=== PATIENT | male | born 1935 | race Caucasian/White ===

== ENCOUNTER → 2017-07-06 | Outpatient (REF) | payer MEDICARE, MEDICAID ==
[~2017-07-06] MED LIST: /ADVA50050; /IPRAINH; /TIOT18INH; ALBU83IN; DUONSOL; LASI20TA; LEVA500T; PRED10TA2; PRED20TA; PRED5TAB; SING10TA31; VALS80CA; VITAMIN D50000 UNT; XOPEAER; ZOCO10TA
[2017-07-06 15:14] LABS: ALBUMIN 3.7 GM/DL (3.2-5.2); ALBUMIN/GLOBULIN RATIO 1.12 (1.00-1.93); ALKALINE PHOSPHATASE 53 U/L (45-117); ALT/SGPT 21 U/L (12-78); ANION GAP 8 MEQ/L (8-16); AST/SGOT 11 U/L (15-37); BILIRUBIN,TOTAL 0.6 MG/DL (0.2-1.0); BLOOD UREA NITROGEN 8 MG/DL (7-18); CALCIUM LEVEL 8.8 MG/DL (8.8-10.2); CARBON DIOXIDE LEVEL 30 MEQ/L (21-32); CHLORIDE LEVEL 92 MEQ/L (98-107); CHOLESTEROL LEVEL 124 MG/DL (<200); CREATININE FOR GFR 0.44 MG/DL (0.70-1.30); GLOMERULAR FILTRATION RATE > 60.0 (>35); GLUCOSE, FASTING 105 MG/DL (83-110); POTASSIUM SERUM 4.2 MEQ/L (3.5-5.1); SODIUM LEVEL 130 MEQ/L (136-145); TRIGLYCERIDES LEVEL 60 MG/DL (<150)
== END ==
LOC: M LAB REF 14:03
PROVIDERS: ATTEND Family Medicine Addiction Medicine
DX: E11.9 Type 2 diabetes mellitus without complications (principal)

== ENCOUNTER 2019-05-20 09:47 | Emergency (ER) | payer MEDICAID, MEDICARE ==
[~2019-05-20] VITALS: Ht 172.7 cm; Wt 54.5 kg
[~2019-05-20 09:47] MED LIST changes: -/ADVA50050; -/IPRAINH; -/TIOT18INH; +ADVA1AER2; +ATRO0.063; +SPIR1CAP
[2019-05-20 09:48] VITALS: BP 112/52
[2019-05-20] MEDS ORDERED: SYMB16INH (09:59)
[2019-05-20] MEDS ORDERED: TAMS1CAP17 PO (09:59)
[2019-05-20] MEDS ORDERED: AZOP0.2S (09:59)
[2019-05-20] MEDS ORDERED: XARE10TA PO (09:59)
[2019-05-20] MEDS ORDERED: ROSU5TAB5 PO (09:59)
[2019-05-20] MEDS ORDERED: TRAV04OPD (09:59)
[2019-05-20] MEDS ORDERED: SPIR1CAP (09:59)
[2019-05-20] MEDS ORDERED: VENTAER (09:59)
[2019-05-20] MEDS ORDERED: DIGO0.12 PO (09:59)
[2019-05-20] MEDS ORDERED: BRIM2OPD (09:59)
[2019-05-20] MEDS ORDERED: ADACEL/BOOSTRIX VACCINE (DIPHTH/PERTUSS/ACELL/TETANUS)0.5ML SYR (90715) IM ONE (10:45)
== END 2019-05-20 11:14 | disposition home or self-care (01) ==
LOC: M ED 09:47
DX: S51.802A Unspecified open wound of left forearm, initial encounter (principal); X58.XXXA Exposure to other specified factors, initial encounter; Y92.018 Other place in single-family (private) house as the place of occurrence of the external cause; J44.9 Chronic obstructive pulmonary disease, unspecified; Z79.899 Other long term (current) drug therapy

== ENCOUNTER 2019-05-25 14:07 | Inpatient (IN) | payer MEDICARE, MEDICAID ==
[~2019-05-25] VITALS: Ht 172.7 cm; Wt 53.9 kg
[~2019-05-25 14:07] MED LIST changes: +AZOP0.2S; +BRIM2OPD; +DIGO0.12 PO; +ROSU5TAB5 PO; +SYMB16INH; +TAMS1CAP17 PO; +TRAV04OPD; +VENTAER; +XARE10TA PO
[2019-05-25] MEDS ORDERED: MONT10TA2 PO (14:18)
[2019-05-25] MEDS ORDERED: ALBUTEROL SULFATE 2.5 MG/0.5 ML INH NEB SOLN As Ordered ONE (14:26)
[2019-05-25] MEDS ORDERED: IPRATROPIUM 0.5MG/ALBUTEROL 2.5MG INH SOL UD 3ML (DUONEB)(J7620) As Ordered ONE (14:26)
[2019-05-25] MEDS ORDERED: ALBUTEROL SULFATE 2.5 MG/0.5 ML INH NEB SOLN INH ONE (14:30)
[2019-05-25] MEDS ORDERED: IPRATROPIUM 0.5MG/ALBUTEROL 2.5MG INH SOL UD 3ML (DUONEB)(J7620) NEB ONE (14:30)
[2019-05-25 15:54] LABS: BASO % 0.1 % (0.0-1.0); HEMATOCRIT 34.9 % (42.0-52.0); HEMOGLOBIN 11.4 g/dl (13.5-17.5); LYMPH # 0.5 10^3/uL (1.5-4.5); MEAN CORPUSCULAR HEMOGLOBIN 28.7 pg (27.0-33.0); MEAN CORPUSCULAR HGB CONC 32.7 g/dl (32.0-36.5); MEAN CORPUSCULAR VOLUME 87.9 fl (80.0-96.0); MONO # 1.1 10^3/uL (0.0-0.8); MONO % 13.9 % (0.0-5.0); NEUTROPHILS # 6.2 10^3/uL (1.8-7.7); NEUTROPHILS % 79.6 % (36.0-66.0); PLATELET COUNT, AUTOMATED 151 10^3/uL (150-450); RED BLOOD COUNT 3.97 10^6/uL (4.30-6.10); WHITE BLOOD COUNT 7.8 10^3/uL (4.0-10.0)
[2019-05-25 16:27] LABS: ALBUMIN 3.1 GM/DL (3.2-5.2); ALT/SGPT 24 U/L (12-78); BILIRUBIN,DIRECT 0.2 MG/DL (0.0-0.2); BILIRUBIN,TOTAL 0.5 MG/DL (0.2-1.0); BLOOD UREA NITROGEN 17 MG/DL (7-18); CALCIUM LEVEL 8.6 MG/DL (8.8-10.2); CARBON DIOXIDE LEVEL 34 MEQ/L (21-32); CHLORIDE LEVEL 88 MEQ/L (98-107); CREATININE FOR GFR 0.42 MG/DL (0.70-1.30); GLOMERULAR FILTRATION RATE > 60.0 (>35); GLUCOSE, FASTING 94 MG/DL (70-100); MAGNESIUM LEVEL 1.9 MG/DL (1.8-2.4); POTASSIUM SERUM 4.6 MEQ/L (3.5-5.1); SODIUM LEVEL 128 MEQ/L (136-145); TOTAL PROTEIN 6.6 GM/DL (6.4-8.2)
[2019-05-25] MEDS ORDERED: AZITHROMYCIN INJ 500 MG, VIAL MATE ADAPTER 1 EACH in D5W 250 ML IV ONE (16:30)
[2019-05-25] MEDS ORDERED: cefTRIAXone SOD 2 GM in D5W MINI-BAG PLUS 50 ML IV ONE (17:00)
[2019-05-25] MEDS ORDERED: GLUCAGON FOR INJ 1 MG VIAL (J1610) SC PRN (17:15)
[2019-05-25] MEDS ORDERED: DEXTROSE 50% 50 ML SYRINGE IV PRN (17:15)
[2019-05-25] MEDS ORDERED: GLUCOSE 4 GM CHEW TABLET PO PRN (17:15)
[2019-05-25] MEDS ORDERED: VENTAER INH (17:25)
[2019-05-25] MEDS ORDERED: SYMB16INH INH (17:25)
[2019-05-25] MEDS ORDERED: SPIR1CAP INH (17:25)
[2019-05-25] MEDS ORDERED: AZOP0.2S OU (17:27)
[2019-05-25] MEDS ORDERED: TRAV04OPD OU (17:27)
[2019-05-25] MEDS ORDERED: BRIM2OPD OU (17:27)
[2019-05-25] MEDS ORDERED: HumaLOG INSULIN (NovoLOG) PER UNIT SC SCH ×2 (17:30→21:00)
--- NOTE | 2019-05-25 17:47 | HPEPDOC ---
General Date of Admission May 25, 2019 at 17:09 Date of Service: May 25, 2019 Chief Complaint The patient is a 83-year-old male Who presented to the emergency room with complaints of shortness of breath History of Present Illness Patient is an 83-year-old male with a PMHx of Chronic hypoxic respiratory failure, COPD on 2L O2 by Venessa BREWER (on Digoxin / Xarelto), HTN, DM2, DLP and BPH who presented to the emergency room visit shortness of breath. Patient was brought into the ER by his son after he reported that he needed a mental health evaluation because he was feeling crazy. Upon arrival to emergency room, patient was found to be hypoxic. Patient was placed on nasal cannula ox ygen and brought up to 2 L. Patients breathing had improved and mentation had improved. Patient has reported that hes been experiencing shortness of breath that has been progressive over 2 weeks. Patient also reports that hes been expressing a productive cough with yellowish sputum. Denied any blood. Patient denies any chest pain or palpitations. Patient has been compliant with his inhaled therapy, however he is unable to recall all of his inhaled therapy. Does report that he uses Albuterol and Spiriva. Patient denies any nausea, vomiting, abdominal pain, diarrhea or discomfort with urination. Patient does report constipation. . He denies any fevers in the last 2 weeks, he does report chills. Patients family has also reported that he has experienced a weight loss of approximately 20 pounds over 1-2 months. Patient has reported a poor appetite. Patient currently lives alone. Patient reports that he may require further assistance moving forward and family is suggesting jail placement. Home Medications Scheduled Brimonidine Tartrate (Brimonidine Tartrate) 0.15% 5ML Drops, 1 DROP OU BID, (Reported) Brinzolamide (Azopt) 1% 10ML Drops.susp, 1 DROP OU BID, (Reported) Budesonide/Formoterol (Symbicort 160-4.5 Mcg Inhaler) 6 Gm Hfa.aer.ad, 2 PUFF INH BID, (Reported) Digoxin (Digoxin) 125 Mcg Tablet, 125 MCG PO DAILY, (Reported) Montelukast Sodium (Montelukast Sodium) 10 Mg Tablet, 10 MG PO DAILY, (Reported) Rivaroxaban (Xarelto) 10 Mg Tablet, 10 MG PO DAILY, (Reported) Rosuvastatin Calcium (Rosuvastatin Calcium) 5 Mg Tablet, 5 MG PO DAILY, (Reported) Tamsulosin Hcl (Tamsulosin HCl) 0.4 Mg Capsule, 0.4 MG PO DAILY, (Reported) Tiotropium Luke (Spiriva) 18 Mcg Cap.w.dev, 18 MCG INH DAILY, (Reported) Travoprost (Travatan Z) 0.004% 2.5ML Drops, 1 DROP OU QHS, (Reported) Scheduled PRN Albuterol Sulfate (Ventolin Hfa) 18 Gm Hfa.aer.ad, 2 PUFF INH Q4H PRN for SHORTNESS OF BREATH, (Reported) Allergies Coded Allergies: No Known Allergies (Verified , 11/18/09) Past Medical History Medical History Chronic hypoxic respiratory failure, COPD on 2L O2 by Venessa BREWER (on Digoxin / Xarelto), HTN, DM2, DLP and BPH Surgical History Bilateral cataract removal Left shoulder surgery Family History - Mother with history of gallstones - Father with history of emphysema Social History - Denies the use of alcohol or illicit drugs; patient is an ex-smoker and had quit in 2003 - Denies recent travel or sick contacts - Lives alone - Occupation; retired construction director Review of Systems Other systems 10 point review of systems complete, all negative otherwise stated in HPI Vital Signs - Vitals: BP 136/63, HR 102, RR 24, Sat 98%NC2L, Temp 96.8F - General: Lying in bed, No acute distress, Speaking in full sentences, AAOx3 - HEENT: NC, AT, PERRLA, EOMI - CVS: +S1S2 - Lungs: Fair air entry bilaterally, No appreciable rales / rhonchi, Mild wheezing - Abdomen: Soft, Non-distended, Non-tender - Extremities: 2+ pitting edema at feet bilaterally, No calf tenderness - Neuro: No focal motor or sensory deficit - Skin: No visible rashes Laboratory Data Labs 24H Laboratory Tests 2 05/25/19 14:26: POC pH (Misc Panel) 7.346L, POC Base Excess (Misc Panel) 16.0H, POC Saturated Percent O2 (Misc) 100H, POC pO2 (Misc Panel) 270.0H, POC pCO2 (Misc Panel) 75.7*H, POC HCO3 (Misc Panel) 41.4H, POC Total CO2 (Misc Panel) 44.0H 05/25/19 15:38: Immature Granulocyte % (Auto) 0.4, White Blood Count 7.8, Red Blood Count 3.97L, Hemoglobin 11.4L, Hematocrit 34.9L, Mean Corpuscular Volume 87.9, Mean Corpuscular Hemoglobin 28.7, Mean Corpuscular Hemoglobin Concent 32.7, Red Cell Distribution Width 13.6, Platelet Count 151, Neutrophils (%) (Auto) 79.6H, Lymphocytes (%) (Auto) 6.0L, Monocytes (%) (Auto) 13.9H, Eosinophils (%) (Auto) 0.0, Basophils (%) (Auto) 0.1, Neutrophils # (Auto) 6.2, Lymphocytes # (Auto) 0.5L, Monocytes # (Auto) 1.1H, Eosinophils # (Auto) 0.0, Basophils # (Auto) 0.0, Nucleated Red Blood Cells % (auto) 0.0, Anion Gap 6L, Glomerular Filtration Rate > 60.0, Calcium Level 8.6L, Magnesium Level 1.9, Aspartate Amino Transf (AST/SGOT) 20, Alanine Aminotransferase (ALT/SGPT) 24, Alkaline Phosphatase 48, Total Bilirubin 0.5, Direct Bilirubin 0.2, Total Protein 6.6, Albumin 3.1L, Albumin/Globulin Ratio 0.89L, Thyroid Stimulating Hormone (TSH) 2.700 05/25/19 17:33: CBC/BMP Laboratory Tests 05/25/19 15:38 Red Blood Count 3.97 L, Mean Corpuscular Volume 87.9, Mean Corpuscular Hemoglobin 28.7, Mean Corpuscular Hemoglobin Concent 32.7, Red Cell Distribution Width 13.6, Neutrophils (%) (Auto) 79.6 H, Lymphocytes (%) (Auto) 6.0 L, Monocytes (%) (Auto) 13.9 H, Eosinophils (%) (Auto) 0.0, Basophils (%) (Auto) 0.1, Neutrophils # (Auto) 6.2, Lymphocytes # (Auto) 0.5 L, Monocytes # (Auto) 1.1 H, Eosinophils # (Auto) 0.0, Basophils # (Auto) 0.0 Microbiology Microbiology 05/25/19 Blood Culture, Received Pending 05/25/19 Blood Culture, Received Pending 05/25/19 Gram Stain, Received Pending 05/25/19 Sputum Culture, Received Pending Plan / VTE VTE Prophylaxis Ordered?: Yes Plan Plan Shortness of breath - likely 2/2 acute COPD exacerbation and community acquired pneumonia - Patient has reported shortness of breath associated with productive cough with yellow sputum - Has reported subjective chills - Patient remains hemodynamically stable and afebrile - No evidence of leukocytosis - CXR 05/25: Diffuse interstitial infiltrate in left lung - Will start patient on ceftriaxone and azithromycin; will continue with Solu- Medrol - c/w inhaled therapy as ordered Bilateral pitting edema at lower extremities - Patient does not have a history of congestive heart failure - Not a diuretic therapy as an outpatient - Will get echocardiogram to evaluate ejection fraction - Will give single dose furosemide Chronic hypoxic respiratory failure - Patient uses 2 L of nasal cannula at baseline - Will continue with current oxygen therapy to maintain saturation between 88, 92 Hyponatremia - possibly 2/2 hypotonic euvolemic etiology, possibly 2/2 hypotonic hypervolemic etiology - Will check urine / serum osmolality, urine electrolytes, Thyroid function and Coritsol levels - Will hold off on IV fluids at this time - Will give Furosemide x1 dose now A. fib - c/w rate / rhythm control with Digoxin - c/w full anticoagulation with Xarelto HTN - Blood pressure appears normotensive emergency room - Well continue to monitor DM2 - Patient is reported that he has a history of diabetes but is currently not on any medications - Will check A1c - Will start ISS DLP - c/w statin BPH - c/w Tamsulosin DVT prophylaxis - c/w full anticoagulation with Xarelto REJI PLASCENCIA MD May 25, 2019 17:47
[2019-05-25] MEDS ORDERED: FUROSEMIDE 40 MG/4 ML VIAL (J1940) IV ONE (18:00)
[2019-05-25 18:12] LABS: FREE T4 1.23 NG/DL (0.76-1.46); THYROID STIMULATING HORMONE 2.74 uIU/ML (0.358-3.740)
[2019-05-25 18:48] VITALS: BP 124/56
--- NOTE | 2019-05-25 19:26 | ECGEPIP ---
[facility] - ED Test Date: 2019-05-25 Pat Name: JOIE CHESTER Department: Room: [facility] Gender: Male Extermination Inspector: : [id number] Requested By: TYRELL Dunn Order Number: [id number] Reading MD: Daphne Huertas Measurements Intervals [place] Rate: 96 P: VT: -1 QRS: 65 QRSD: 94 T: 91 QT: 331 QTc: 420 Interpretive Statements ATRIAL FIBRILLATION POSSIBLE RIGHT VENTRICULAR CONDUCTION DELAY MINIMAL ST DEPRESSION ABNORMAL RHYTHM ECG 02/22/[address] T WAVE CHANGES Electronically Signed on 05-25-2019 19:26:07 EDT by Daphne Huertas
[2019-05-25] MEDS: methylPREDNISolone INJ 40 MG/1 ML VIAL (J2920) IV SCH (19:29)
[2019-05-25 20:37] LABS: CORTISOL BASELINE 20.5 UG/DL (4.3-22.4); TOTAL T3 67.7 NG/DL (60.0-181.0)
[2019-05-25] MEDS: BRIMONIDINE 0.15% OPHTH SOLN 5 ML OU SCH (21:00)
[2019-05-25] MEDS: LATANOPROST 0.005% OPHTH SOLN 2.5 ML OU SCH (21:00)
[2019-05-25 22:00] VITALS: BP 131/59
[2019-05-25] MEDS: IPRATROPIUM 0.5MG/ALBUTEROL 2.5MG INH SOL UD 3ML (DUONEB)(J7620) NEB SCH (22:06)
[2019-05-25] MEDS: SYMBICORT 160/4.5MCG INHALER 6GM INH SCH (22:10)
[2019-05-26] MEDS: methylPREDNISolone INJ 40 MG/1 ML VIAL (J2920) IV SCH ×3 (01:39→17:10)
[2019-05-26] MEDS: IPRATROPIUM 0.5MG/ALBUTEROL 2.5MG INH SOL UD 3ML (DUONEB)(J7620) NEB SCH ×4 (02:00→18:40)
[2019-05-26] MEDS: IPRATROPIUM 0.5MG/ALBUTEROL 2.5MG INH SOL UD 3ML (DUONEB)(J7620) NEB PRN ×2 (05:21→21:28)
[2019-05-26 06:00] VITALS: BP 118/77
--- NOTE | 2019-05-26 07:25 | REP ---
CHEST, PORTABLE: Two AP portable views of the chest are performed and compared to a prior study of 02/09/2012. Diffuse interstitial infiltrate is seen in the left lung. There is mild underlying interstitial fibrosis bilaterally. The heart is not significantly enlarged. There is calcification and tortuosity of the thoracic aorta. The mediastinal silhouette is unchanged. IMPRESSION: Diffuse interstitial infiltrate, left lung. Electronically Signed by Parminder Salcedo MD 05/26/2019 10:22 P
[2019-05-26 07:29] LABS: HEMATOCRIT 34.8 % (42.0-52.0); HEMOGLOBIN 11.6 g/dl (13.5-17.5); LYMPH % 7.3 % (24.0-44.0); MEAN CORPUSCULAR HEMOGLOBIN 29.9 pg (27.0-33.0); MEAN CORPUSCULAR HGB CONC 33.3 g/dl (32.0-36.5); MEAN CORPUSCULAR VOLUME 89.7 fl (80.0-96.0); MONO # 0.1 10^3/uL (0.0-0.8); MONO % 3.7 % (0.0-5.0); NEUTROPHILS # 2.4 10^3/uL (1.8-7.7); NEUTROPHILS % 88.6 % (36.0-66.0); PLATELET COUNT, AUTOMATED 201 10^3/uL (150-450); RED BLOOD COUNT 3.88 10^6/uL (4.30-6.10); WHITE BLOOD COUNT 2.7 10^3/uL (4.0-10.0)
[2019-05-26] MEDS: SYMBICORT 160/4.5MCG INHALER 6GM INH SCH ×2 (07:43→21:28)
[2019-05-26] MEDS: TIOTROPIUM INHALER/CAPSULE (SPIRIVA) INH SCH (07:43)
[2019-05-26 07:47] LABS: BLOOD UREA NITROGEN 14 MG/DL (7-18); CALCIUM LEVEL 8.7 MG/DL (8.8-10.2); CARBON DIOXIDE LEVEL 39 MEQ/L (21-32); CHLORIDE LEVEL 82 MEQ/L (98-107); CREATININE FOR GFR 0.46 MG/DL (0.70-1.30); GLOMERULAR FILTRATION RATE > 60.0 (>35); GLUCOSE, FASTING 117 MG/DL (70-100); MAGNESIUM LEVEL 1.8 MG/DL (1.8-2.4); POTASSIUM SERUM 4.2 MEQ/L (3.5-5.1); SODIUM LEVEL 129 MEQ/L (136-145)
[2019-05-26 07:53] LABS: LYMPH # 0.2 10^3/uL (1.5-4.5)
[2019-05-26 08:02] LABS: HEMOGLOBIN A1c 5.7 %
[2019-05-26] MEDS ORDERED: FUROSEMIDE 40 MG/4 ML VIAL (J1940) IV ONE (08:15)
[2019-05-26] MEDS: TAMSULOSIN 0.4 MG CAP PO SCH (09:39)
[2019-05-26] MEDS: DIGOXIN 0.125 MG TAB PO SCH (09:39)
[2019-05-26] MEDS: ROSUVASTATIN 10 MG TAB (CRESTOR) PO SCH (09:40)
[2019-05-26] MEDS: RIVAROXABAN 10 MG TAB (XARELTO) PO SCH (09:40)
[2019-05-26] MEDS: MONTELUKAST 10 MG TAB PO SCH (09:40)
[2019-05-26] MEDS: BRIMONIDINE 0.15% OPHTH SOLN 5 ML OU SCH ×2 (09:41→22:45)
--- NOTE | 2019-05-26 11:53 | IPNPDOC ---
Text Note Date of Service The patient was seen on 05/26/19. NOTE Subjective: Patient is an 83-year-old male with a PMHx of Chronic hypoxic respiratory failure, COPD on 2L O2 by Venessa BREWER fib (on Digoxin / Xarelto), HTN, D M2, DLP and BPH who presented to the emergency room visit shortness of breath. Patient was brought into the ER by his son after he reported that he needed a mental health evaluation because he was feeling crazy. Upon arrival to emergency room, patient was found to be hypoxic. Patient was placed on nasal cannula oxygen and brought up to 2 L. Patients breathing had improved and mentation had improved. Patient has reported that hes been experiencing shortness of breath that has been progressive over 2 weeks. Patient also reports that hes been expressing a productive cough with yellowish sputum. Denied any blood. Patient denies any chest pain or palpitations. Patient has been compliant with his inhaled therapy, however he is unable to recall all of his inhaled therapy. Does report that he uses Albuterol and Spiriva. Patient was seen and examined at the bedside. . Currently, patient reports that his breathing is doing better. Still reports a mild cough. Denies chest pain or palpitations. Patient denies any abdominal pain, diarrhea or discomfort with urination. This morning patient had noted to the nurse at, he had thoughts of killing himself; reported to nurse, "I'm feeling suicidal, I want to hang myself." Patient reports that he has a history of suicidal ideation. When asked if he ever has planned to harm himself. He reported that he is not going to tell me. Objective: Vitals (See below) General: Lying in bed, no acute distress, comfortable, AAOx3 HEENT: NC, AT CVS: +S1S2 Lungs: Fair air entry b/l, there does not appear to be any auscultated rhonchi, rales or wheezing Abdomen: Soft, ND, NT Extremities: Trace to 1+ edema noted, - Calf tenderness Assessment and plan: Shortness of breath - likely 2/2 acute COPD exacerbation and community acquired pneumonia - Patient has reported shortness of breath associated with productive cough with yellow sputum - Has reported subjective chills - Patient remains hemodynamically stable and afebrile - No evidence of leukocytosis - CXR 05/25: Diffuse interstitial infiltrate in left lung - c/w ceftriaxone and azithromycin (day #2); - c/w Solu-Medrol; will continue with current dose - c/w inhaled therapy as ordered Bilateral pitting edema at lower extremities - Patient does not have a history of congestive heart failure - Not a diuretic therapy as an outpatient - Will get echocardiogram to evaluate ejection fraction - s/p Furosemide x1; will give additional dose today Chronic hypoxic respiratory failure - Patient uses 2 L of nasal cannula at baseline - Will continue with current oxygen therapy to maintain saturation between 88, 92 Hyponatremia - possibly 2/2 hypotonic euvolemic etiology, possibly 2/2 hypotonic hypervolemic etiology - Will check urine / serum osmolality, urine electrolytes, Thyroid function and Coritsol levels - Hold off on IV fluids at this time - c/w Furosemide Suicidal ideation - Patient has reported this morning that he had thoughts of harming himself; has reported history of self harm thoughts in the past - Will c/w Bed side sitter - Will get Psychiatry evaluation; discussed with Dr. Dajuan Clifford fib - c/w rate / rhythm control with Digoxin - c/w full anticoagulation with Xarelto HTN - Blood pressure appears normotensive emergency room - Well continue to monitor Hyperglycemia history - Patient is reported that he has a history of diabetes but is currently not on any medications - A1c of 5.7 - Will DC ISS DLP - c/w statin BPH - c/w Tamsulosin DVT prophylaxis - c/w full anticoagulation with Xarelto VS,Fishbone, I+O VS, Fishbone, I+O Laboratory Tests 05/25/19 15:38 Red Blood Count 3.97 L, Mean Corpuscular Volume 87.9, Mean Corpuscular Hemoglobin 28.7, Mean Corpuscular Hemoglobin Concent 32.7, Red Cell Distribution Width 13.6, Neutrophils (%) (Auto) 79.6 H, Lymphocytes (%) (Auto) 6.0 L, Monocytes (%) (Auto) 13.9 H, Eosinophils (%) (Auto) 0.0, Basophils (%) (Auto) 0 .1, Neutrophils # (Auto) 6.2, Lymphocytes # (Auto) 0.5 L, Monocytes # (Auto) 1.1 H, Eosinophils # (Auto) 0.0, Basophils # (Auto) 0.0 05/26/19 07:16 Red Blood Count 3.88 L, Mean Corpuscular Volume 89.7, Mean Corpuscular Hemoglobin 29.9, Mean Corpuscular Hemoglobin Concent 33.3, Red Cell Distribution Width 13.6, Neutrophils (%) (Auto) 88.6 H, Lymphocytes (%) (Auto) 7.3 L, Emmons cytes (%) (Auto) 3.7, Eosinophils (%) (Auto) 0.0, Basophils (%) (Auto) 0.0, Neutrophils # (Auto) 2.4, Lymphocytes # (Auto) 0.2 L, Monocytes # (Auto) 0.1, Eosinophils # (Auto) 0.0, Basophils # (Auto) 0.0, Calcium Level 8.7 L Vital Signs Date Time Temp Pulse Resp B/P (MAP) Pulse Ox O2 Delivery O2 Flow Rate FiO2 05/26/19 09:39 113 05/26/19 06:00 97.8 22 118/77 (91) 95 2.0 05/25/19 18:10 Nasal Cannula I&O- Last 24 Hours up to 6 AM 05/26/19 06:00 Intake Total 570 ml Output Total 400 ml Balance 170 ml REJI PLASCENCIA MD May 26, 2019 11:53
[2019-05-26 14:00] VITALS: BP 120/71
[2019-05-26] MEDS ORDERED: cefTRIAXone SOD 1 GM in D5W MINI-BAG PLUS 50 ML IV SCH (16:00)
[2019-05-26] MEDS ORDERED: AZITHROMYCIN INJ 500 MG, VIAL MATE ADAPTER 1 EACH in D5W 250 ML IV SCH (17:00)
[2019-05-26 22:00] VITALS: BP 117/74
[2019-05-26] MEDS: LATANOPROST 0.005% OPHTH SOLN 2.5 ML OU SCH (23:01)
[2019-05-26] MEDS ORDERED: CALCIUM CARBONATE 500 MG CHEW U/D PO PRN (23:15)
[2019-05-27] MEDS: IPRATROPIUM 0.5MG/ALBUTEROL 2.5MG INH SOL UD 3ML (DUONEB)(J7620) NEB SCH ×5 (01:45→19:34)
[2019-05-27] MEDS: methylPREDNISolone INJ 40 MG/1 ML VIAL (J2920) IV SCH ×2 (02:47→09:39)
[2019-05-27 05:25] VITALS: BP 115/70
[2019-05-27 06:00] VITALS: BP 115/70
[2019-05-27 06:10] LABS: HEMATOCRIT 33.2 % (42.0-52.0); LYMPH # 0.3 10^3/uL (1.5-4.5); LYMPH % 2.8 % (24.0-44.0); MEAN CORPUSCULAR HEMOGLOBIN 28.6 pg (27.0-33.0); MEAN CORPUSCULAR HGB CONC 33.1 g/dl (32.0-36.5); MEAN CORPUSCULAR VOLUME 86.2 fl (80.0-96.0); MONO # 0.8 10^3/uL (0.0-0.8); MONO % 8.9 % (0.0-5.0); NEUTROPHILS # 8.1 10^3/uL (1.8-7.7); NEUTROPHILS % 87.8 % (36.0-66.0); PLATELET COUNT, AUTOMATED 207 10^3/uL (150-450); RED BLOOD COUNT 3.85 10^6/uL (4.30-6.10); WHITE BLOOD COUNT 9.3 10^3/uL (4.0-10.0)
[2019-05-27 06:34] LABS: BLOOD UREA NITROGEN 21 MG/DL (7-18); CALCIUM LEVEL 8.6 MG/DL (8.8-10.2); CARBON DIOXIDE LEVEL 41 MEQ/L (21-32); CHLORIDE LEVEL 82 MEQ/L (98-107); CREATININE FOR GFR 0.52 MG/DL (0.70-1.30); GLOMERULAR FILTRATION RATE > 60.0 (>35); GLUCOSE, FASTING 122 MG/DL (70-100); POTASSIUM SERUM 3.7 MEQ/L (3.5-5.1); SODIUM LEVEL 127 MEQ/L (136-145)
[2019-05-27] MEDS: LevoFLOXacin 750 MG TABLET PO SCH (07:41)
[2019-05-27] MEDS ORDERED: ONDANSETRON 4MG/2ML VIAL (J2405) IV PRN (07:45)
--- NOTE | 2019-05-27 08:09 | REP ---
Portable chest, two AP views with the the patient upright, 07:54 a.m.: Comparison is 05/25/2019. Hyperinflation is again identified, unchanged. Diffuse interstitial infiltrate throughout the left lung is unchanged. Right lung is otherwise clear, unchanged. Cardiac size is normal. The vamsi and mediastinum are unchanged. 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 Impression: There is no interval change. Electronically Signed by Parminder Rodriguez MD 05/27/2019 08:01 A
[2019-05-27] MEDS: SYMBICORT 160/4.5MCG INHALER 6GM INH SCH ×2 (08:29→19:34)
[2019-05-27] MEDS: TIOTROPIUM INHALER/CAPSULE (SPIRIVA) INH SCH (08:30)
[2019-05-27] MEDS: ROSUVASTATIN 10 MG TAB (CRESTOR) PO SCH (09:40)
[2019-05-27] MEDS: TAMSULOSIN 0.4 MG CAP PO SCH (09:40)
[2019-05-27] MEDS: DIGOXIN 0.125 MG TAB PO SCH (09:40)
[2019-05-27] MEDS: BRIMONIDINE 0.15% OPHTH SOLN 5 ML OU SCH ×2 (09:41→21:27)
[2019-05-27] MEDS: RIVAROXABAN 10 MG TAB (XARELTO) PO SCH (09:41)
[2019-05-27] MEDS: MONTELUKAST 10 MG TAB PO SCH (09:41)
--- NOTE | 2019-05-27 11:05 | IPNPDOC ---
Text Note Date of Service The patient was seen on 05/27/19. NOTE Subjective: Patient is an 83-year-old male with a PMHx of Chronic hypoxic respiratory failure, COPD on 2L O2 by Venessa BREWER (on Digoxin / Xarelto), HTN, D M2, DLP and BPH who presented to the emergency room visit shortness of breath. Patient was brought into the ER by his son after he reported that he needed a mental health evaluation because he was feeling crazy. Upon arrival to emergency room, patient was found to be hypoxic. Patient was placed on nasal cannula oxygen and brought up to 2 L. Patients breathing had improved and mentation had improved. Patient has reported that hes been experiencing shortness of breath that has been progressive over 2 weeks. Patient also reports that hes been expressing a productive cough with yellowish sputum. Denied any blood. Patient denies any chest pain or palpitations. Patient has been compliant with his inhaled therapy, however he is unable to recall all of his inhaled therapy. Does report that he uses Albuterol and Spiriva. Patient was seen and examined at the bedside. Patient reports that he was experiencing nausea and vomiting overnight. Currently denies any chest pain, shortness of breath or palpitations. Patient does report cough. Denies any abdominal pain, diarrhea, or burning with urination. Objective: Vitals (See below) General: Lying in bed, no acute distress, comfortable, AAOx3 HEENT: NC, AT CVS: +S1S2 Lungs: Air entry remains fair bilaterally without evidence of rhonchi, rales or wheezing Abdomen: Soft, nondistended, without tenderness Extremities: There is trace pitting edema bilaterally, - Calf tenderness Assessment and plan: Shortness of breath - likely 2/2 acute COPD exacerbation and Pseudomonas pneumonia - Patient has reported shortness of breath associated with productive cough with yellow sputum - Has reported subjective chills - Patient remains hemodynamically stable and afebrile - No evidence of leukocytosis - Sputum culture: Pseudomonas - CXR 05/25: Diffuse interstitial infiltrate in left lung - Will start Levaquin; Will DC ceftriaxone and azithromycin (Antibiotic Day #3) - c/w Solu-Medrol; will reduce frequency - c/w inhaled therapy as ordered Bilateral pitting edema at lower extremities - Appears to have improved - Patient does not have a history of congestive heart failure - Not a diuretic therapy as an outpatient - Echocardiogram pending - s/p Furosemide x2 Chronic hypoxic respiratory failure - Patient uses 2 L of nasal cannula at baseline - Will continue with current oxygen therapy to maintain saturation between 88, 92 Hyponatremia - possibly 2/2 hypotonic euvolemic etiology, possibly 2/2 hypotonic hypervolemic etiology - Hypotonic osmolality - Urine electrolytes pending - Thyroid function and Cortisol levels noted and within normal limits - Hold off on IV fluids at this time - s/p Furosemide Suicidal ideation - Patient has reported on 05/26 AM that he had thoughts of harming himself; has reported history of self harm thoughts in the past - c/w Bed side sitter - Psychiatry consulted; discussed with Dr. Graff - will evaluate today A. fib - c/w rate / rhythm control with Digoxin - c/w full anticoagulation with Xarelto HTN - Blood pressure appears normotensive emergency room - Will continue to monitor Hyperglycemia history - Patient is reported that he has a history of diabetes but is currently not on any medications - A1c of 5.7 - s/p ISS DLP - c/w statin BPH - c/w Tamsulosin DVT prophylaxis - c/w full anticoagulation with Xarelto Disposition: - Psychiatry evaluation - Hyponatremia evaluation - Pseudomonas pneumonia / COPD treatment - Likely will require placement to [facility] VS,Fishbone, I+O VS, Fishbone, I+O Laboratory Tests 05/27/19 05:52 Red Blood Count 3.85 L, Mean Corpuscular Volume 86.2, Mean Corpuscular Hemoglobin 28.6, Mean Corpuscular Hemoglobin Concent 33.1, Red Cell Distribution Width 13.9, Neutrophils (%) (Auto) 87.8 H, Lymphocytes (%) (Auto) 2.8 L, Monocytes (%) (Auto) 8.9 H, Eosinophils (%) (Auto) 0.0, Basophils (%) (Auto) 0.0, Neutrophils # (Auto) 8.1 H, Lymphocytes # (Auto) 0.3 L, Monocytes # (Auto) 0.8, Eosinophils # (Auto) 0.0, Basophils # (Auto) 0.0, Calcium Level 8.6 L Vital Signs Date Time Temp Pulse Resp B/P (MAP) Pulse Ox O2 Delivery O2 Flow Rate FiO2 05/27/19 09:40 110 05/27/19 06:00 98.2 22 115/70 (85) 88 2.0 05/25/19 18:10 Nasal Cannula I&O- Last 24 Hours up to 6 AM 05/27/19 06:00 Intake Total 1040 ml Output Total 850 ml Balance 190 ml REJI PLASCENCIA MD May 27, 2019 11:05
[2019-05-27 12:50] LABS: BLOOD UREA NITROGEN 22 MG/DL (7-18); CALCIUM LEVEL 8.6 MG/DL (8.8-10.2); CARBON DIOXIDE LEVEL 39 MEQ/L (21-32); CHLORIDE LEVEL 81 MEQ/L (98-107); CREATININE FOR GFR 0.49 MG/DL (0.70-1.30); GLOMERULAR FILTRATION RATE > 60.0 (>35); GLUCOSE, FASTING 125 MG/DL (70-100); POTASSIUM SERUM 4.1 MEQ/L (3.5-5.1); SODIUM LEVEL 127 MEQ/L (136-145)
[2019-05-27 14:00] VITALS: BP 119/70
[2019-05-27 14:50] LABS: CREATININE,RANDOM URINE 90.6 MG/DL; POTASSIUM RANDOM URINE 55.3 MEQ/L
[2019-05-27 18:00] VITALS: BP 123/70
[2019-05-27 18:33] VITALS: BP 123/70
[2019-05-27 20:47] VITALS: BP 100/58
[2019-05-27] MEDS: LATANOPROST 0.005% OPHTH SOLN 2.5 ML OU SCH (21:27)
[2019-05-27] MEDS ORDERED: methylPREDNISolone INJ 40 MG/1 ML VIAL (J2920) IV SCH (22:00)
[2019-05-28] VITALS (9 sets, daily range): BP systolic 120–159; BP diastolic 60–88
[2019-05-28] MEDS: LevoFLOXacin 750 MG TABLET PO SCH (05:52)
[2019-05-28 06:09] LABS: HEMATOCRIT 33.5 % (42.0-52.0); LYMPH % 3.6 % (24.0-44.0); MEAN CORPUSCULAR HEMOGLOBIN 29.3 pg (27.0-33.0); MEAN CORPUSCULAR HGB CONC 32.8 g/dl (32.0-36.5); MEAN CORPUSCULAR VOLUME 89.3 fl (80.0-96.0); MONO # 0.8 10^3/uL (0.0-0.8); NEUTROPHILS # 5.2 10^3/uL (1.8-7.7); NEUTROPHILS % 82.6 % (36.0-66.0); PLATELET COUNT, AUTOMATED 200 10^3/uL (150-450); RED BLOOD COUNT 3.75 10^6/uL (4.30-6.10); WHITE BLOOD COUNT 6.3 10^3/uL (4.0-10.0)
[2019-05-28 06:28] LABS: BLOOD UREA NITROGEN 20 MG/DL (7-18); CALCIUM LEVEL 8.6 MG/DL (8.8-10.2); CARBON DIOXIDE LEVEL 40 MEQ/L (21-32); CHLORIDE LEVEL 83 MEQ/L (98-107); CREATININE FOR GFR 0.44 MG/DL (0.70-1.30); GLOMERULAR FILTRATION RATE > 60.0 (>35); GLUCOSE, FASTING 133 MG/DL (70-100); MAGNESIUM LEVEL 1.9 MG/DL (1.8-2.4); POTASSIUM SERUM 3.7 MEQ/L (3.5-5.1); SODIUM LEVEL 126 MEQ/L (136-145)
[2019-05-28 06:52] LABS: LYMPH # 0.2 10^3/uL (1.5-4.5)
[2019-05-28] MEDS: SYMBICORT 160/4.5MCG INHALER 6GM INH SCH ×2 (07:23→19:38)
[2019-05-28] MEDS: TIOTROPIUM INHALER/CAPSULE (SPIRIVA) INH SCH (07:23)
[2019-05-28] MEDS: IPRATROPIUM 0.5MG/ALBUTEROL 2.5MG INH SOL UD 3ML (DUONEB)(J7620) NEB SCH ×2 (07:23→14:00)
[2019-05-28] MEDS ORDERED: predniSONE 20 MG TAB PO SCH (09:00)
[2019-05-28] MEDS: DIGOXIN 0.125 MG TAB PO SCH (09:55)
[2019-05-28] MEDS: BRIMONIDINE 0.15% OPHTH SOLN 5 ML OU SCH ×2 (09:56→20:19)
[2019-05-28] MEDS: RIVAROXABAN 10 MG TAB (XARELTO) PO SCH (09:56)
[2019-05-28] MEDS: TAMSULOSIN 0.4 MG CAP PO SCH (09:56)
[2019-05-28] MEDS: MONTELUKAST 10 MG TAB PO SCH (09:56)
[2019-05-28] MEDS: ROSUVASTATIN 10 MG TAB (CRESTOR) PO SCH (09:56)
--- NOTE | 2019-05-28 11:08 | IPNPDOC ---
Date Seen The patient was seen on 05/28/19. Progress Note SUBJECTIVE: Lost iv access. solumedrol discontinued. on po prednisone Son at the bedside is requesting placement as the pt lives alone. 2 sons and a daughter are unable to provide 29/05 care. some sob and chisholm. no le edema. no chest pain, pressure or heaviness. denies lightheadedness or dizziness . on levaquin for pseudomonas in sputum OBJECTIVE: PHYSICAL EXAMINATION: - Vitals: pls see below - General: Lying in bed, No acute distress, Speaking in full sentences, AAOx3 - HEENT: NC, AT, PERRLA, EOMI - CVS: +S1S2 - Lungs: Fair air entry bilaterally, left lung rhonchi, Mild wheezing - Abdomen: Soft, Non-distended, Non-tender - Extremities: No calf tenderness - Neuro: No focal motor or sensory deficit - Skin: No visible rashes ADMISSION LABORATORY DATA: 05/25/19 14:26: POC pH (Misc Panel) 7.346L, POC Base Excess (Misc Panel) 16.0H, POC Saturated Percent O2 (Misc) 100H, POC pO2 (Misc Panel) 270.0H, POC pCO2 (Misc Panel) 75.7*H, POC HCO3 (Misc Panel) 41.4H, POC Total CO2 (Misc Panel) 44.0H 05/25/19 15:38: Immature Granulocyte % (Auto) 0.4, White Blood Count 7.8, Red Blood Count 3.97L, Hemoglobin 11.4L, Hematocrit 34.9L, Mean Corpuscular Volume 87.9, Mean Corpuscular Hemoglobin 28.7, Mean Corpuscular Hemoglobin Concent 32.7, Red Cell Distribution Width 13.6, Platelet Count 151, Neutrophils (%) (Auto) 79.6H, Lymphocytes (%) (Auto) 6.0L, Monocytes (%) (Auto) 13.9H, Eosinophils (%) (Auto) 0.0, Basophils (%) (Auto) 0.1, Neutrophils # (Auto) 6.2, Lymphocytes # (Auto) 0.5L, Monocytes # (Auto) 1.1H, Eosinophils # (Auto) 0.0, Basophils # (Auto) 0.0, Nucleated Red Blood Cells % (auto) 0.0, Anion Gap 6L, Glomerular Filtration Rate > 60.0, Calcium Level 8.6L, Magnesium Level 1.9, Aspartate Amino Transf (AST/SGOT) 20, Alanine Aminotransferase (ALT/SGPT) 24, Alkaline Phosphatase 48, Total Bilirubin 0.5, Direct Bilirubin 0.2, Total Protein 6.6, Albumin 3.1L, Albumin/Globulin Ratio 0.89L, Thyroid Stimulating Hormone (TSH) 2.700 05/25/19 17:33: CBC/BMP Laboratory Tests 05/25/19 15:38 Red Blood Count 3.97 L, Mean Corpuscular Volume 87.9, Mean Corpuscular Hemoglobin 28.7, Mean Corpuscular Hemoglobin Concent 32.7, Red Cell Distribution Width 13.6, Neutrophils (%) (Auto) 79.6 H, Lymphocytes (%) (Auto) 6.0 L, Monocytes (%) (Auto) 13.9 H, Eosinophils (%) (Auto) 0.0, Basophils (%) (Auto) 0.1, Neutrophils # (Auto) 6.2, Lymphocytes # (Auto) 0.5 L, Monocytes # (Auto) 1.1 H, Eosinophils # (Auto) 0.0, Basophils # (Auto) 0.0 Microbiology LABORATORY DATA, IMAGING STUDIES, MICROBIOLOGY: PLS SEE BELOW ASSESSMENT AND PLAN: Patient is an 83-year-old male with a PMHx of Chronic hypoxic respiratory failure, COPD on 2L O2 by Venessa BREWER (on Digoxin / Xarelto), HTN, DM2, DLP and BPH who presented to the emergency room visit shortness of breath.Patient was brought into the ER by his son after he reported that he needed a mental health evaluation because he was feeling crazy. Upon arrival to emergency room, patient was found to be hypoxic. Patient was placed on nasal cannula oxygen and brought up to 2 L. Patients breathing had improved and mentation had improved.Patient has reported that hes been experiencing shortness of breath that has been progressive over 2 weeks. Patient also reports that hes been expressing a productive cough with yellowish sputum. Denied any blood. Patient denies any chest pain or palpitations. Patient has been compliant with his inhaled therapy, however he is unable to recall all of his inhaled therapy. Does report that he uses Albuterol and Spiriva.Patient denies any nausea, vomiting, abdominal pain, diarrhea or discomfort with urination. Patient does report constipation. . He denies any fevers in the last 2 weeks, he does report chills. Patients family has also reported that he has experienced a weight loss of approximately 20 pounds over 1-2 months. Patient has reported a poor appetite. Patient currently lives alone. Patient reports that he may require further assistance moving forward and family is suggesting jail placement. acute COPD exacerbation - due to Left lung community acquired pneumonia - Patient has reported shortness of breath associated with productive cough with yellow sputum - Has reported subjective chills - Patient remains hemodynamically stable and afebrile - No evidence of leukocytosis - CXR 05/25: Diffuse interstitial infiltrate in left lung - on levaquin - s/p IV Solu-Medrol lost iv access, changed to po prednisone 05/28/19 - c/w inhaled therapy as ordered Left lung community acquired pneumonia -on levaquin -sputum cx: pseudomonas sensitive Bilateral pitting edema at lower extremities - Patient does not have a history of congestive heart failure - Not a diuretic therapy as an outpatient - echocardiogram to evaluate ejection fraction - s/p furosemide - venous dopplers to r/o dvt Chronic hypoxic respiratory failure - Patient uses 2 L of nasal cannula at baseline - Will continue with current oxygen therapy to maintain saturation between 88, 92 Hyponatremia - possibly 2/2 hypotonic euvolemic etiology, possibly 2/2 hypotonic hypervolemic etiology - reviewed urine / serum osmolality, urine electrolytes, Thyroid function and Coritsol levels - no IV fluids at this time - s/p one dose of lasix A. fib - c/w rate / rhythm control with Digoxin - c/w full anticoagulation with Xarelto HTN - Blood pressure appears normotensive emergency room - Well continue to monitor DM2 - Patient is reported that he has a history of diabetes but is currently not on any medications - reviewd A1c5.7 DLP - c/w statin BPH - c/w Tamsulosin DVT prophylaxis - c/w full anticoagulation with Xarelto disposition: family requests placement. VS, I&O, 24H, Fishbone Vital Signs/I&O Vital Signs Date Time Temp Pulse Resp B/P (MAP) Pulse Ox O2 Delivery O2 Flow Rate FiO2 05/28/19 09:55 108 05/28/19 05:47 98.0 20 127/62 (83) 91 05/27/19 21:27 2.0 05/25/19 18:10 Nasal Cannula I&O- Last 24 Hours up to 6 AM 05/28/19 06:00 Intake Total 1390 ml Output Total 865 ml Balance 525 ml Laboratory Data 24H LABS Laboratory Tests 2 05/27/19 11:54: Anion Gap 7L, Glomerular Filtration Rate > 60.0, Blood Urea Nitrogen 22H, Creatinine 0.49L, Sodium Level 127L, Potassium Level 4.1, Chloride Level 81L, Carbon Dioxide Level 39H, Calcium Level 8.6L 05/27/19 14:06: Urine Random Osmolality 670, Urine Random Creatinine 90.6, Urine Random Sodium 27, Urine Random Potassium 55.3, Urine Random Chloride 13 05/28/19 05:32: Anion Gap 3L, Glomerular Filtration Rate > 60.0, Blood Urea Nitrogen 20H, Creatinine 0.44L, Sodium Level 126L, Potassium Level 3.7, Chloride Level 83L, Ca rbon Dioxide Level 40H, Calcium Level 8.6L, Immature Granulocyte % (Auto) 0.8, White Blood Count 6.3, Red Blood Count 3.75L, Hemoglobin 11.0L, Hematocrit 33.5L, Mean Corpuscular Volume 89.3, Mean Corpuscular Hemoglobin 29.3, Mean Corpuscular Hemoglobin Concent 32.8, Red Cell Distribution Width 13.8, Platelet Count 200, Neutrophils (%) (Auto) 82.6H, Lymphocytes (%) (Auto) 3.6L, Monocytes (%) (Auto) 13.0H, Eosinophils (%) (Auto) 0.0, Basophils (%) (Auto) 0.0, Neutrophils # (Auto) 5.2, Lymphocytes # (Auto) 0.2L, Monocytes # (Auto) 0.8, Eosinophils # (Auto) 0.0, Basophils # (Auto) 0.0, Nucleated Red Blood Cells % (auto) 0.0, Magnesium Level 1.9 CBC/BMP Laboratory Tests 05/27/19 11:54 Calcium Level 8.6 L 05/28/19 05:32 Calcium Level 8.6 L, Red Blood Count 3.75 L, Mean Corpuscular Volume 89.3, Mean Corpuscular Hemoglobin 29.3, Mean Corpuscular Hemoglobin Concent 32.8, Red Cell Distribution Width 13.8, Neutrophils (%) (Auto) 82.6 H, Lymphocytes (%) (Auto) 3.6 L, Monocytes (%) (Auto) 13.0 H, Eosinophils (%) (Auto) 0.0, Basophils (%) (Auto) 0.0, Neutrophils # (Auto) 5.2, Lymphocytes # (Auto) 0.2 L, Monocytes # (Auto) 0.8, Eosinophils # (Auto) 0.0, Basophils # (Auto) 0.0 Microbiology Microbiology 05/25/19 Blood Culture - Preliminary, Resulted No Growth after 48 hours. All Specime... 05/25/19 Blood Culture - Preliminary, Resulted No Growth after 48 hours. All Specime... 05/25/19 Gram Stain - Final, Complete 05/25/19 Sputum Culture - Final, Complete Pseudomonas Aeruginosa JONNA GOLD MD May 28, 2019 10:29
[2019-05-28] MEDS: NYSTATIN 500,000 U/5 ML SUSP UDC SS SCH ×4 (11:35→20:19)
[2019-05-28] MEDS ORDERED: LEVALBUTEROL 1.25 MG/0.5 ML CONCENTRATE NEB INH PRN (17:00)
--- NOTE | 2019-05-28 17:01 | CR ---
DATE OF CONSULTATION: 05/27/2019 CHIEF COMPLAINT: He has expressed suicidal thoughts. SUBJECTIVE: He is 83 years old. He is . Has a few children in the area. Says they see him. He lives on his own, and from what I understand, in an apartment. Has been there 10 years. Says has a home health aide 5 days a week or so. I have been asked by the hospitalist, Dr. Castro, as patient has expressed suicidal thoughts. In fact, had asked for a mental health evaluation when he came in and while here. He also has suggested that he feels he is "going crazy" the last few weeks. He apparently has a history of emotional difficulties, details known, but says has had at least one inpatient hospitalization several years ago at [facility]. Says attended the outpatient clinic there as well. This was many years ago. Currently not any formal care. Has several medical problems. Among the most prominent is chronic obstructive pulmonary disease (COPD) and is on oxygen. Has atrial fibrillation, hypertension, diabetes mellitus, enlargement of the prostate. He was brought into the emergency room by his son. He had, in fact, informed him that he needed a mental health evaluation. Upon examination in the emergency room was found to be quite hypoxic. Was placed on nasal cannula, 2 liters oxygen. Improved breathing as well as some mentation. Has been admitted. Is being stabilized. Says does not think that he can continue being in his apartment. Has been there for 10 years. Says has increasingly felt depressed about it, over the last few weeks at least, and that he has had thoughts of killing himself. He does not indicate any paraarticular plans. Is somewhat vague on this. Says did not come close to taking his life, either. His mobility is curtailed increasingly says he relies on Meals on Wheels and on a [id number], apparently, to take him places. Says generally tends to stay at home, however. Says the thought of returning to the apartment disturbs him as well but is able to move within the apartment but, by the sounds of it, barely. Also says has seen images of people not nt there. For example, cowboys. Can hear them as well, for example, this afternoon when the television was off. He pointed this out to the sitter. Asked him if he had seen them. Says he has had these experiences only over the last few weeks. He thinks they have worsened as his condition, particularly his breathing, has gone down, though he says he cannot be completely sure about it. Says those visions do disturb him. He does not think that he has experienced them in the past other than off and on in these last 5 weeks or so. PAST PSYCHIATRIC HISTORY: As indicated above, has had at least one hospitalization several years ago at [facility]. Was seen in the outpatient clinic there as well. FAMILY PSYCHIATRIC HISTORY: Unknown. MEDICAL HISTORY: As indicated above. Several medical problems, including currently chronic hypoxic respiratory failure, COPD, atrial fibrillation. Is on digoxin and Xarelto. Hypertension, diabetes. MEDICATIONS: Please see the extensive list, none of which includes a antidepressant or other psychotropics as far as I am aware. SUBSTANCE ABUSE: Says used to drink alcohol several years ago and suggests that there were times he drank heavily. Says has not had any for many years. 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 Says has family around him, and they visit. He lost his . He is not quite sure how long ago but thinks it may have been about 15 years ago. MENTAL STATUS EXAMINATION: He is in hospital clothes. He is cooperative. Has a nasal cannula. He is sitting up in bed, mostly lying essentially. No agitation. No psychomotor retardation. Somewhat [id number]. Is coherent. No abnormal movements are noted as such. Affect is restricted but reactive. Has vague suicidal thoughts. No firm plans. NO homicidal ideas or intents. Currently no evidence of any psychosis, in that he does not appear to be internally preoccupied. He is able to mainly shift attention adequately. There is no fluctuation of consciousness noted. He is alert. He is oriented to place and person, not fully to time. He knew it was May, toward the end of it, and the year. Knew the day of the week. Could spell the word "house" forward but not backward. Could do 3-digit span forward, not backward. Could recall 2/3 objects after 5 minutes with prompting. Intellect appeared to be average. Judgment is fair, as is insight. VITAL SIGNS: Blood pressure 123/70, pulse 110, temperature 98.4. INVESTIGATIONS: Comprehensive metabolic profile shows hyponatremia. Sodium is 127. Creatinine is 0.49, calcium 8.6, chloride 81. Complete blood count essentially within normal limits except for hemoglobin at 11, hematocrit 33.2, white cell count at 9.3. ASSESSMENT: 1. Other specified depressive disorder. 2. Mild neurocognitive disorder (delirium). Several medical difficulties, currently hypoxia secondary to chronic hypoxic respiratory failure. Being in his apartment. Increasing limitations. He is depressed the last few weeks. Has a history of clinically significant depression but details unknown. Currently he is quite stressed about being in his apartment. In fact, does not want to return there. Says he feel she cannot manage there. Has had suicidal thoughts, though he has been vague on plans. None that are form. Has not had suicidal thoughts today, nor mostly since admission. Again, vague on plans. Has had visual and auditory hallucinations more recently, the past few weeks, and these may possibly be manifestations of delirium. He is at risk for that given his age, various medical difficulties, the hypoxia, and respiratory compromise. RECOMMENDATIONS: Optimize medical care. This may help improve his general wellbeing as well as minimize the perceptual disturbances secondary to delirium. Consider mirtazapine (Remeron) at 8.5 mg at night to help with his mood. Suggest Haldol at 0.25 mg at night for the next week or so to help with the illusions and hallucinations, and then taper it off. At this point, does not require inpatient psychiatric hospitalization. Given his circumstances, I would not suggest that he return to his apartment, and a supervised living facility would be more useful. He wishes for that as well. Thank you for the consult. If any questions, please call. The assessment took 30 minutes.
[2019-05-28 17:11] LABS: ABG BASE EXCESS 11.6 (-2.0-2.0); ABG HCO3 40.1 MEQ/L (22.0-26.0); ABG O2 SATURATION 92.2 % (95.0-99.0); ABG PARTIAL PRESSURE CO2 74.5 mmHg (35.0-45.0); ABG STANDARD HCO3 35.2 MEQ/L (22.0-26.0); ABG TOTAL CO2 42.4 MEQ/L (23.0-31.0); ABG pH (ARTERIAL) 7.349 UNITS (7.350-7.450)
[2019-05-28] MEDS ORDERED: ISOVUE-370 76% 100ML VIAL (Q9967) As Ordered ONE (17:24)
[2019-05-28] MEDS ORDERED: TOLVAPTAN 7.5 MG HALF-TAB PO ONE (18:00)
[2019-05-28] MEDS ORDERED: methylPREDNISolone INJ 125 MG/2 ML VIAL (J2930) IV SCH (18:00)
[2019-05-28] MEDS ORDERED: PIPERACILLIN/TAZOBACTAM SOD 2.25 GM in D5W MINI-BAG PLUS 50 ML IV SCH (18:00)
[2019-05-28 18:03] LABS: NT-PRO BNP 1765 PG/ML (<450)
--- NOTE | 2019-05-28 18:20 | REPVR ---
EXAM: CT Angiography Chest With Contrast EXAM DATE/TIME: 05/28/2019 5:52 PM CLINICAL HISTORY: 83 years old, male; Chest pain; Additional info: Hypoxia TECHNIQUE: Imaging protocol: Axial computed tomographic angiography images of the chest with intravenous contrast using CT angiography protocol. Coronal and sagittal reformatted images were created and reviewed. 3D rendering: MIP reconstructed images were created and reviewed. Radiation optimization: All CT scans at this facility use at least one of these dose optimization techniques: automated exposure control; mA and/or kV adjustment per patient size (includes targeted exams where dose is matched to clinical indication); or iterative reconstruction. Contrast material: ISO 370; Contrast volume: 75 ml; Contrast route: IV; COMPARISON: CR PORTABLE CHEST X-RAY 05/27/2019 7:53 AM FINDINGS: Pulmonary arteries: Normal. No pulmonary emboli. Aorta: Moderate/severe atherosclerosis of the thoracic aorta without thoracic aortic aneurysm or dissection. Limited scans the upper abdomen demonstrates an infrarenal abdominal aortic aneurysm measuring 6.6 cm AP by 6.4 cm transverse. There is intraluminal thrombus and partial opacification of the aneurysm. The aneurysm is incompletely imaged on this examination. No retroperitoneal hematoma is identified. Lungs: Diffuse severe bilateral paraseptal and centrilobular pulmonary emphysema. A spiculated mass measuring 22 mm long by 17 mm transverse by 13 mm AP located in the peripheral aspect of the superior segment of the left lower lobe is consistent with pulmonary neoplasm until proven otherwise (axial images 49 through 56 of series 402). There are 2 nodules measuring 5 mm each within the right lower lobe on images 123 and 129 of series 401 and a 5 mm nodule within the right middle lobe on image 136 of 401. No pulmonary consolidation. Pleural space: There are small bilateral pleural effusions, larger on the left. Heart: Mild atherosclerosis of the coronary arteries. No cardiomegaly or pericardial effusion. Lymph nodes: Unremarkable. No enlarged lymph nodes. Bones/joints: There is degenerative spondylosis and accentuated kyphosis of the thoracic spine. No fracture or suspicious bone lesion is identified. 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 Soft tissues: Unremarkable. IMPRESSION: 1. No pulmonary arterial embolism. 2. Severe pulmonary emphysema. 3. Left lower lobe spiculated nodule measuring 22 mm x 17 mm x 13 mm, consistent with pulmonary neoplasm until proven otherwise. Highly suspicious nodule. Consider PET/CT, or tissue sampling.(MacMahon, et al., Fleischner Society, 2017). 4. Small right lung pulmonary nodules. 5. Large infrarenal abdominal aortic aneurysm, measuring 6.6 cm, incompletely imaged. Electronically signed by: Momo Bueno On 05/28/2019 18:19:59 PM
[2019-05-28 18:52] LABS: NT-PRO BNP 1764 PG/ML (<450)
[2019-05-28] MEDS ORDERED: FUROSEMIDE 100 MG/10 ML VIAL (J1940) IV ONE (19:00)
[2019-05-28] MEDS: methylPREDNISolone INJ 40 MG/1 ML VIAL (J2920) IV SCH (19:03)
[2019-05-28 19:09] LABS: BLOOD UREA NITROGEN 18 MG/DL (7-18); CALCIUM LEVEL 8.4 MG/DL (8.8-10.2); CARBON DIOXIDE LEVEL 41 MEQ/L (21-32); CHLORIDE LEVEL 81 MEQ/L (98-107); CREATININE FOR GFR 0.44 MG/DL (0.70-1.30); GLOMERULAR FILTRATION RATE > 60.0 (>35); GLUCOSE, FASTING 118 MG/DL (70-100); POTASSIUM SERUM 4.1 MEQ/L (3.5-5.1); SODIUM LEVEL 125 MEQ/L (136-145)
[2019-05-28] MEDS: LEVALBUTEROL 1.25 MG/0.5 ML CONCENTRATE NEB INH SCH (19:39)
[2019-05-28] MEDS: PIPERACILLIN/TAZOBACTAM SOD 4.5 GM in D5W MINI-BAG PLUS 50 ML IV SCH (20:18)
[2019-05-28] MEDS: MIRTAZAPINE 7.5MG PER 1/2 TABLET PO SCH (20:19)
[2019-05-28] MEDS: LATANOPROST 0.005% OPHTH SOLN 2.5 ML OU SCH (20:19)
[2019-05-28] MEDS ORDERED: HALOPERIDOL 0.25MG PER 1/2 TABLET PO SCH (21:00)
[2019-05-28 21:59] LABS: DIGOXIN LEVEL 0.5 NG/ML (0.5-2.0)
[2019-05-28 23:05] LABS: POTASSIUM RANDOM URINE 22.6 MEQ/L
--- NOTE | 2019-05-28 23:10 | CR ---
DATE OF CONSULTATION: 05/28/2019 HISTORY OF PRESENT ILLNESS: The patient is an 83-year-old male with a past medical history of chronic obstructive pulmonary disease (COPD) with chronic hypoxemic respiratory failure on nasal cannula oxygen supplementation, atrial fibrillation - on anticoagulation, hypertension, diabetes, hyperlipidemia, BPH who presented with shortness of breath. The patient was noted to be hypoxemic on arrival, was placed on nasal cannula oxygen with improvement in his oxygenation as well as in his mental status. The patient's son had reportedly reported some confusion and altered mental status. The patient reports he has had worsening shortness of breath over the past few weeks as well as a cough productive of yellow sputum. He denies any chest pain. Denies any wheezing, has not reported any fevers or chills. As per his initial admission note, the patient's family had reported a history of weight loss of approximately 20 pounds in the past 1-2 months. He was admitted to the hospital and was started on medications for COPD exacerbation with steroids and nebulizer treatments. The patient was also started on antibiotics for possible pneumonia. The patient had an arterial blood gas (ABG) done on admission which showed evidence of chronic hypercarbic respiratory failure for which he was compensating for. Earlier today the patient was noted to have increasing confusion. He was also having episodes of delirium and yesterday was evaluated by psychiatry for his episodes of delirium and his hallucinations. He, of note, has been hyponatremic on admission, which has been worsening. Earlier in the day he was given a dose of tolvaptan, and he had a repeat ABG done and pulmonary was consulted after the ABG for initiation of possible bilevel positive airway pressure (BiPAP) . PAST MEDICAL AND SURGICAL HISTORY: COPD. Chronic hypoxemic respiratory failure, on nasal cannula oxygen. Atrial fibrillation, on anticoagulation. Hypertension. Diabetes. Hyperlipidemia. BPH. Cataract surgery. Left shoulder surgery. FAMILY HISTORY: Mother with a history of gallstones. Father with a history of emphysema. SOCIAL HISTORY: Former smoker, quit in 2003, lives alone, is a retired construction ironworker helper. HOME MEDICATIONS: - brimonidine - brinzolamide - Symbicort - Digoxin - Singulair - Xarelto - rosuvastatin - tamsulosin - Spiriva - Travatan - albuterol as needed ALLERGIES: No known drug allergies. PHYSICAL EXAMINATION: Temperature 97.6, heart rate 87, respiratory rate 25, blood pressure 128/64, oxygen saturation (O2 sat) 86% on 3 liters nasal cannula. Intake 1.3 liters, output 645 mL. General: The patient is a frail elderly male, is lying in bed with some respiratory distress. He is awake and alert and answering questions appropriately with some occasional confusion. HEENT: Normocephalic, atraumatic. Surgical pupils noted. Mucous membranes are moist. There are white plaque lesions on the tongue. Neck is supple. Trachea is midline. No palpable adenopathy. Cardiovascular: Tachycardiac, irregularly irregular. Normal S1, S2, distant heart sounds. Unable to appreciate murmurs. Pulmonary: Decreased breath sounds bilaterally with occasional coarse wheezing and rhonchi and some crackles with diminished breath sounds at the bases. Chest appears hyperinflated. There is some accessory muscles for respiration. Abdomen is soft, nontender, nondistended. Lower extremities: There is no lower extremity edema noted bilaterally. There are some ecchymosis noted in his extremities. Neurologic: The patient is alert and oriented times two, sometimes three. No focal deficits. LABORATORY DATA: WBC 6.3, hemoglobin 11.0, platelets 200. Chemistry: Sodium is 125, potassium is 4.1, chloride 81, bicarbonate 41, BUN 18, creatinine 0.44, glucose is 118, calcium is 8.4, magnesium 1.9, BNP 1764. IMAGING STUDIES: CT angiogram showed no evidence of pulmonary embolism. There is severe paraseptal and centrilobular emphysematous changes noted bilaterally. There is bilateral pleural effusions, left larger than the right. There is a spiculated nodule in the left lower lobe measuring 2.2 centimeters. There are also two subcentimeter nodules in the right lower lobe, and a nodule in the right middle lobe. There is no significant adenopathy. There is some atherosclerosis of coronary arteries, and there is an infrarenal abdominal aortic aneurysm measuring 6.6 cm incompletely imaged on this exam. ASSESSMENT/PLAN: Mr. Petty is an 83-year-old male with a past medical history of COPD with chronic hypoxemic and chronic hypercarbic respiratory failure, atrial fibrillation, hypertension, diabetes, BPH who presented with increased shortness of breath for the past week. The patient was initially started on Solu-Medrol and nebulizers for an acute COPD exacerbation as well as antibiotics for possible pneumonia. The patient had an ABG on admission, which showed compensated chronic respiratory acidosis. He was also noted to have some pitting edema on his initial history and physical, as well as hyponatremia. He was given one dose of Lasix on admission but has not been significantly negative. Today he was noted to have episodes of confusion. He had been seen by psychiatry yesterday for some delirium as well. He had a repeat ABG done, which shows an unchanged chronic hypercarbic respiratory failure. He continues to be compensated on his ABG. Therefore, I suspect that his episodes of delirium are not related to his hypercarbia. However, he has been having worsening hyponatremia and suspect some of his confusion is due to metabolic encephalopathy from his worsening hyponatremia. A repeat sodium was ordered which did show worsening of his sodium levels. The patient was also suspected to have evidence of pulmonary edema, and on his CT chest, he was found to have bilateral pleural effusions. Therefore, suspect that he may have a component of hypotonic hyponatremia from heart failure His urine lytes did show increased urine osmolarity, which may suggest a component of syndrome of inappropriate secretion of antidiuretic hormone (SIADH) as well contributing. - Will place a Montgomery catheter for accurate measurement of ins and outs. - He is status post a dose of tolvaptan. Will start him on Lasix IV for diuresis and continue to closely monitor his sodium levels. - Will repeat his urine electrolytes and urine osmolarities. - Will discontinue Haldol given his chronic hypercarbic respiratory failure as would not want to give him sedating medications. The patient does appear to have upper airway secretions as well as rhonchorous breath sounds on examination and suspect that he does have some difficulty with clearing secretions. Therefore, if the patient were to have worsening respiratory status and worsening hypercarbia, he would not be a good candidate for BiPAP, but would likely need intubation. He also had reported vomiting the day prior, which would also be a contraindication for BiPAP. - Would continue him with oxygen supplementation, was changed from nasal cannula to a Ventimask as he appears to be breathing through his mouth mostly. Would titrate the Ventimask for a goal O2 sat of 88-92%. - Would repeat an ABG in the morning. - Can continue with the Solu-Medrol, would change from 60 mg IV every 6 hours to 40 mg IV every 8 hours and continue with levalbuterol and Spiriva as well as Symbicort. - The patient was started on antibiotics for possible pneumonia, which was broadened to Zosyn. His sputum culture did grow Pseudomonas, which is quick sensitive. The patient did not have any focal opacities on his imaging. He did have a spiculated nodule, which was more suspicious for possible malignancy given his age and smoking history. Therefore, would check a procalcitonin to help determine de-escalation of antibiotics. The patient may be colonized with Pseudomonas given his COPD. Deep vein thrombosis (DVT) prophylaxis. GOALS OF CARE: Discussed with the patient about his goals of care. The patient is currently FULL CODE, although he does have some confusion. Will followup with the patient's son and daughter about his goals of care, as well as healthcare proxy. Total critical care time spent not including any procedures: Approximately 1 hour and 55 minutes. HEDYD
[2019-05-28] MEDS ORDERED: METOPROLOL 5 MG/5 ML VIAL As Ordered ONE (23:19)
[2019-05-28 23:24] LABS: ABG BASE EXCESS 8.1 (-2.0-2.0); ABG O2 SATURATION 99.5 % (95.0-99.0); ABG PARTIAL PRESSURE O2 212.9 mmHg (75.0-100.0); ABG pH (ARTERIAL) 7.358 UNITS (7.350-7.450)
[2019-05-28] MEDS ORDERED: METOPROLOL 5 MG/5 ML VIAL IV STA (23:24)
[2019-05-28 23:28] LABS: ABG PARTIAL PRESSURE CO2 65.4 mmHg (35.0-45.0)
[2019-05-29] VITALS (78 sets, daily range): BP systolic 67–146; BP diastolic 39–96; O2SAT 99–100
[2019-05-29] MEDS: PIPERACILLIN/TAZOBACTAM SOD 4.5 GM in D5W MINI-BAG PLUS 50 ML IV SCH ×4 (00:11→18:03)
[2019-05-29] MEDS: methylPREDNISolone INJ 40 MG/1 ML VIAL (J2920) IV SCH ×3 (00:11→16:02)
[2019-05-29 00:27] LABS: BLOOD UREA NITROGEN 19 MG/DL (7-18); CARBON DIOXIDE LEVEL 33 MEQ/L (21-32); CHLORIDE LEVEL 83 MEQ/L (98-107); CREATININE FOR GFR 0.58 MG/DL (0.70-1.30); GLOMERULAR FILTRATION RATE > 60.0 (>35); GLUCOSE, FASTING 165 MG/DL (70-100); POTASSIUM SERUM 3.8 MEQ/L (3.5-5.1); SODIUM LEVEL 124 MEQ/L (136-145)
[2019-05-29] MEDS ORDERED: ETOMIDATE INJ 20MG/10ML VIAL IV ONE (00:30)
[2019-05-29] MEDS ORDERED: SUCCINYLCHOLINE INJ 200 MG/10 ML VIAL (J0330) IV ONE (00:30)
[2019-05-29] MEDS ORDERED: PROPOFOL 1,000 MG/100 ML VIAL As Ordered ONE (00:41)
[2019-05-29] MEDS: LEVALBUTEROL 1.25 MG/0.5 ML CONCENTRATE NEB INH SCH ×7 (01:02→22:59)
[2019-05-29] MEDS: PROPOFOL 1,000 MG in APPROPRIATE DILUENT 1 EA IV SCH ×2 (01:24→17:05)
[2019-05-29] MEDS ORDERED: NS 500 ML IV ONE (01:30)
[2019-05-29] MEDS ORDERED: LIDOCAINE 1% MDV 20ML VIAL As Ordered ONE (01:39)
[2019-05-29] MEDS ORDERED: NOREPINEPHRINE 4 MG/4 ML AMP As Ordered ONE (01:50)
[2019-05-29] MEDS: NOREPINEPHRINE BITARTRATE 16 MG in D5W 484 ML IV SCH ×2 (02:00→13:50)
[2019-05-29 05:37] LABS: ABG BASE EXCESS 13.3 (-2.0-2.0); ABG HCO3 36.7 MEQ/L (22.0-26.0); ABG O2 SATURATION 98.1 % (95.0-99.0); ABG PARTIAL PRESSURE CO2 41.4 mmHg (35.0-45.0); ABG PARTIAL PRESSURE O2 96.6 mmHg (75.0-100.0); ABG STANDARD HCO3 37.1 MEQ/L (22.0-26.0); ABG TOTAL CO2 37.9 MEQ/L (23.0-31.0); ABG pH (ARTERIAL) 7.565 UNITS (7.350-7.450)
[2019-05-29 05:50] LABS: HEMATOCRIT 33.4 % (42.0-52.0); HEMOGLOBIN 11.2 g/dl (13.5-17.5); LYMPH % 1.9 % (24.0-44.0); MEAN CORPUSCULAR HGB CONC 33.5 g/dl (32.0-36.5); MEAN CORPUSCULAR VOLUME 86.5 fl (80.0-96.0); MONO # 1.1 10^3/uL (0.0-0.8); NEUTROPHILS # 8.5 10^3/uL (1.8-7.7); NEUTROPHILS % 86.6 % (36.0-66.0); PLATELET COUNT, AUTOMATED 248 10^3/uL (150-450); RED BLOOD COUNT 3.86 10^6/uL (4.30-6.10); WHITE BLOOD COUNT 9.8 10^3/uL (4.0-10.0)
[2019-05-29 05:51] LABS: LYMPH # 0.2 10^3/uL (1.5-4.5)
[2019-05-29] MEDS: PANTOPRAZOLE 40MG INJ (PROTONIX) (C9113) IV SCH (06:02)
[2019-05-29 06:10] LABS: BLOOD UREA NITROGEN 20 MG/DL (7-18); CALCIUM LEVEL 8.5 MG/DL (8.8-10.2); CARBON DIOXIDE LEVEL 39 MEQ/L (21-32); CHLORIDE LEVEL 87 MEQ/L (98-107); CREATININE FOR GFR 0.71 MG/DL (0.70-1.30); GLOMERULAR FILTRATION RATE > 60.0 (>35); GLUCOSE, FASTING 163 MG/DL (70-100); POTASSIUM SERUM 3.7 MEQ/L (3.5-5.1); SODIUM LEVEL 135 MEQ/L (136-145)
--- NOTE | 2019-05-29 06:37 | RO ---
DATE OF PROCEDURE: 05/29/2019 PROCEDURE: Endotracheal intubation. INDICATION: Acute on chronic hypoxemic respiratory failure. ATTENDING PHYSICIAN: Dr. Shaina Cagle CONSENT: Verbal consent was obtained from the patient earlier in the day and obtained from the patient's son prior to the procedure. Indication, risks and benefits were explained at length. PROCEDURE SUMMARY: A time-out was performed prior to intubation. The patient was placed on a senior manager asset protection including continuous pulse oximetry. Rapid sequence intubation was conducted. The patient received 50 mg of etomidate for induction and 30 mg of succinylcholine for paralysis. Using a MAC laryngoscope and a size 8 endotracheal tube with stylet, the patient was intubated on the first pass attempt. The stylet was removed and the cuff balloon was inflated. Appropriate endotracheal tube position was confirmed by direct visualization of vocal cord passage, fogging of the tube, CO2 colorimetric indicator and symmetric breath sounds. The tube was secured at 24 cm of the lips. Post intubation chest x-ray is pending at this time.
--- NOTE | 2019-05-29 06:51 | REP ---
Portable chest, 09:50 p.m., single AP view with the patient upright: Comparison is 05/27/2019. The diffuse interstitial infiltrate throughout the left lung is minimally improved. The right lung remains clear. There is hyperinflation, unchanged. Cardiac size is normal. The vamsi, mediastinum and skeletal structures are unchanged. Impression: Minimal improvement in the left lung interstitial infiltrate. Electronically Signed by Parminder Rodriguez MD 05/29/2019 06:42 A
--- NOTE | 2019-05-29 06:59 | RO ---
DATE OF PROCEDURE: 05/29/2019 INDICATION: Vasopressor administration. PREPROCEDURE DIAGNOSIS: Hypotension. POSTPROCEDURE DIAGNOSIS: Hypotension. ATTENDING PHYSICIAN: Dr. Cagle CONSENT: Consent was obtained from the patient's son prior to the procedure. Verbal consent was obtained from the patient's son prior to the procedure. Indication, risks and benefits were explained at length. PROCEDURE SUMMARY: A central line insertion practices form was completed by an independent observer. A time out was performed prior to the procedure. Full sterile technique was maintained throughout the procedure including surgical cap, mask with protective eyewear, full gown and sterile gloves. The patient was placed in Trendelenburg position, the left neck region was prepped using chlorhexidine scrub and draped in a sterile fashion using fenestrated drape and sterile probe cover employed. The left internal jugular vein was identified using ultrasound. Anesthesia was achieved over the vein using 1% lidocaine. Using real time out of plane guidance the introducer needle was inserted into the left internal jugular vein under direct ultrasound visualization. Venous blood was drawn. The syringe was removed and the Guidewire was attempted to be advanced up through the introducer needle; however, was meeting resistance. The wire was removed and blood was aspirated again from the introducer needle. However with Guidewire advancement through the needle there continued to be resistance. The introducer needle was removed and pressure was applied to the needle site with adequate hemostasis. There was no hematoma afterwards. The patient was contracted and unable to correctly position his right internal jugular vein. Therefore femoral access was used for his central line insertion. The right femoral groin region was prepped using chlorhexidine scrub and draped in a sterile fashion using a fenestrated drape and a sterile probe cover was employed. Full sterile technique was maintained throughout this procedure. The right femoral vein was identified using the ultrasound. Anesthesia was achieved over the vein using 1% lidocaine. Using real time out of plane guidance, the introducer needle was inserted into the right femoral vein under direct ultrasound visualization. Venous blood was withdrawn. The syringe was removed and a Guidewire was advanced into the introducer needle. The Guidewire was visualized in the femoral vein by ultrasound. A small incision was made at the skin surface with a scalpel and the introducer needle was exchanged over the Guidewire for a dilator. After appropriate dilation was obtained the dilator was exchanged over the wire for a triple lumen central venous catheter. The wire was removed and the catheter was sutured in place. A sterile chlorhexidine impregnated dressing was placed over the catheter at the insertion site. The patient tolerated the procedure well without any hemodynamic compromise. At time of procedure completion, all ports aspirated and flushed properly.
--- NOTE | 2019-05-29 07:01 | REP ---
Portable chest, 05/29/2019, 12:57 a.m., single AP view with the patient upright, post intubation: Comparison is 05/28/2019. There is an endotracheal tube with the tip terminating in the trachea in satisfactory location at the level of the aortic arch. The interstitial infiltrate throughout the left lung continues to improve. Right lung remains clear. Lung payan are again hyperinflated, unchanged. Cardiac size is normal. The vamsi, mediastinum and skeletal structures are unchanged. Impression: The endotracheal tube tip is in satisfactory location. The left lung interstitial infiltrate continues to improve. Hyperinflation, unchanged. Electronically Signed by Parminder Rodriguez MD 05/29/2019 06:52 A
[2019-05-29] MEDS: SYMBICORT 160/4.5MCG INHALER 6GM INH SCH ×2 (07:33→19:59)
[2019-05-29] MEDS: TIOTROPIUM INHALER/CAPSULE (SPIRIVA) INH SCH (07:33)
--- NOTE | 2019-05-29 07:50 | IPNPDOC ---
Date Seen The patient was seen on 05/29/19. Progress Note SUBJECTIVE: pt was emergently transferred to ICU due to worsening respiratory distress, confusion, and hypotension after given iv lasix 60mg, and was subsequently intubated. Overnight, pt required vasopressor therapy on 8mcg/min levophed, iv zosyn, and 40%FIo2 vent to stabilize. CT chest: LLLspiculated nodule consistent with pulmonary malignancy, severe emphysema, large infrarenal AAA 6.6 cm. Sodium 125 s/p tolvaptan with sodium 135 this am. OBJECTIVE: PHYSICAL EXAMINATION: - Vitals: pls see below - General: intubated with central line. sedated, but winces to pain - HEENT: no JVD dry mucus membranes. ET tube - CVS: +S1S2 RRR - Lungs: Fair air entry bilaterally, left lung rhonchi, Mild wheezing - Abdomen: Soft, Non-distended, Non-tender scaphoid (+) bowel sounds. no rebound or guarding - Extremities: No calf tenderness no pitting edema - Neuro: No focal motor or sensory deficit - Skin:multiple ecchymotic areas on b/l upper and lower extremities LABORATORY DATA, IMAGING STUDIES, MICROBIOLOGY: PLS SEE BELOW EXAM: CT Angiography Chest With Contrast EXAM DATE/TIME: 05/28/2019 5:52 PM CLINICAL HISTORY: 83 years old, male; Chest pain; Additional info: Hypoxia TECHNIQUE: Imaging protocol: Axial computed tomographic angiography images of the chest with intravenous contrast using CT angiography protocol. Coronal and sagittal reformatted images were created and reviewed. 3D rendering: MIP reconstructed images were created and reviewed. Radiation optimization: All CT scans at this facility use at least one of these dose optimization techniques: automated exposure control; mA and/or kV adjustment per patient size (includes targeted exams where dose is matched to clinical indication); or iterative reconstruction. Contrast material: ISO 370; Contrast volume: 75 ml; Contrast route: IV; COMPARISON: CR PORTABLE CHEST X-RAY 05/27/2019 7:53 AM FINDINGS: Pulmonary arteries: Normal. No pulmonary emboli. Aorta: Moderate/severe atherosclerosis of the thoracic aorta without thoracic aortic aneurysm or dissection. Limited scans the upper abdomen demonstrates an infrarenal abdominal aortic aneurysm measuring 6.6 cm AP by 6.4 cm transverse. There is intraluminal thrombus and partial opacification of the aneurysm. The aneurysm is incompletely imaged on this examination. No retroperitoneal hematoma is identified. Lungs: Diffuse severe bilateral paraseptal and centrilobular pulmonary emphysema. A spiculated mass measuring 22 mm long by 17 mm transverse by 13 mm AP located in the peripheral aspect of the superior segment of the left lower lobe is consistent with pulmonary neoplasm until proven otherwise (axial images 49 through 56 of series 402). There are 2 nodules measuring 5 mm each within the right lower lobe on images 123 and 129 of series 401 and a 5 mm nodule within the right middle lobe on image 136 of 401. No pulmonary consolidation. Pleural space: There are small bilateral pleural effusions, larger on the left. Heart: Mild atherosclerosis of the coronary arteries. No cardiomegaly or pericardial effusion. Lymph nodes: Unremarkable. No enlarged lymph nodes. Bones/joints: There is degenerative spondylosis and accentuated kyphosis of the thoracic spine. No fracture or suspicious bone lesion is identified. 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 Soft tissues: Unremarkable. IMPRESSION: 1. No pulmonary arterial embolism. 2. Severe pulmonary emphysema. 3. Left lower lobe spiculated nodule measuring 22 mm x 17 mm x 13 mm, consistent with pulmonary neoplasm until proven otherwise. Highly suspicious nodule. Consider PET/CT, or tissue sampling.(Tigist et al., Fleischner Society, 2017). 4. Small right lung pulmonary nodules. 5. Large infrarenal abdominal aortic aneurysm, measuring 6.6 cm, incompletely imaged. Electronically signed by: Momo Bueno On 05/28/2019 18:19:59 PM ASSESSMENT AND PLAN: Patient is an 83-year-old male with a PMHx of Chronic hypoxic respiratory failure, COPD on 2L O2 by Venessa BREWER (on Digoxin / Xarelto), HTN, DM2, DLP and BPH who presented to the emergency room visit shortness of breath.Patient was brought into the ER by his son after he reported that he needed a mental health evaluation because he was feeling crazy. Upon arrival to emergency room, patient was found to be hypoxic. Patient was placed on nasal cannula oxygen and brought up to 2 L. Patients breathing had improved and mentation had improved.Patient has reported that hes been experiencing shortness of breath that has been progressive over 2 weeks. Patient also reports that hes been expressing a productive cough with yellowish sputum. Denied any blood. Patient denies any chest pain or palpitations. Patient has been compliant with his inhaled therapy, however he is unable to recall all of his inhaled therapy. Does report that he uses Albuterol and Spiriva.Patient denies any nausea, vomiting, abdominal pain, diarrhea or discomfort with urination. Patient does report constipation. . He denies any fevers in the last 2 weeks, he does report chills. Patients family has also reported that he has experienced a weight loss of approximately 20 pounds over 1-2 months. Patient has reported a poor appetite. Patient currently lives alone. Patient reports that he may require further assistance moving forward and family is suggesting group home placement. acute hypoxic on chronic respiratory failure - requiring intubation and mechanical ventilation 05/28/19 managed by Pulmonary, Dr. Cagle - due to COPD exacerbation with pseudomonas colonization - Patient has reported shortness of breath associated with productive cough with yellow sputum on admission - Has reported subjective chills prior to admission - CXR 05/25: Diffuse interstitial infiltrate in left lung -s/p levaquin 05/25-05/28/19 - s/p IV Solu-Medrol lost iv access, changed to po prednisone 05/28/19, changed back to iv solumedrol 05/28/19 once iv access gained - nebs scheduled. -IV zosyn started 05/28/19 Left lung community acquired pneumonia -s/p levaquin 05/25-05/28 -sputum cx: pseudomonas pansensitive -zosyn renally dosed 05/28/19 Acute Encephalopathy -in the setting of Pseudomonas pneumonia, hypoxia, copd exacerbation, and hyponatremia -peripheral iv line placed after it was lost on 05/28/19 -changed to iv solumedrol due to worsening hypoxia - ct chest: spiculated nodule -s/p tolvaptan and serial sodium monitoring -change to iv zosyn and dc po prednisone due to worsening hypoxia. Hyponatremia -s/p lasix 60mg iv 05/28/19 -s/p tolvaptan 05/28/19 A. fib - c/w rate / rhythm control with Digoxin - c/w full anticoagulation with Xarelto HTN -requires vasopressor therapy due to low bp. DM2 - Patient is reported that he has a history of diabetes but is currently not on any medications - reviewd A1c5.7 DLP - hold statin while intubated BPH - hold Tamsulosin while intubated code status: full code VS, I&O, 24H, Fishbone Vital Signs/I&O Vital Signs Date Time Temp Pulse Resp B/P (MAP) Pulse Ox O2 Delivery O2 Flow Rate FiO2 05/29/19 06:15 20 91/54 98 Ventilator 40 05/29/19 06:00 93 05/29/19 04:00 98.5 05/29/19 00:00 15.0 I&O- Last 24 Hours up to 6 AM 05/29/19 06:00 Intake Total 1183.8 ml Output Total 3100 ml Balance -1916.2 ml Laboratory Data 24H LABS Laboratory Tests 2 05/28/19 17:00: Blood Gas Bicarbonate Standard 35.2H, Arterial Blood pH 7.349L, Arterial Blood Partial Pressure CO2 74.5*H, Arterial Blood Partial Pressure O2 72.0L, Arterial Blood Total CO2 42.4H, Arterial Blood HCO3 40.1H, Arterial Blood Base Excess 11.6H, Arterial Blood Oxygen Saturation 92.2L 05/28/19 18:14: Anion Gap 3L, Glomerular Filtration Rate > 60.0, Osmolality 270L, Blood Urea Nitrogen 18, Creatinine 0.44L, Sodium Level 125L, Potassium Level 4.1, Chloride Level 81L, Carbon Dioxide Level 41H, Calcium Level 8.4L, SN-Xuz-I-Type Natriuretic Peptide 1764H, Digoxin Level 0.5 05/28/19 22:30: Urine Random Osmolality 303L, Urine Random Sodium 68, Urine Random Potassium 22.6, Urine Random Chloride 85 05/28/19 23:19: Blood Gas Bicarbonate Standard 32.0H, Arterial Blood pH 7.358, Arterial Blood Partial Pressure CO2 65.4*H, Arterial Blood Partial Pressure O2 212.9H, Arterial Blood Total CO2 38.0H, Arterial Blood HCO3 36.0H, Arterial Blood Base Excess 8.1H, Arterial Blood Oxygen Saturation 99.5H 05/28/19 23:50: Anion Gap 8, Glomerular Filtration Rate > 60.0, Blood Urea Nitrogen 19H, Creatinine 0.58L, Sodium Level 124L, Potassium Level 3.8, Chloride Level 83L, Carbon Dioxide Level 33H, Calcium Level 8.0L 05/29/19 05:06: Anion Gap 9, Glomerular Filtration Rate > 60.0, Blood Urea Nitrogen 20H, Creatinine 0.71, Sodium Level 135#L, Potassium Level 3.7, Chloride Level 87L, Carbon Dioxide Level 39H, Calcium Level 8.5L, Immature Granulocyte % (Auto) 0.5, White Blood Count 9.8, Red Blood Count 3.86L, Hemoglobin 11.2L, Hematocrit 33.4L, Mean Corpuscular Volume 86.5, Mean Corpuscular Hemoglobin 29.0, Mean Corpuscular Hemoglobin Concent 33.5, Red Cell Distribution Width 13.4, Platelet Count 248, Neutrophils (%) (Auto) 86.6H, Lymphocytes (%) (Auto) 1.9L, Monocytes (%) (Auto) 11.0H, Eosinophils (%) (Auto) 0.0, Basophils (%) (Auto) 0.0, Neutrophils # (Auto) 8.5H, Lymphocytes # (Auto) 0.2L, Monocytes # (Auto) 1.1H, Eosinophils # (Auto) 0.0, Basophils # (Auto) 0.0, Nucleated Red Blood Cells % (auto) 0.0, Magnesium Level 2.0 05/29/19 05:25: Blood Gas Bicarbonate Standard 37.1H, Arterial Blood pH 7.565H, Arterial Blood Partial Pressure CO2 41.4, Arterial Blood Partial Pressure O2 96.6, Arterial Blood Total CO2 37.9H, Arterial Blood HCO3 36.7H, Arterial Blood Base Excess 13.3H, Arterial Blood Oxygen Saturation 98.1 CBC/BMP Laboratory Tests 05/28/19 18:14 Calcium Level 8.4 L 05/28/19 23:50 Calcium Level 8.0 L 05/29/19 05:06 Calcium Level 8.5 L, Red Blood Count 3.86 L, Mean Corpuscular Volume 86.5, Mean Corpuscular Hemoglobin 29.0, Mean Corpuscular Hemoglobin Concent 33.5, Red Cell Distribution Width 13.4, Neutrophils (%) (Auto) 86.6 H, Lymphocytes (%) (Auto) 1 .9 L, Monocytes (%) (Auto) 11.0 H, Eosinophils (%) (Auto) 0.0, Basophils (%) (Auto) 0.0, Neutrophils # (Auto) 8.5 H, Lymphocytes # (Auto) 0.2 L, Monocytes # (Auto) 1.1 H, Eosinophils # (Auto) 0.0, Basophils # (Auto) 0.0 [facility] 05/25/19 Blood Culture - Preliminary, Resulted No Growth after 72 hours. All specime... 05/25/19 Blood Culture - Preliminary, Resulted No Growth after 72 hours. All specime... 05/25/19 Gram Stain - Final, Complete 05/25/19 Sputum Culture - Final, Complete Pseudomonas Aeruginosa JONNA GOLD MD May 29, 2019 07:50
--- NOTE | 2019-05-29 07:51 | REP ---
Portable chest, 06:53 a.m., two AP views with the patient semi upright: Comparison is 05/28/2019. There is a nasogastric tube with the tip terminating beneath the left hemidiaphragm in satisfactory position. No endotracheal tube is identified. The left lung interstitial infiltrate continues to improve. Right lung is clear. Cardiac size is normal. Tiffany, mediastinum, skeletal structures are unchanged. Impression: Nasogastric tube tip is beneath the left hemidiaphragm. The left lung infiltrate continues to improve. Electronically Signed by Parminder Rodriguez MD 05/29/2019 07:43 A
[2019-05-29] MEDS: D5W 1,000 ML IV SCH (09:00)
[2019-05-29] MEDS: ROSUVASTATIN 10 MG TAB (CRESTOR) PO SCH (09:00)
[2019-05-29] MEDS ORDERED: FUROSEMIDE 100 MG/10 ML VIAL (J1940) IV SCH (09:00)
[2019-05-29] MEDS: DIGOXIN 0.125 MG TAB PO SCH (09:00)
[2019-05-29] MEDS: BRIMONIDINE 0.15% OPHTH SOLN 5 ML OU SCH ×2 (09:00→20:18)
[2019-05-29] MEDS: TAMSULOSIN 0.4 MG CAP PO SCH (09:00)
[2019-05-29] MEDS: MONTELUKAST 10 MG TAB PO SCH (09:47)
[2019-05-29] MEDS: NYSTATIN 500,000 U/5 ML SUSP UDC SS SCH ×4 (09:47→20:17)
[2019-05-29] MEDS: RIVAROXABAN 10 MG TAB (XARELTO) PO SCH (09:47)
[2019-05-29] MEDS: CHLORHEXIDINE GLUCONATE 0.12 % 15ML UDC (PERIDEX ORAL RINSE) MT SCH ×2 (09:48→20:17)
[2019-05-29 10:21] LABS: ABG BASE EXCESS 11.6 (-2.0-2.0); ABG HCO3 34.6 MEQ/L (22.0-26.0); ABG O2 SATURATION 95.9 % (95.0-99.0); ABG PARTIAL PRESSURE CO2 38.9 mmHg (35.0-45.0); ABG PARTIAL PRESSURE O2 74.4 mmHg (75.0-100.0); ABG STANDARD HCO3 35.3 MEQ/L (22.0-26.0); ABG TOTAL CO2 35.8 MEQ/L (23.0-31.0); ABG pH (ARTERIAL) 7.567 UNITS (7.350-7.450)
--- NOTE | 2019-05-29 10:52 | CCN ---
DATE: 05/29/2019 The patient was seen and examined this morning during bedside rounds. Overnight patient was noted to have increasing episodes of confusion and delirium with hallucinations. He also was becoming intermittently agitated as well as having episodes of desaturation and tachycardia with atrial fibrillation and RVR. He was given metoprolol IV for his rapid ventricular rate with some improvement. He did require increased oxygen supplementation with the ventimask with 50% FiO2. Patient also was noted to have audible mucous secretions in his upper airway as well as tachypnea. Therefore the decision was made overnight for intubation given his increasing respiratory distress as well as his desaturation and for his work of breathing. Patient's son and other family members were at the bedside and agreement with the plan for intubation as patient had wanted to have a trial of intubation and he was currently full code. Post-intubation the patient did become hypotensive. He ws given 500 normal saline bolus but with sedation he required administration of Levophed for vasopressor support and placement of a central line. PHYSICAL EXAMINATION: Temperature 99, heart rate 98, respiratory rate 18, blood pressure 92/55, 02 sat 100% on ventilator at 40% FiO2. In 780 mL 2.4 liters net negative 1.6 liters. GENERAL: Patient is a thin elderly male. He is lying in bed intubated and sedated. He is minimally responsive to painful stimulation. HEENT: Normocephalic, atraumatic. Pupils are small. Mucous membranes are moist. There are some white plaque lesions on the tongue. There is an ET tube in place and an OG tube in place. NECK: Supple and trachea is midline. No palpable adenopathy. No hematoma noted. Hematoma noted on the left side and no crepitus. CARDIOVASCULAR: Irregularly irregular tachycardiac. Normal S1, S2 unable to appreciate murmurs with distant heart sounds. PULMONARY: Decreased breath sounds bilaterally with crackles at the bases and occasional rhonchi but improvement in the wheezing. ABDOMEN: Soft, nontender, and nondistended. EXTREMITIES: Lower extremities, there is no lower extremity edema noted bilaterally. There is ecchymosis noted in his extremities. LABS: WBC 9.8, hemoglobin 11.2, platelets 248, sodium 135, potassium 3.7, chloride 87, bicarbonate 39, BUN 20, creatinine 0.71, glucose 173. ABG pH 7.565, PcO2 41.4, PO2 96.6. Chest x-ray this morning showed OG tube and ET tube in good position. The increased interstitial markings in the left side of the lung are improving. ASSESSMENT AND PLAN: Mr. Petty is an 83-year-old male with a past medial history of COPD with chronic hypoxemia and hypercarbic respiratory failure on his cannula oxygen supplementation, atrial fibrillation, hypertension, diabetes, BPH who presented with increased shortness of breath. Patient was admitted for an acute COPD exacerbation as well as started on antibiotics for a possible pneumonia. His sputum culture had been positive for pseudomonas. Patient was also noted to have hyponatremia which was worsening. He had episodes of delirium and confusion which may have been related to his hyponatremia. Yesterday patient was noted to have worsening respiratory distress and desaturation and appeared to have some difficult managing his secretions with a poor cough reflux. His ABG showed chronic compensated respiratory acidosis, however overnight the patient continued to have desaturation and increased respiratory distress as well as increasing confusion and delirium. He also had atrial fibrillation with RVR. He was intubated for his acute on chronic hypoxemic respiratory failure. Post-intubation patient was sedated and developed hypotension requiring vasopressor support with Levophed. NEURO: Patient has metabolic encephalopathy likely in the setting of his hyponatremia. He is now intubated and sedated on propofol. - Continued with propofol for sedation with a target Kessler of 2-3. - Daily sedation vacation. - Haldol was discontinued. He was started on Mirtazapine by psychiatry. Cardiovascular- history of atrial fibrillation was in atrial fibrillation with rapid ventricular response overnight likely in the setting of his increased respiratory distress. His heart rate has improved post-intubation and he has not required further doses of IV betablockers. Patient has also been hypotensive likely in the setting of some sedation as well as with the positive pressure from ventilation. - Continue with Levophed for vasopressor support to maintain a map above 65. - Patient was given Lasix for suspicion of pulmonary edema contributing to some of his difficulty breathing as he was noted to have bilateral pleural effusions on imaging and an elevated BNP. Lasix was discontinued yesterday as he had been having good urine output and also given his hypotension post-intubation. He was given 500 normal saline bolus. - Continue to monitor his ins and out and would hold further doses of diuretics. - Patient was ordered for an echo, will followup the results. Pulmonary- The patient has a history of COPD with chronic hypoxemic and hypercarbic respiratory failure on nasal cannula oxygen supplementation. He presented with worsening shortness of breath and wheezing, likely with an acute COPD exacerbation. Patient also had sputum cultures positive for pseudomonas but did not have any clear infiltrate suggesting pneumonia on imaging. He may have colonization with pseudomonas given his significant COPD. - Continue with Solu-medrol for his COPD exacerbation. - Continue with Spiriva ad Symbicort. - Continue with Zosyn. Will followup a pro-calcitonin to help with the de-escalation of antibiotics. - Patient did have spiculated nodule in his left lower lobe which is suspicious for malignancy given his age and smoking history. The results of the CT were discussed with the patient's family and they are aware of the suspicious lesion and the potential need for further workup. - Continue with mechanical ventilation. His ABG today shows some respiratory alkalosis, will decrease his RR and follow up repeat ABG on new settings of 450/16/40 and 5 - Continue vent bundle care with head of bed elevation and chlorhexidine mouth wash. - Continue with sedation vacation and weaning trials as tolerated. Renal, patient with hyponatremia. It appears to be hypotonic hyponatremia, possibly in the setting of decreased affective possible volume from some pulmonary edema based on his elevated BNP and some evidence of peripheral edema on admission. He was given Lasix yesterday for diuresis as well as Tolvaptan. There was also some consideration for SIDH given his high urine osmolality. The patients sodium today has increased significantly. Therefore would start him on D5W at 75 mL an hour and followup a repeat sodium in 4 hours to continue to monitor. Will hold off on further diuretics as well as a Tolvaptan. Will continue his [place] and monitor his in and outs and will monitor electrolytes and replete as needed. GI- patient has an OG tube in place now. We will start him on tube feeds and increase as tolerated. - Will change his finger stick glucoses to every 6 and monitor. DVT prophylaxis on anticoagulation with Xarelto. FULL CODE. Total critical care time spent not including any procedures approximately 45 minutes. MTDD
[2019-05-29 12:54] LABS: BLOOD UREA NITROGEN 17 MG/DL (7-18); CALCIUM LEVEL 8.7 MG/DL (8.8-10.2); CARBON DIOXIDE LEVEL 42 MEQ/L (21-32); CHLORIDE LEVEL 88 MEQ/L (98-107); CREATININE FOR GFR 0.79 MG/DL (0.70-1.30); GLOMERULAR FILTRATION RATE > 60.0 (>35); GLUCOSE, FASTING 181 MG/DL (70-100); SODIUM LEVEL 133 MEQ/L (136-145)
[2019-05-29] MEDS ORDERED: KCL 20MEQ IN 100ML SWI (KRUN) 20 MEQ in APPROPRIATE DILUENT 1 EA IV ONE ×4 (14:00→19:00)
[2019-05-29 16:31] LABS: VENOUS HCO3 39.6 MEQ/L (23.0-27.0); VENOUS O2 SATURATION 94.1 % (60.0-80.0); VENOUS PARTIAL PRESSURE O2 70.8 mmHg (30.0-50.0); VENOUS PH 7.437 UNITS (7.330-7.430); VENOUS STANDARD HCO3 36.7 MEQ/L; VENOUS TOTAL CO2 41.4 MEQ/L (24.0-28.0)
[2019-05-29 17:01] LABS: BLOOD UREA NITROGEN 17 MG/DL (7-18); CALCIUM LEVEL 8.3 MG/DL (8.8-10.2); CARBON DIOXIDE LEVEL 43 MEQ/L (21-32); CHLORIDE LEVEL 89 MEQ/L (98-107); CREATININE FOR GFR 0.81 MG/DL (0.70-1.30); GLOMERULAR FILTRATION RATE > 60.0 (>35); GLUCOSE, FASTING 187 MG/DL (70-100); POTASSIUM SERUM 3.3 MEQ/L (3.5-5.1); SODIUM LEVEL 133 MEQ/L (136-145)
[2019-05-29] MEDS: HumaLOG INSULIN (NovoLOG) PER UNIT SC SCH (18:03)
[2019-05-29] MEDS: LATANOPROST 0.005% OPHTH SOLN 2.5 ML OU SCH (20:17)
[2019-05-29] MEDS: MIRTAZAPINE 7.5MG PER 1/2 TABLET PO SCH (20:17)
[2019-05-30] VITALS (40 sets, daily range): BP systolic 80–149; BP diastolic 47–77; O2SAT 91–94
[2019-05-30] MEDS: PROPOFOL 1,000 MG in APPROPRIATE DILUENT 1 EA IV SCH ×2 (00:09→06:21)
[2019-05-30] MEDS: PIPERACILLIN/TAZOBACTAM SOD 4.5 GM in D5W MINI-BAG PLUS 50 ML IV SCH ×5 (00:09→23:59)
[2019-05-30] MEDS: methylPREDNISolone INJ 40 MG/1 ML VIAL (J2920) IV SCH (00:09)
[2019-05-30] MEDS: HumaLOG INSULIN (NovoLOG) PER UNIT SC SCH ×5 (00:10→23:59)
[2019-05-30] MEDS: D5W 1,000 ML IV SCH ×2 (00:22→18:02)
[2019-05-30] MEDS: NOREPINEPHRINE BITARTRATE 16 MG in D5W 484 ML IV SCH ×2 (02:00→14:00)
[2019-05-30] MEDS: LEVALBUTEROL 1.25 MG/0.5 ML CONCENTRATE NEB INH SCH ×6 (04:19→23:32)
[2019-05-30] MEDS: PANTOPRAZOLE 40MG INJ (PROTONIX) (C9113) IV SCH (05:14)
[2019-05-30 05:35] LABS: BASO % 0.1 % (0.0-1.0); HEMATOCRIT 32.7 % (42.0-52.0); HEMOGLOBIN 10.9 g/dl (13.5-17.5); LYMPH # 0.3 10^3/uL (1.5-4.5); LYMPH % 2.1 % (24.0-44.0); MEAN CORPUSCULAR HEMOGLOBIN 30.2 pg (27.0-33.0); MEAN CORPUSCULAR HGB CONC 33.3 g/dl (32.0-36.5); MEAN CORPUSCULAR VOLUME 90.6 fl (80.0-96.0); MONO # 0.9 10^3/uL (0.0-0.8); NEUTROPHILS # 10.5 10^3/uL (1.8-7.7); NEUTROPHILS % 89.2 % (36.0-66.0); PLATELET COUNT, AUTOMATED 187 10^3/uL (150-450); RED BLOOD COUNT 3.61 10^6/uL (4.30-6.10); WHITE BLOOD COUNT 11.8 10^3/uL (4.0-10.0)
[2019-05-30] MEDS ORDERED: OXYMETAZOLINE NASAL SPRAY (AFRIN) PRN (06:00)
[2019-05-30 06:02] LABS: BLOOD UREA NITROGEN 15 MG/DL (7-18); CALCIUM LEVEL 8.1 MG/DL (8.8-10.2); CARBON DIOXIDE LEVEL 42 MEQ/L (21-32); CHLORIDE LEVEL 90 MEQ/L (98-107); GLOMERULAR FILTRATION RATE > 60.0 (>35); GLUCOSE, FASTING 140 MG/DL (70-100); MAGNESIUM LEVEL 2.3 MG/DL (1.8-2.4); POTASSIUM SERUM 3.3 MEQ/L (3.5-5.1); SODIUM LEVEL 135 MEQ/L (136-145)
[2019-05-30 06:12] LABS: ABG BASE EXCESS 15.9 (-2.0-2.0); ABG HCO3 41.2 MEQ/L (22.0-26.0); ABG O2 SATURATION 99.2 % (95.0-99.0); ABG PARTIAL PRESSURE CO2 53.7 mmHg (35.0-45.0); ABG PARTIAL PRESSURE O2 167.9 mmHg (75.0-100.0); ABG STANDARD HCO3 39.8 MEQ/L (22.0-26.0); ABG TOTAL CO2 42.9 MEQ/L (23.0-31.0); ABG pH (ARTERIAL) 7.503 UNITS (7.350-7.450)
--- NOTE | 2019-05-30 06:25 | ECHO ---
DATE OF STUDY: 05/27/2019 REFERRING PHYSICIAN: Dr. Fausto Castro INDICATION: Localized edema. HEIGHT: Not listed. WEIGHT: 54.4 kg. DESCRIPTION: Rhythm was probably sinus tachycardia. This was a technically difficult echocardiogram and only apical windows were available for some kind of imaging. No pericardial effusion. CONCLUSIONS: 1. Technically difficult echocardiogram. 2. Appearance of normal left and right ventricle systolic function without obvious regional wall motion abnormalities from the images obtained. Left ventricular ejection fraction (LVEF) 65% by visual estimate. 3. No aortic regurgitation or mitral regurgitation identified. The aortic and mitral valves appeared structurally normal from the limited views from the left ventricle apex window.
--- NOTE | 2019-05-30 07:20 | IPNPDOC ---
Date Seen The patient was seen on 05/30/19. Progress Note Progress Note SUBJECTIVE: pt was emergently transferred to ICU on 05/28/19 due to worsening respiratory distress, confusion, and hypotension after given iv lasix 60mg, was subsequently intubated, and required vasopressor therapy initially on 8mcg/min levophed, iv zosyn, and 40%FIo2 vent to stabilize. CT chest: LLLspiculated nodule consistent with pulmonary malignancy, severe emphysema, large infrarenal AAA 6.6 cm. Sodium 125 s/p tolvaptan 05/28/19 with sodium improving. Overnight, pt's systolic pressure remained in the 70's on propofol, and unable to be weaned off levophed iv gtt now on 2 mcg/min. Urine output is adequate. He winces to pain on suctioning. no significant secretions noted. Afebrile. Tube feedings started without worsening respiratory distress or signs of aspiration. Telemetry remains unchanged with rate controlled atrial fibrillation with occasional premature ventricular complexes. OBJECTIVE: PHYSICAL EXAMINATION: - Vitals: pls see below - General: intubated with central line. orogastric tube with tube feedings, sedated, but winces to pain - HEENT: no JVD dry mucus membranes. ET tube - CVS: +S1S2 RRR - Lungs: Fair air entry bilaterally, left lung rhonchi, Mild wheezing - Abdomen: Soft, Non-distended, Non-tender scaphoid (+) bowel sounds. no rebound or guarding - Extremities: No calf tenderness no pitting edema - Neuro: No focal motor or sensory deficit - Skin:multiple ecchymotic areas on b/l upper and lower extremities - Neuro: sedated, winces to painful stimuli such as suctioning LABORATORY DATA, IMAGING STUDIES, MICROBIOLOGY: PLS SEE BELOW EXAM: CT Angiography Chest With Contrast EXAM DATE/TIME: 05/28/2019 5:52 PM CLINICAL HISTORY: 83 years old, male; Chest pain; Additional info: Hypoxia TECHNIQUE: Imaging protocol: Axial computed tomographic angiography images of the chest with intravenous contrast using CT angiography protocol. Coronal and sagittal reformatted images were created and reviewed. 3D rendering: MIP reconstructed images were created and reviewed. Radiation optimization: All CT scans at this facility use at least one of these dose optimization techniques: automated exposure control; mA and/or kV adjustment per patient size (includes targeted exams where dose is matched to clinical indication); or iterative reconstruction. Contrast material: ISO 370; Contrast volume: 75 ml; Contrast route: IV; COMPARISON: CR PORTABLE CHEST X-RAY 05/27/2019 7:53 AM FINDINGS: Pulmonary arteries: Normal. No pulmonary emboli. Aorta: Moderate/severe atherosclerosis of the thoracic aorta without thoracic aortic aneurysm or dissection. Limited scans the upper abdomen demonstrates an infrarenal abdominal aortic aneurysm measuring 6.6 cm AP by 6.4 cm transverse. There is intraluminal thrombus and partial opacification of the aneurysm. The aneurysm is incompletely imaged on this examination. No retroperitoneal hematoma is identified. Lungs: Diffuse severe bilateral paraseptal and centrilobular pulmonary emphysema. A spiculated mass measuring 22 mm long by 17 mm transverse by 13 mm AP located in the peripheral aspect of the superior segment of the left lower lobe is consistent with pulmonary neoplasm until proven otherwise (axial images 49 through 56 of series 402). There are 2 nodules measuring 5 mm each within the right lower lobe on images 123 and 129 of series 401 and a 5 mm nodule within the right middle lobe on image 136 of 401. No pulmonary consolidation. Pleural space: There are small bilateral pleural effusions, larger on the left. Heart: Mild atherosclerosis of the coronary arteries. No cardiomegaly or pericardial effusion. Lymph nodes: Unremarkable. No enlarged lymph nodes. Bones/joints: There is degenerative spondylosis and accentuated kyphosis of the thoracic spine. No fracture or suspicious bone lesion is identified. 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 Soft tissues: Unremarkable. IMPRESSION: 1. No pulmonary arterial embolism. 2. Severe pulmonary emphysema. 3. Left lower lobe spiculated nodule measuring 22 mm x 17 mm x 13 mm, consistent with pulmonary neoplasm until proven otherwise. Highly suspicious nodule. Consider PET/CT, or tissue sampling.(Tigist et al., Fleischner Society, 2017). 4. Small right lung pulmonary nodules. 5. Large infrarenal abdominal aortic aneurysm, measuring 6.6 cm, incompletely imaged. Electronically signed by: Momo Bueno On 05/28/2019 18:19:59 PM ASSESSMENT AND PLAN: Patient is an 83-year-old male with a PMHx of Chronic hypoxic respiratory failure, COPD on 2L O2 by Robin BREWER. fib (on Digoxin / Xarelto), HTN, DM2, DLP and BPH who presented to the emergency room visit shortness of breath.Patient was brought into the ER by his son after he reported that he needed a mental health evaluation because he was feeling crazy. Upon arrival to emergency room, patient was found to be hypoxic. Patient was placed on nasal cannula oxygen and brought up to 2 L. Patients breathing had improved and mentation had improved.Patient has reported that hes been experiencing shortness of breath that has been progressive over 2 weeks. Patient also reports that hes been expressing a productive cough with yellowish sputum. Denied any blood. Patient denies any chest pain or palpitations. Patient has been compliant with his inhaled therapy, however he is unable to recall all of his inhaled therapy. Does report that he uses Albuterol and Spiriva.Patient denies any syeda sea, vomiting, abdominal pain, diarrhea or discomfort with urination. Patient does report constipation. . He denies any fevers in the last 2 weeks, he does report chills. Patients family has also reported that he has experienced a weight loss of approximately 20 pounds over 1-2 months. Patient has reported a poor appetite. Patient currently lives alone. Patient reports that he may require further assistance moving forward and family is suggesting jail placement. acute on chronic hypoxic respiratory failure - requiring intubation and mechanical ventilation 05/28/19 managed by Pulmonary, Dr. Cagle - due to COPD exacerbation with pseudomonas, possible fluid overload with elevated bnp s/p lasix - Patient has reported shortness of breath associated with productive cough with yellow sputum on admission - Has reported subjective chills prior to admission - CXR 05/25: Diffuse interstitial infiltrate in left lung -s/p levaquin 05/25-05/28/19 - s/p IV Solu-Medrol lost iv access, changed to po prednisone 05/28/19, changed back to iv solumedrol 05/28/19 once iv access gained - nebs scheduled. -IV zosyn started 05/28/19 - remains hypotensive requiring levophed iv gtt while on propofol Left lung community acquired pneumonia -s/p levaquin 05/25-05/28 -sputum cx: pseudomonas pansensitive -zosyn renally dosed 05/28/19 Acute Encephalopathy -in the setting of Pseudomonas pneumonia, hypoxia, copd exacerbation, and hyponatremia -peripheral iv line placed after it was lost on 05/28/19 -changed to iv solumedrol due to worsening hypoxia - ct chest: spiculated nodule -s/p tolvaptan and serial sodium monitoring -change to iv zosyn and dc po prednisone due to worsening hypoxia. Hypotension -due to overdiuresis and propofol for sedation -unable to wean off levophed iv gtt while on propofol Hyponatremia , improved -s/p lasix 60mg iv 05/28/19 -s/p tolvaptan 05/28/19 Large infrarenal AAA -no signs of severe anemia -monitor blood pressure Pulmonary spiculated nodule -most likely malignancy in light of history of smoking A. fib - rate controlled on current meds - c/w full anticoagulation with Xarelto HTN -requires vasopressor therapy due to low bp. DM2 - Patient is reported that he has a history of diabetes but is currently not on any medications - reviewd A1c5.7 DLP - hold statin while intubated BPH - hold Tamsulosin while intubated Diet: orogastric tube feeding code status: full code VS, I&O, 24H, [facility] Vital Signs/I&O Vital Signs Date Time Temp Pulse Resp B/P (MAP) Pulse Ox O2 Delivery O2 Flow Rate FiO2 05/30/19 06:37 90/58 05/30/19 06:33 92 14 100 40 05/30/19 04:00 98.6 05/29/19 08:22 Ventilator 05/29/19 00:00 15.0 I&O- Last 24 Hours up to 6 AM 05/30/19 05:59 Intake Total 2875.6 ml Output Total 2390 ml Balance 485.6 ml Laboratory Data 24H LABS Laboratory Tests 2 05/29/19 10:04: Blood Gas Bicarbonate Standard 35.3H, Arterial Blood pH 7.567H, Arterial Blood Partial Pressure CO2 38.9, Arterial Blood Partial Pressure O2 74.4L, Arterial Blood Total CO2 35.8H, Arterial Blood HCO3 34.6H, Arterial Blood Base Excess 11.6H, Arterial Blood Oxygen Saturation 95.9 05/29/19 12:02: Anion Gap 3L, Glomerular Filtration Rate > 60.0, Blood Urea Nitrogen 17, Creatinine 0.79, Sodium Level 133L, Potassium Level 3.0L, Chloride Level 88L, Carbon Dioxide Level 42H, Calcium Level 8.7L 05/29/19 12:07: Bedside Glucose (Misc Panel) 174H 05/29/19 15:58: Blood Gas Bicarbonate Standard 36.7, Anion Gap 1L, Glomerular Filtration Rate > 60.0, Blood Urea Nitrogen 17, Creatinine 0.81, Sodium Level 133L, Potassium Level 3.3L, Chloride Level 89L, Carbon Dioxide Level 43H, Calcium Level 8.3L, Venous Blood pH 7.437H, Venous Blood Partial Pressure CO2 60.0H, Venous Blood Partial Pressure O2 70.8H, Venous Blood Total Carbon Dioxide 41.4H, Venous Blood HCO3 39.6H, Venous Blood Oxygen Saturation 94.1H, Venous Blood Base Excess 13.0H 05/29/19 17:48: Bedside Glucose (Misc Panel) 194H 05/29/19 23:57: Bedside Glucose (Misc Panel) 174H 05/30/19 05:17: Immature Granulocyte % (Auto) 0.6, White Blood Count 11.8H, Red Blood Count 3.61L, Hemoglobin 10.9L, Hematocrit 32.7L, Mean Corpuscular Volume 90.6, Mean Corpuscular Hemoglobin 30.2, Mean Corpuscular Hemoglobin Concent 33.3, Red Cell Distribution Width 14.0, Platelet Count 187, Neutrophils (%) (Auto) 89.2H, Lymphocytes (%) (Auto) 2.1L, Monocytes (%) (Auto) 8.0H, Eosinophils (%) (Auto) 0.0, Basophils (%) (Auto) 0.1, Neutrophils # (Auto) 10.5H, Lymphocytes # (Auto) 0.3L, Monocytes # (Auto) 0.9H, Eosinophils # (Auto) 0.0, Basophils # (Auto) 0.0, Nucleated Red Blood Cells % (auto) 0.0, Anion Gap 3L, Glomerular Filtration Rate > 60.0, Blood Urea Nitrogen 15, Creatinine 0.60L, Sodium Level 135L, Potassium Level 3.3L, Chloride Level 90L, Carbon Dioxide Level 42H, Calcium Level 8.1L, Magnesium Level 2.3 05/30/19 05:19: Bedside Glucose (Misc Panel) 124H 05/30/19 06:00: Blood Gas Bicarbonate Standard 39.8H, Arterial Blood pH 7.503H, Arterial Blood Partial Pressure CO2 53.7H, Arterial Blood Partial Pressure O2 167.9H, Arterial Blood Total CO2 42.9H, Arterial Blood HCO3 41.2H, Arterial Blood Base Excess 15.9H, Arterial Blood Oxygen Saturation 99.2H CBC/BMP Laboratory Tests 05/29/19 12:02 Calcium Level 8.7 L 05/29/19 15:58 Calcium Level 8.3 L 05/30/19 05:17 Calcium Level 8.1 L, Red Blood Count 3.61 L, Mean Corpuscular Volume 90.6, Mean Corpuscular Hemoglobin 30.2, Mean Corpuscular Hemoglobin Concent 33.3, Red Cell Distribution Width 14.0, Neutrophils (%) (Auto) 89.2 H, Lymphocytes (%) (Auto) 2.1 L, Monocytes (%) (Auto) 8.0 H, Eosinophils (%) (Auto) 0.0, Basophils (%) (Au to) 0.1, Neutrophils # (Auto) 10.5 H, Lymphocytes # (Auto) 0.3 L, Monocytes # (Auto) 0.9 H, Eosinophils # (Auto) 0.0, Basophils # (Auto) 0.0 Microbiology Microbiology 05/25/19 Blood Culture - Preliminary, Resulted No Growth after 72 hours. All specime... 05/25/19 Blood Culture - Preliminary, Resulted No Growth after 72 hours. All specime... 05/25/19 Gram Stain - Final, Complete 05/25/19 Sputum Culture - Final, Complete Pseudomonas Aeruginosa JONNA GOLD MD May 30, 2019 07:17
[2019-05-30] MEDS: TIOTROPIUM INHALER/CAPSULE (SPIRIVA) INH SCH (08:00)
[2019-05-30] MEDS: SYMBICORT 160/4.5MCG INHALER 6GM INH SCH ×2 (08:01→20:45)
[2019-05-30] MEDS: TAMSULOSIN 0.4 MG CAP PO SCH (09:00)
[2019-05-30] MEDS: ROSUVASTATIN 10 MG TAB (CRESTOR) PO SCH (09:38)
[2019-05-30] MEDS: CHLORHEXIDINE GLUCONATE 0.12 % 15ML UDC (PERIDEX ORAL RINSE) MT SCH (09:38)
[2019-05-30] MEDS: NYSTATIN 500,000 U/5 ML SUSP UDC SS SCH ×4 (09:39→20:57)
[2019-05-30] MEDS: RIVAROXABAN 10 MG TAB (XARELTO) PO SCH (09:39)
[2019-05-30] MEDS: MONTELUKAST 10 MG TAB PO SCH (09:39)
[2019-05-30] MEDS: DIGOXIN 0.125 MG TAB PO SCH (09:39)
[2019-05-30] MEDS: BRIMONIDINE 0.15% OPHTH SOLN 5 ML OU SCH ×2 (09:40→21:18)
[2019-05-30] MEDS ORDERED: KCL 20MEQ IN 100ML SWI (KRUN) 20 MEQ in APPROPRIATE DILUENT 1 EA IV ONE ×2 (10:00)
[2019-05-30] MEDS ORDERED: POTASSIUM CHLORIDE 10 MEQ SR TABLET PO ONE (10:00)
[2019-05-30 10:12] LABS: ABG BASE EXCESS 13.1 (-2.0-2.0); ABG HCO3 39.1 MEQ/L (22.0-26.0); ABG O2 SATURATION 93.2 % (95.0-99.0); ABG PARTIAL PRESSURE CO2 56.7 mmHg (35.0-45.0); ABG PARTIAL PRESSURE O2 71.1 mmHg (75.0-100.0); ABG STANDARD HCO3 36.8 MEQ/L (22.0-26.0); ABG TOTAL CO2 40.9 MEQ/L (23.0-31.0); ABG pH (ARTERIAL) 7.457 UNITS (7.350-7.450)
--- NOTE | 2019-05-30 10:40 | IPNPDOC ---
Text Note Date of Service The patient was seen on 05/30/19. NOTE The patient was seen this morning in the ICU. He is currently intubated and s edated on propofol. He is also on levophed for hypotension. Overnight he has had some improved blood pressures and has been off the levophed intermittently. No other overnight events. PHYSICAL EXAMINATION: VITAL SIGNS: See below GENERAL: Patient appears comfortable, he is lying in bed intubated and sedated. HEENT: PERRLA. Mucous membranes are moist. No JVD. ET tube and OG tube in place. NECK: Supple and trachea is midline CARDIOVASCULAR: Regular rate and rhythm. Normal S1, S2. No murmurs, rubs, or gallops appreciated. PULMONARY: Decreased breath sounds bilaterally with crackles in the left lung base. No wheezing. ABDOMEN: Soft, nontender, and nondistended. No hepatosplenomeagly. EXTREMITIES: No edema, pupils 2+/4 in the dorsalis pedis and radial arteries bilaterally. There is ecchymosis noted in his extremities. LABS: See below CXR: ET tube and OG tube in good position. Left lung consolidation continues to improve. ASSESSMENT/PLAN: 1. COPD exacerbation with acute on chronic hypoxic respiratory failure Pt was intubated on 05/28 and continues on mechanical ventilation. His ABG has improved. We will start weaning trials as tolerated with the goal of extubation today if tolerated. Continue with daily sedation vacation. Continue with solumedrol, spiriva, and symbicort for his COPD exacerbation. 2. Left lung pneumonia Pt was initially on levaquin 05/25-05/28. Sputum culture and sensitivities revealed pansensitive pseudomonas. Started on zosyn with renal dosing on 05/28 and is now on day 3 of zosyn. Today is day 5 of antibiotics and the consolidation seen on CXR in his left lung is resolving. Will discontinue zosyn after 7 day course 3. Metabolic encephalopathy possibly 2/2 hyponatremia Pt is currently intubated and sedated. His sodium levels have improved and stabilized. Will discontinue his fluids and continue to monitor for electrolyte imbalance. 4. Hypotension His blood pressures have been improving intermittently. We expect that the propofol may be contributing to some of his hypotension. Will continue to wean levophed as tolerated to maintain a MAP above 65. 5. Atrial Fibrillation with RVR Pt has not been receiving beta blockers and his heart rate has been intermittently tachycardic but mostly in 90's. Will continue to monitor for changes and hold beta blockers for now given hypotension. He is on xarelto for anticoagulation. 6. Hypokalemia Potassium remains low at 3.3 today. Will replete with oral and IV potassium. Patient was started on tube feeds which he has been tolerating. Held for this morning for weaning trial. 7. Lung nodule seen on CT Pt did have spiculated nodule in his left lower lobe which is suspicious for malignancy given his age and smoking history. The results of the CT were discussed with the patient's family and they are aware of the suspicious lesion and the potential need for further workup in the outpatient setting. DVT prophylaxis: he is on anticoagulation with Xarelto Code Status: Full code VS,Fishbone, I+O VS, Fishbone, I+O 05/30/19 05:17 Calcium Level 8.1 Vital Signs Date Time Temp Pulse Resp B/P (MAP) Pulse Ox O2 Delivery O2 Flow Rate FiO2 05/30/19 08:01 116 14 94 40 05/30/19 08:01 Ventilator 05/30/19 08:00 85/53 I&O- Last 24 Hours up to 6 AM 05/30/19 06:00 Intake Total 3056.2 ml Output Total 2390 ml Balance 666.2 ml GME ATTESTATION GME ATTESTATION My faculty preceptor for this patient encounter was physically present during the encounter and was fully available. All aspects of the patient interview, examination, medical decision making process, and medical care plan development were reviewed and approved by the faculty preceptor. The faculty preceptor is aware and concurs with the plan as stated in the body of this note and will attest to such by his/her cosignature. ATTENDING NOTE I, Shaina Cagle, have conducted an independent examination and history of the patient and agree with the above detailed plan as discussed during rounds. FEDERICO OTT PGY-1 May 30, 2019 10:35 SHAINA CAGLE MD May 31, 2019 09:52
--- NOTE | 2019-05-30 10:40 | REP ---
Portable chest, 06:55 a.m., two AP semi upright views: Comparison is 05/29/2019. Lung payan are again hyperinflated. This is unchanged. The left lung interstitial infiltrate continues to improve. Right lung remains clear. The costophrenic angles are effaced bilaterally suggestive of bilateral pleural effusions. This is unchanged. Cardiac size is normal. There is an endotracheal tube with the tip just above the bronchus intermedius at the beni. There is a nasogastric tube terminating in the abdominal left upper quadrant. Impression: The tip of the endotracheal tube is at but not within the bronchus intermedius. Bilateral pleural effusions. Left lung infiltrate continues to improve. Electronically Signed by Parminder Rodriguez MD 05/30/2019 10:32 A
[2019-05-30 12:52] LABS: BLOOD UREA NITROGEN 16 MG/DL (7-18); CALCIUM LEVEL 8.5 MG/DL (8.8-10.2); CARBON DIOXIDE LEVEL 42 MEQ/L (21-32); CHLORIDE LEVEL 92 MEQ/L (98-107); GLOMERULAR FILTRATION RATE > 60.0 (>35); GLUCOSE, FASTING 84 MG/DL (70-100); POTASSIUM SERUM 3.9 MEQ/L (3.5-5.1); SODIUM LEVEL 136 MEQ/L (136-145)
[2019-05-30] MEDS ORDERED: D5W 1,000 ML IV SCH (18:30)
[2019-05-30] MEDS: MIRTAZAPINE 7.5MG PER 1/2 TABLET PO SCH (20:57)
[2019-05-30] MEDS ORDERED: DEXTROSE 50% 50 ML SYRINGE IV STA (21:04)
[2019-05-30] MEDS ORDERED: D5W/0.45% SODIUM CHLORIDE 1,000 ML IV SCH (21:15)
[2019-05-30] MEDS: LATANOPROST 0.005% OPHTH SOLN 2.5 ML OU SCH (21:19)
[2019-05-31] VITALS (13 sets, daily range): BP systolic 91–144; BP diastolic 52–79
[2019-05-31 00:33] LABS: BLOOD UREA NITROGEN 15 MG/DL (7-18); CALCIUM LEVEL 8.1 MG/DL (8.8-10.2); CARBON DIOXIDE LEVEL 43 MEQ/L (21-32); CHLORIDE LEVEL 92 MEQ/L (98-107); GLOMERULAR FILTRATION RATE > 60.0 (>35); GLUCOSE, FASTING 104 MG/DL (70-100); POTASSIUM SERUM 3.8 MEQ/L (3.5-5.1); SODIUM LEVEL 136 MEQ/L (136-145)
[2019-05-31] MEDS: LEVALBUTEROL 1.25 MG/0.5 ML CONCENTRATE NEB INH SCH ×5 (04:04→20:00)
[2019-05-31 05:37] LABS: BASO % 0.1 % (0.0-1.0); EOS # 0.1 10^3/uL (0.0-0.50); HEMATOCRIT 35.2 % (42.0-52.0); HEMOGLOBIN 11.3 g/dl (13.5-17.5); LYMPH # 0.9 10^3/uL (1.5-4.5); LYMPH % 10.3 % (24.0-44.0); MEAN CORPUSCULAR HEMOGLOBIN 30.5 pg (27.0-33.0); MEAN CORPUSCULAR HGB CONC 32.1 g/dl (32.0-36.5); MEAN CORPUSCULAR VOLUME 94.9 fl (80.0-96.0); NEUTROPHILS # 6.5 10^3/uL (1.8-7.7); NEUTROPHILS % 76.1 % (36.0-66.0); PLATELET COUNT, AUTOMATED 158 10^3/uL (150-450); RED BLOOD COUNT 3.71 10^6/uL (4.30-6.10); WHITE BLOOD COUNT 8.6 10^3/uL (4.0-10.0)
[2019-05-31 05:45] LABS: ABG BASE EXCESS 11.2 (-2.0-2.0); ABG HCO3 39.5 MEQ/L (22.0-26.0); ABG O2 SATURATION 97.5 % (95.0-99.0); ABG PARTIAL PRESSURE O2 100.4 mmHg (75.0-100.0); ABG TOTAL CO2 41.8 MEQ/L (23.0-31.0)
[2019-05-31 05:46] LABS: ABG PARTIAL PRESSURE CO2 73.2 mmHg (35.0-45.0)
[2019-05-31 05:59] LABS: BLOOD UREA NITROGEN 16 MG/DL (7-18); CALCIUM LEVEL 8.2 MG/DL (8.8-10.2); CARBON DIOXIDE LEVEL 42 MEQ/L (21-32); CHLORIDE LEVEL 91 MEQ/L (98-107); CREATININE FOR GFR 0.45 MG/DL (0.70-1.30); GLOMERULAR FILTRATION RATE > 60.0 (>35); GLUCOSE, FASTING 102 MG/DL (70-100); MAGNESIUM LEVEL 2.2 MG/DL (1.8-2.4); SODIUM LEVEL 137 MEQ/L (136-145)
[2019-05-31] MEDS: PANTOPRAZOLE 40MG INJ (PROTONIX) (C9113) IV SCH (05:59)
[2019-05-31] MEDS: PIPERACILLIN/TAZOBACTAM SOD 4.5 GM in D5W MINI-BAG PLUS 50 ML IV SCH ×3 (05:59→18:14)
[2019-05-31] MEDS: HumaLOG INSULIN (NovoLOG) PER UNIT SC SCH ×3 (06:00→18:14)
--- NOTE | 2019-05-31 07:33 | IPNPDOC ---
Date Seen The patient was seen on 05/31/19. Progress Note SUBJECTIVE: Pt was extubated 05/30/19, had an episode of hypoglycemia due to npo status requiring D50 IV, awaiting fiberoptic swallow eval to rule out aspiration. HOB>30degrees. Pt disoriented to year, but able to state his name and "[facility]." "I'm hungry." off levophed iv gtt, but requiring ivfluids. still w productive cough. pt has been suctioning himself this morning. Tele: afib rate controlled.urine output adequate. still sob requiring oxygen , but per RN, pt prefers mask, but more likely appropriate for nasal cannula. medically stable for pcu transfer. Pt requested no visitors after midnight, and refused to see his son last night. s/o sore throat from ET tube, but awaiting swallow eval. OBJECTIVE: PHYSICAL EXAMINATION: - Vitals: pls see below - General: central line. AAOx2 - HEENT: no JVD dry mucus membranes. - CVS: +S1S2 - Lungs: Fair air entry bilaterally, left lung rhonchi, Mild wheezing - Abdomen: Soft, Non-distended, Non-tender scaphoid (+) bowel sounds. no rebound or guarding - Extremities: No calf tenderness no pitting edema - Neuro: No focal motor or sensory deficit - Skin:multiple ecchymotic areas on b/l upper and lower extremities - Neuro: AAOx2 person and place, but unable to say date. no facial asymmetry, fluent speech 5/5 motor b/l UE. gait not tested LABORATORY DATA, IMAGING STUDIES, MICROBIOLOGY: PLS SEE BELOW EXAM: CT Angiography Chest With Contrast EXAM DATE/TIME: 05/28/2019 5:52 PM CLINICAL HISTORY: 83 years old, male; Chest pain; Additional info: Hypoxia TECHNIQUE: Imaging protocol: Axial computed tomographic angiography images of the chest with intravenous contrast using CT angiography protocol. Coronal and sagittal reformatted images were created and reviewed. 3D rendering: MIP reconstructed images were created and reviewed. Radiation optimization: All CT scans at this facility use at least one of these dose optimization techniques: automated exposure control; mA and/or kV adjustment per patient size (includes targeted exams where dose is matched to clinical indication); or iterative reconstruction. Contrast material: ISO 370; Contrast volume: 75 ml; Contrast route: IV; COMPARISON: CR PORTABLE CHEST X-RAY 05/27/2019 7:53 AM FINDINGS: Pulmonary arteries: Normal. No pulmonary emboli. Aorta: Moderate/severe atherosclerosis of the thoracic aorta without thoracic aortic aneurysm or dissection. Limited scans the upper abdomen demonstrates an infrarenal abdominal aortic aneurysm measuring 6.6 cm AP by 6.4 cm transverse. There is intraluminal thrombus and partial opacification of the aneurysm. The aneurysm is incompletely imaged on this examination. No retroperitoneal hematoma is identified. Lungs: Diffuse severe bilateral paraseptal and centrilobular pulmonary emphysema. A spiculated mass measuring 22 mm long by 17 mm transverse by 13 mm AP located in the peripheral aspect of the superior segment of the left lower lobe is consistent with pulmonary neoplasm until proven otherwise (axial images 49 through 56 of series 402). There are 2 nodules measuring 5 mm each within the right lower lobe on images 123 and 129 of series 401 and a 5 mm nodule within the right middle lobe on image 136 of 401. No pulmonary consolidation. Pleural space: There are small bilateral pleural effusions, larger on the left. Heart: Mild atherosclerosis of the coronary arteries. No cardiomegaly or pericardial effusion. Lymph nodes: Unremarkable. No enlarged lymph nodes. Bones/joints: There is degenerative spondylosis and accentuated kyphosis of the thoracic spine. No fracture or suspicious bone lesion is identified. 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 Soft tissues: Unremarkable. IMPRESSION: 1. No pulmonary arterial embolism. 2. Severe pulmonary emphysema. 3. Left lower lobe spiculated nodule measuring 22 mm x 17 mm x 13 mm, consistent with pulmonary neoplasm until proven otherwise. Highly suspicious nodule. Consider PET/CT, or tissue sampling.(Tigist et al., Fleischner Society, 2017). 4. Small right lung pulmonary nodules. 5. Large infrarenal abdominal aortic aneurysm, measuring 6.6 cm, incompletely imaged. Electronically signed by: Momo Bueno On 05/28/2019 18:19:59 PM ASSESSMENT AND PLAN: Patient is an 83-year-old male with a PMHx of Chronic hypoxic respiratory failure, COPD on 2L O2 by Venessa BREWER fib (on Digoxin / Xarelto), HTN, DM2, DLP and BPH who presented to the emergency room visit shortness of breath.Patient was brought into the ER by his son after he reported that he needed a mental health evaluation because he was feeling crazy. Upon arrival to emergency room, patient was found to be hypoxic. Patient was placed on nasal cannula oxygen and brought up to 2 L. Patients breathing had improved and mentation had improved.Patient has reported that hes been experiencing [place] rtness of breath that has been progressive over 2 weeks. Patient also reports that hes been expressing a productive cough with yellowish sputum. Denied any blood. Patient denies any chest pain or palpitations. Patient has been compliant with his inhaled therapy, however he is unable to recall all of his inhaled therapy. Does report that he uses Albuterol and Spiriva.Patient denies any nausea, vomiting, abdominal pain, diarrhea or discomfort with urination. Patient does report constipation. . He denies any fevers in the last 2 weeks, he does report chills. Patients family has also reported that he has experienced a weight loss of approximately 20 pounds over 1-2 months. Patient has reported a poor appetite. Patient currently lives alone. Patient reports that he may require further assistance moving forward and family is suggesting long term placement. acute on chronic hypoxic respiratory failure - requiring intubation and mechanical ventilation 05/28/19 managed by Pulmonary, Dr. Cagle -extubated 05/30/19, awaiting fiberoptic swallow eval to rule out aspiration 05/30/19 - due to COPD exacerbation with pseudomonas, possible fluid overload with elevated bnp s/p lasix - Patient has reported shortness of breath associated with productive cough with yellow sputum on admission - Has reported subjective chills prior to admission - CXR 05/25: Diffuse interstitial infiltrate in left lung -s/p levaquin 05/25-05/28/19 - s/p IV Solu-Medrol lost iv access, changed to po prednisone 05/28/19, changed back to iv solumedrol 05/28/19 once iv access gained - nebs scheduled. -IV zosyn started 05/28/19 - remains hypotensive s/p levophed iv gtt from 05/28/19-05/30/19, but still requiring ivfluids. -05/30/19 post extubation 94% on face mask per pt preference, but per RN may be ok with nasal cannula Left lung community acquired pneumonia -s/p levaquin 05/25-05/28 -sputum cx: pseudomonas pansensitive -zosyn renally dosed 05/28/19 Acute Encephalopathy -in the setting of Pseudomonas pneumonia, hypoxia, copd exacerbation, and hyponatremia -peripheral iv line placed after it was lost on 05/28/19 -changed to iv solumedrol due to worsening hypoxia - ct chest: spiculated nodule -s/p tolvaptan and serial sodium monitoring -change to iv zosyn and dc po prednisone due to worsening hypoxia. Hypotension -due to overdiuresis and propofol for sedation -s/p levophed iv gtt while on propofol 05/28-05/30/19 -currently on ivfluids while npo awaiting swallow eval 05/30/19 Hyponatremia , improved -s/p lasix 60mg iv 05/28/19 -s/p tolvaptan 05/28/19 Large infrarenal AAA -no signs of severe anemia -monitor blood pressure Pulmonary spiculated nodule -most likely malignancy in light of history of smoking A. fib - rate controlled on current meds - c/w full anticoagulation with Xarelto HTN -required vasopressor therapy due to low bp 05/28/19-05/30/19 -still on ivfluids DM2 - Patient is reported that he has a history of diabetes but is currently not on any medications - reviewd [id number] -episode of hypoglycemia 05/30/19 60 due to npo status while awaiting fiberoptic swallow eval, s/p d50 per hypoglycemic protocol -tube feedings discontinued 05/30/19 after extubation. -on ivfluids DLP - resume statin once safe for po intake. BPH - resume once safe for po intake. diet: npo hypoglycemic protocol awaiting swallow eval disposition: stable for pcu transfer. VS, I&O, 24H, Fishbone Vital Signs/I&O Vital Signs Date Time Temp Pulse Resp B/P (MAP) Pulse Ox O2 Delivery O2 Flow Rate FiO2 05/31/19 04:00 28.0 05/31/19 04:00 97.5 20 110/56 (74) 89 05/31/19 03:05 96 05/30/19 10:40 Aerosol Mask 28 I&O- Last 24 Hours up to 6 AM 05/31/19 06:00 Intake Total 1481 ml Output Total 980 ml Balance 501 ml Laboratory Data 24H LABS Laboratory Tests 2 05/30/19 09:57: Blood Gas Bicarbonate Standard 36.8H, Arterial Blood pH 7.457H, Arterial Blood Partial Pressure CO2 56.7H, Arterial Blood Partial Pressure O2 71.1L, Arterial Blood Total CO2 40.9H, Arterial Blood HCO3 39.1H, Arterial Blood Base Excess 13.1H, Arterial Blood Oxygen Saturation 93.2L 05/30/19 12:12: Anion Gap 2L, Glomerular Filtration Rate > 60.0, Blood Urea Nitrogen 16, Creatinine 0.50L, Sodium Level 136, Potassium Level 3.9, Chloride Level 92L, Carbon Dioxide Level 42H, Calcium Level 8.5L 05/30/19 12:14: Bedside Glucose (Misc Panel) 84 05/30/19 18:09: Bedside Glucose (Misc Panel) 61L 05/30/19 20:59: Bedside Glucose (Misc Panel) 65L 05/30/19 21:45: Bedside Glucose (Misc Panel) 101 05/30/19 23:58: Bedside Glucose (Misc Panel) 111H, Anion Gap 1L, Glomerular Filtration Rate > 60.0, Blood Urea Nitrogen 15, Creatinine 0.50L, Sodium Level 136, Potassium Level 3.8, Chloride Level 92L, Carbon Dioxide Level 43H, Calcium Level 8.1L 05/31/19 05:16: Anion Gap 4L, Glomerular Filtration Rate > 60.0, Blood Urea Nitrogen 16, Creatinine 0.45L, Sodium Level 137, Potassium Level 4.0, Chloride Level 91L, Carbon Dioxide Level 42H, Calcium Level 8.2L, Immature Granulocyte % (Auto) 0.5, White Blood Count 8.6, Red Blood Count 3.71L, Hemoglobin 11.3L, Hematocrit 35.2L, Mean Corpuscular Volume 94.9, Mean Corpuscular Hemoglobin 30.5, Mean Corpuscular Hemoglobin Concent 32.1, Red Cell Distribution Width 14.0, Platelet Count 158, Neutrophils (%) (Auto) 76.1H, Lymphocytes (%) (Auto) 10.3L, Monocytes (%) (Auto) 12.0H, Eosinophils (%) (Auto) 1.0, Basophils (%) (Auto) 0.1, Neutrophils # (Auto) 6.5, Lymphocytes # (Auto) 0.9L, Monocytes # (Auto) 1.0H, Eosinophils # (Auto) 0.1, Basophils # (Auto) 0.0, Nucleated Red Blood Cells % (auto) 0.0, Magnesium Level 2.2 05/31/19 05:30: Blood Gas Bicarbonate Standard 35.0H, Arterial Blood pH 7.350, Arterial Blood Partial Pressure CO2 73.2*H, Arterial Blood Partial Pressure O2 100.4H, Arterial Blood Total CO2 41.8H, Arterial Blood HCO3 39.5H, Arterial Blood Base Excess 11.2H, Arterial Blood Oxygen Saturation 97.5 CBC/BMP Laboratory Tests 05/30/19 12:12 Calcium Level 8.5 L 05/30/19 23:58 Calcium Level 8.1 L 05/31/19 05:16 Calcium Level 8.2 L, Red Blood Count 3.71 L, Mean Corpuscular Volume 94.9, Mean Corpuscular Hemoglobin 30.5, Mean Corpuscular Hemoglobin Concent 32.1, Red Cell Distribution Width 14.0, Neutrophils (%) (Auto) 76.1 H, Lymphocytes (%) (Auto) 10.3 L, Monocytes (%) (Auto) 12.0 H, Eosinophils (%) (Auto) 1.0, Basophils (%) (Auto) 0.1, Neutrophils # (Auto) 6.5, Lymphocytes # (Auto) 0.9 L, Monocytes # (Auto) 1.0 H, Eosinophils # (Auto) 0.1, Basophils # (Auto) 0.0 Microbiology Microbiology 05/25/19 Blood Culture - Final, Complete NO GROWTH AFTER 5 DAYS 05/25/19 Blood Culture - Final, Complete NO GROWTH AFTER 5 DAYS 05/25/19 Gram Stain - Final, Complete 05/25/19 Sputum Culture - Final, Complete Pseudomonas Aeruginosa JONNA GOLD MD May 31, 2019 07:33
[2019-05-31] MEDS: SYMBICORT 160/4.5MCG INHALER 6GM INH SCH ×2 (07:52→20:15)
[2019-05-31] MEDS: TIOTROPIUM INHALER/CAPSULE (SPIRIVA) INH SCH ×2 (07:52→08:21)
[2019-05-31] MEDS: NYSTATIN 500,000 U/5 ML SUSP UDC SS SCH ×4 (09:00→20:03)
[2019-05-31] MEDS: methylPREDNISolone INJ 40 MG/1 ML VIAL (J2920) IV SCH (09:31)
[2019-05-31] MEDS: BRIMONIDINE 0.15% OPHTH SOLN 5 ML OU SCH ×2 (09:31→20:04)
--- NOTE | 2019-05-31 10:30 | REP ---
Portable chest, 10:09 a.m., two AP views with the patient sitting: Comparison is 05/30/2019. The endotracheal tube has been removed. The nasogastric tube terminates in the abdominal left upper quadrant in satisfactory position, unchanged. The left lung interstitial infiltrate is unchanged. The right lung remains clear. The lung payan are hyperinflated, unchanged. The costophrenic angles are mildly effaced, unchanged. This could represent bilateral pleural effusions or be from hyperinflation. Cardiac size is normal, unchanged. Impression: The endotracheal tube has been removed. There is no other interval change. Electronically Signed by Parminder Rodriguez MD 05/31/2019 10:21 A
--- NOTE | 2019-05-31 10:54 | CCN ---
DATE: 05/31/2019 The patient was seen and examined this morning during bedside rounds. He was extubated yesterday and has been doing well on nasal cannula oxygen. The patient does have evidence of a hoarse voice as well as does have evidence of some upper airway secretions that he has been suctioning himself as well as an occasional cough still. He therefore has been n.p.o. while we are awaiting fiberoptic swallow evaluation. He had episodes of hypoglycemia yesterday evening and was changed from D5W to D5 half NS. Patient also had some borderline episodes of hypotension, however these improved with fluids. This morning he continues to report some shortness of breath as well as cough occasionally productive of mucus. Denies any chest pains. No wheezing. He does have some sore throat. He denies any abdominal pain. No nausea or vomiting. PHYSICAL EXAM: Temperature 97.5, pulse 96, respirations 20, blood pressure 110/56, O2 sat 89% on 28%. Ins 1.5 liters out 1.2 liters. GENERAL: Patient is a thin elderly male who is lying in bed in no acute distress. Is not using any accessory muscles for respiration currently. HEENT: Normocephalic, atraumatic. Pupils are reactive. Mucous membranes are moist. Neck is supple. Trachea is midline. There is no palpable adenopathy. There is slight bruising on his left neck but no crepitus and no hematoma. CARDIOVASCULAR: Irregularly irregular heart sounds, normal S1-S2. Unable to appreciate any murmurs with distant heart sounds. PULMONARY: Decreased breath sounds bilaterally with few crackles at the bases and rhonchi but no wheezing. ABDOMEN: Soft, nontender, nondistended. EXTREMITIES: Lower extremities there is no edema noted. There is ecchymosis noted in his extremities, mostly in his upper arms. LABORATORY DATA: WBC 8.6, hemoglobin 11.3, platelets 158. Chemistry sodium is 137, potassium 4.0, chloride 91, bicarb 42, BUN 16, creatinine 0.45, glucose is 105. ABG pH 7.35, pCO2 of 73.2, pO2 of 100.4. IMAGING: Chest x-ray this morning shows removal of the ET tube and the OG tube. Lungs are hyperinflated. There are chronic emphysematous changes noted. There is some increased interstitial markings noted more on the left side as well as a possible infiltrate in the left base and likely trace pleural effusion bilaterally. ASSESSMENT/PLAN: The patient is a an 83-year-old male with a past medical history of COPD with chronic hypoxemic and hypercarbic respiratory failure on nasal cannula oxygen supplementation, atrial fibrillation, hypertension, diabetes, BPH who presented with increased shortness of breath. The patient had acute COPD exacerbation with possible pneumonia. His sputum culture was positive for Pseudomonas. The patient was also noted to have symptomatic hyponatremia as well as episode of delirium. He was intubated for increasing respiratory distress and acute on chronic hypoxemic respiratory failure. The patient was able to be successfully extubated yesterday to nasal cannula oxygen supplementation. Acute on chronic hypoxemic respiratory failure and chronic hypercarbic respiratory failure with acute COPD exacerbation. - Continue with Solu-Medrol. Would continue with the IV Solu-Medrol while we are pending a speech evaluation. He would need a slow taper of his steroids. - Continue with Spiriva and Symbicort - Continue with albuterol nebulizers - Continue with Zosyn. Would discontinue after a total of 7-day course. - The patient's ABG post extubation shows a compensated chronic hypercarbic respiratory failure. While he currently does not require BIPAP if he were to have worsening respiratory acidosis he would be a poor candidate for BiPAP given his difficulty with managing secretions currently. - continue with aspiration precautions with head of bed elevation. - Continue with chest PT for mucus clearance and suctioning as needed. - The patient does have a spiculated nodule in his left lower lobe which is suspicious for malignancy given his age and smoking history. He will need follow-up of this nodule likely as an outpatient. - Continue with IV fluids pending the results of his speech evaluation. If he is unable to tolerate any p.o. he would need placement of an NG tube and administration of tube feeds before discontinuing IV fluids. Deep vein thrombosis (DVT) prophylaxis on anticoagulation with Xarelto. FULL CODE. Total critical care time spent, not including procedures, approximately 35 minutes. Please do not hesitate to call if any further questions or concerns. MTDD
[2019-05-31] MEDS: MONTELUKAST 10 MG TAB PO SCH (11:20)
[2019-05-31] MEDS: ROSUVASTATIN 10 MG TAB (CRESTOR) PO SCH (11:20)
[2019-05-31] MEDS: TAMSULOSIN 0.4 MG CAP PO SCH (11:20)
[2019-05-31] MEDS: DIGOXIN 0.125 MG TAB PO SCH (11:20)
[2019-05-31] MEDS: RIVAROXABAN 10 MG TAB (XARELTO) PO SCH (11:20)
[2019-05-31 15:47] LABS: BLOOD UREA NITROGEN 13 MG/DL (7-18); CALCIUM LEVEL 7.8 MG/DL (8.8-10.2); CARBON DIOXIDE LEVEL 42 MEQ/L (21-32); CHLORIDE LEVEL 91 MEQ/L (98-107); GLOMERULAR FILTRATION RATE > 60.0 (>35); GLUCOSE, FASTING 138 MG/DL (70-100); POTASSIUM SERUM 4.3 MEQ/L (3.5-5.1); SODIUM LEVEL 136 MEQ/L (136-145)
[2019-05-31] MEDS: MIRTAZAPINE 7.5MG PER 1/2 TABLET PO SCH (20:03)
[2019-05-31] MEDS: LATANOPROST 0.005% OPHTH SOLN 2.5 ML OU SCH (20:04)
[2019-06-01] VITALS (7 sets, daily range): BP systolic 93–110; BP diastolic 51–64; O2SAT 98
[2019-06-01] MEDS: PIPERACILLIN/TAZOBACTAM SOD 4.5 GM in D5W MINI-BAG PLUS 50 ML IV SCH ×4 (00:19→18:06)
[2019-06-01] MEDS: LEVALBUTEROL 1.25 MG/0.5 ML CONCENTRATE NEB INH SCH ×6 (00:22→20:00)
[2019-06-01 04:42] LABS: BASO % 0.1 % (0.0-1.0); EOS # 0.2 10^3/uL (0.0-0.50); HEMATOCRIT 32.5 % (42.0-52.0); HEMOGLOBIN 10.1 g/dl (13.5-17.5); LYMPH # 0.8 10^3/uL (1.5-4.5); LYMPH % 7.7 % (24.0-44.0); MEAN CORPUSCULAR HEMOGLOBIN 29.4 pg (27.0-33.0); MEAN CORPUSCULAR HGB CONC 31.1 g/dl (32.0-36.5); MEAN CORPUSCULAR VOLUME 94.5 fl (80.0-96.0); MONO % 10.1 % (0.0-5.0); NEUTROPHILS % 79.7 % (36.0-66.0); PLATELET COUNT, AUTOMATED 155 10^3/uL (150-450); RED BLOOD COUNT 3.44 10^6/uL (4.30-6.10)
[2019-06-01 05:04] LABS: BLOOD UREA NITROGEN 18 MG/DL (7-18); CALCIUM LEVEL 8.1 MG/DL (8.8-10.2); CARBON DIOXIDE LEVEL 43 MEQ/L (21-32); CHLORIDE LEVEL 92 MEQ/L (98-107); CREATININE FOR GFR 0.39 MG/DL (0.70-1.30); GLOMERULAR FILTRATION RATE > 60.0 (>35); GLUCOSE, FASTING 93 MG/DL (70-100); MAGNESIUM LEVEL 2.1 MG/DL (1.8-2.4); POTASSIUM SERUM 3.9 MEQ/L (3.5-5.1); SODIUM LEVEL 136 MEQ/L (136-145)
[2019-06-01] MEDS: HumaLOG INSULIN (NovoLOG) PER UNIT SC SCH ×4 (05:29→18:00)
[2019-06-01] MEDS: PANTOPRAZOLE 40MG INJ (PROTONIX) (C9113) IV SCH (05:43)
--- NOTE | 2019-06-01 06:58 | IPNPDOC ---
Date Seen The patient was seen on 06/01/19. Progress Note SUBJECTIVE: Pt was extubated 05/30/19, had an episode of hypoglycemia due to npo status requiring D50 IV, failed fiberoptic swallow eval and at risk for aspiration. HOB>30degrees. Pt disoriented to year, but able to state his name and "[facility]." "I'm hungry." off levophed iv gtt as of 05/30/19, but blood pressure is soft systolic in the 90's mmHg, with decreased urine output to 70ml from with cloudy yelloworange color since 4am 06/01/19. still w productive cough suctioning himself with yankuer. Tele: afib rate controlled.still sob requiring oxygen , but now on nasal cannula from face mask. on IV solumedrol daily with increased in white count. medically stable for pcu, but still in icu due to no bed availability. He is much more awake, and says, "whatever we got to do, " when we discussed placing a feeding tube, but "don't reese it." Pt has a nasogastric tube, and tube feedings since 05/31/19. OBJECTIVE: PHYSICAL EXAMINATION: - Vitals: pls see below - General: central line. AAOx2 - HEENT: no JVD dry mucus membranes. - CVS: +S1S2 - Lungs: Fair air entry bilaterally, left lung rhonchi, Mild wheezing - Abdomen: Soft, Non-distended, Non-tender scaphoid (+) bowel sounds. no rebound or guarding - Extremities: No calf tenderness no pitting edema - Neuro: No focal motor or sensory deficit - Skin:multiple ecchymotic areas on b/l upper and lower extremities - Neuro: AAOx2 person and place, but unable to say date. no facial asymmetry, fluent speech 5/5 motor b/l UE. gait not tested LABORATORY DATA, IMAGING STUDIES, MICROBIOLOGY: PLS SEE BELOW EXAM: CT Angiography Chest With Contrast EXAM DATE/TIME: 05/28/2019 5:52 PM CLINICAL HISTORY: 83 years old, male; Chest pain; Additional info: Hypoxia TECHNIQUE: Imaging protocol: Axial computed tomographic angiography images of the chest with intravenous contrast using CT angiography protocol. Coronal and sagittal reformatted images were created and reviewed. 3D rendering: MIP reconstructed images were created and reviewed. Radiation optimization: All CT scans at this facility use at least one of these dose optimization techniques: automated exposure control; mA and/or kV adjustment per patient size (includes targeted exams where dose is matched to clinical indication); or iterative reconstruction. Contrast material: ISO 370; Contrast volume: 75 ml; Contrast route: IV; COMPARISON: CR PORTABLE CHEST X-RAY 05/27/2019 7:53 AM FINDINGS: Pulmonary arteries: Normal. No pulmonary emboli. Aorta: Moderate/severe atherosclerosis of the thoracic aorta without thoracic aortic aneurysm or dissection. Limited scans the upper abdomen demonstrates an infrarenal abdominal aortic aneurysm measuring 6.6 cm AP by 6.4 cm transverse. There is intraluminal thrombus and partial opacification of the aneurysm. The aneurysm is incompletely imaged on this examination. No retroperitoneal hematoma is identified. Lungs: Diffuse severe bilateral paraseptal and centrilobular pulmonary emphysema. A spiculated mass measuring 22 mm long by 17 mm transverse by 13 mm AP located in the peripheral aspect of the superior segment of the left lower lobe is consistent with pulmonary neoplasm until proven otherwise (axial images 49 through 56 of series 402). There are 2 nodules measuring 5 mm each within the right lower lobe on images 123 and 129 of series 401 and a 5 mm nodule within the right middle lobe on image 136 of 401. No pulmonary consolidation. Pleural space: There are small bilateral pleural effusions, larger on the left. Heart: Mild atherosclerosis of the coronary arteries. No cardiomegaly or pericardial effusion. Lymph nodes: Unremarkable. No enlarged lymph nodes. Bones/joints: There is degenerative spondylosis and accentuated kyphosis of the thoracic spine. No fracture or suspicious bone lesion is identified. 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 Soft tissues: Unremarkable. IMPRESSION: 1. No pulmonary arterial embolism. 2. Severe pulmonary emphysema. 3. Left lower lobe spiculated nodule measuring 22 mm x 17 mm x 13 mm, consistent with pulmonary neoplasm until proven otherwise. Highly suspicious nodule. Consider PET/CT, or tissue sampling.(Tigist et al., Fleischner Society, 2017). 4. Small right lung pulmonary nodules. 5. Large infrarenal abdominal aortic aneurysm, measuring 6.6 cm, incompletely imaged. Electronically signed by: Momo Bueno On 05/28/2019 18:19:59 PM ASSESSMENT AND PLAN: Patient is an 83-year-old male with a PMHx of Chronic hypoxic respiratory failure, COPD on 2L O2 by Venessa BREWER (on Digoxin / Xarelto), HTN, DM2, DLP and BPH who presented to the emergency room visit shortness of breath.Patient was brought into the ER by his son after he reported that he nee ded a mental health evaluation because he was feeling crazy. Upon arrival to emergency room, patient was found to be hypoxic. Patient was placed on nasal cannula oxygen and brought up to 2 L. Patients breathing had improved and mentation had improved.Patient has reported that hes been experiencing shortness of breath that has been progressive over 2 weeks. Patient also reports that hes been expressing a productive cough with yellowish sputum. Denied any blood. Patient denies any chest pain or palpitations. Patient has been compliant with his inhaled therapy, however he is unable to recall all of his inhaled therapy. Does report that he uses Albuterol and Spiriva.Patient denies any nausea, vomiting, abdominal pain, diarrhea or discomfort with urination. Patient does report constipation. . He denies any fevers in the last 2 weeks, he does report chills. Patients family has also reported that he has experienced a weight loss of approximately 20 pounds over 1-2 months. Patient has reported a poor appetite. Patient currently lives alone. Patient reports that he may require further ass istance moving forward and family is suggesting detention placement. acute on chronic hypoxic respiratory failure - requiring intubation and mechanical ventilation 05/28/19 managed by Pulmonary, Dr. Cagle -extubated 05/30/19, awaiting fiberoptic swallow eval to rule out aspiration 05/30/19 - due to COPD exacerbation with pseudomonas, possible fluid overload with elevated bnp s/p lasix - Patient has reported shortness of breath associated with productive cough with yellow sputum on admission - Has reported subjective chills prior to admission - CXR 05/25: Diffuse interstitial infiltrate in left lung -s/p levaquin 05/25-05/28/19 - s/p IV Solu-Medrol lost iv access, changed to po prednisone 05/28/19, changed back to iv solumedrol 05/28/19 once iv access gained - nebs scheduled. -IV zosyn started 05/28/19 - remains hypotensive s/p levophed iv gtt from 05/28/19-05/30/19, s/p Iv fluids but maintaining a MAP >60 -05/30/19 post extubation 94% on face mask per pt preference, but per now on nasal cannula Left lung community acquired pneumonia -s/p levaquin 05/25-05/28 -sputum cx: pseudomonas pansensitive -zosyn renally dosed 05/28/19 to complete a 7 day course -slight increased in wbc 06/01/19, but due to solumedrol most likely Acute Metabolic Encephalopathy -in the setting of Pseudomonas pneumonia, hypoxia, copd exacerbation, and hyponatremia -peripheral iv line placed after it was lost on 05/28/19 -changed to iv solumedrol due to worsening hypoxia - ct chest: spiculated nodule -s/p tolvaptan and serial sodium monitoring -changed to iv zosyn and dc po prednisone due to worsening hypoxia. Hypotension -due to overdiuresis and propofol for sedation -s/p levophed iv gtt while on propofol 05/28-05/30/19 -s/p IVFluids - npo because failed fiberoptic swallow eval 05/30/19 Hyponatremia , improved to normal -s/p lasix 60mg iv 05/28/19 -s/p tolvaptan 05/28/19 Large infrarenal AAA -no signs of severe anemia -monitor blood pressure Pulmonary spiculated nodule -most likely malignancy in light of history of smoking -may have caused SIADH and hyponatremia -pt is not a candidate for biopsy and chemo/resection due to severe comorbid conditions A. 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 DLP - resume statin once safe for po intake. BPH - resume once safe for po intake. diet: npo hypoglycemic protocol failed fiberoptic swallow eval 05/31/19 and at risk of aspiration on tube feedings code status: full code disposition:pcu pt. VS, I&O, 24H, Fishbone Vital Signs/I&O Vital Signs Date Time Temp Pulse Resp B/P (MAP) Pulse Ox O2 Delivery O2 Flow Rate FiO2 06/01/19 04:00 98.7 94 14 110/57 (74) 94 2.0 05/30/19 10:40 Aerosol Mask 28 I&O- Last 24 Hours up to 6 AM 06/01/19 05:59 Intake Total 2920 ml Output Total 1090 ml Balance 1830 ml Laboratory Data 24H LABS Laboratory Tests 2 05/31/19 12:01: Bedside Glucose (Misc Panel) 109 05/31/19 15:09: Anion Gap 3L, Glomerular Filtration Rate > 60.0, Blood Urea Nitrogen 13, Creatinine 0.60L, Sodium Level 136, Potassium Level 4.3, Chloride Level 91L, Carbon Dioxide Level 42H, Calcium Level 7.8L 05/31/19 17:54: Bedside Glucose (Misc Panel) 123H 05/31/19 23:56: Bedside Glucose (Misc Panel) 94 06/01/19 04:25: Immature Granulocyte % (Auto) 0.4, White Blood Count 10.0, Red Blood Count 3.44L, Hemoglobin 10.1L, Hematocrit 32.5L, Mean Corpuscular Volume 94.5, Mean Corpuscular Hemoglobin 29.4, Mean Corpuscular Hemoglobin Concent 31.1L, Red Cell Distribution Width 13.7, Platelet Count 155, Neutrophils (%) (Auto) 79.7H, Lymphocytes (%) (Auto) 7.7L, Monocytes (%) (Auto) 10.1H, Eosinophils (%) (Auto) 2.0, Basophils (%) (Auto) 0.1, Neutrophils # (Auto) 8.0H, Lymphocytes # (Auto) 0.8L, Monocytes # (Auto) 1.0H, Eosinophils # (Auto) 0.2, Basophils # (Auto) 0.0, Nucleated Red Blood Cells % (auto) 0.0, Anion Gap 1L, Glomerular Filtration Rate > 60.0, Blood Urea Nitrogen 18, Creatinine 0.39L, Sodium Level 136, Potassium Level 3.9, Chloride Level 92L, Carbon Dioxide Level 43H, Calcium Level 8.1L, Ma gnesium Level 2.1 CBC/BMP Laboratory Tests 05/31/19 15:09 Calcium Level 7.8 L 06/01/19 04:25 Calcium Level 8.1 L, Red Blood Count 3.44 L, Mean Corpuscular Volume 94.5, Mean Corpuscular Hemoglobin 29.4, Mean Corpuscular Hemoglobin Concent 31.1 L, Red Cell Distribution Width 13.7, Neutrophils (%) (Auto) 79.7 H, Lymphocytes (%) (Auto) 7.7 L, Monocytes (%) (Auto) 10.1 H, Eosinophils (%) (Auto) 2.0, Basophils (%) (Auto) 0.1, Neutrophils # (Auto) 8.0 H, Lymphocytes # (Auto) 0.8 L, Monocytes # (Auto) 1.0 H, Eosinophils # (Auto) 0.2, Basophils # (Auto) 0.0 Microbiology Microbiology 05/25/19 Blood Culture - Final, Complete NO GROWTH AFTER 5 DAYS 05/25/19 Blood Culture - Final, Complete NO GROWTH AFTER 5 DAYS 05/25/19 Gram Stain - Final, Complete 05/25/19 Sputum Culture - Final, Complete Pseudomonas Aeruginosa JONNA GOLD MD Jun 01, 2019 06:56
[2019-06-01] MEDS: TIOTROPIUM INHALER/CAPSULE (SPIRIVA) INH SCH (08:14)
[2019-06-01] MEDS: SYMBICORT 160/4.5MCG INHALER 6GM INH SCH ×2 (08:14→20:38)
--- NOTE | 2019-06-01 08:46 | REPVR ---
EXAM: CT Head Without Contrast EXAM DATE/TIME: 06/01/2019 7:48 AM CLINICAL HISTORY: 83 years old, male; Altered mental status/memory loss; Other: Afib altered mental status dysphagia R/O CVA TECHNIQUE: Imaging protocol: Computed tomography images of the head without contrast. Radiation optimization: All CT scans at this facility use at least one of these dose optimization techniques: automated exposure control; mA and/or kV adjustment per patient size (includes targeted exams where dose is matched to clinical indication); or iterative reconstruction. COMPARISON: No relevant prior studies available. FINDINGS: Tubes, catheters and devices: Nasal pharyngeal enteric tube. Brain: Low attenuating white matter changes suggesting microvascular ischemia on a chronic basis. Cerebellar volume loss. Intracranial vessel calcification. Ventricles: Variant change of the cavum reflecting cavum vergae. Bones/joints: Bony nasal septal deviation. Sinuses: Visualized sinuses are unremarkable. No fluid levels. Mastoid air cells: Visualized mastoid air cells are well aerated. No mastoid effusion. Orbits: Surgical changes of the globes bilaterally. Soft tissues: Unremarkable. Vasculature: Extra-axial density overlies the right temporal lobe most likely vascular in origin as well as on the right. Other findings: Hemispheric volume loss. IMPRESSION: 1. Hemispheric volume loss. 2. Likely chronic low attenuating white matter changes. 3. Symmetric extra-axial density along the bone margin overlying both temporal lobes are probably vessels. Electronically signed by: Diana Kaye On 06/01/2019 08:45:50 AM
[2019-06-01] MEDS: NYSTATIN 500,000 U/5 ML SUSP UDC SS SCH ×4 (09:00→20:32)
[2019-06-01] MEDS: BRIMONIDINE 0.15% OPHTH SOLN 5 ML OU SCH ×2 (09:16→20:32)
[2019-06-01] MEDS: ROSUVASTATIN 10 MG TAB (CRESTOR) PO SCH (09:17)
[2019-06-01] MEDS: TAMSULOSIN 0.4 MG CAP PO SCH (09:17)
[2019-06-01] MEDS: methylPREDNISolone INJ 40 MG/1 ML VIAL (J2920) IV SCH (09:17)
[2019-06-01] MEDS: MONTELUKAST 10 MG TAB PO SCH (09:17)
[2019-06-01] MEDS: DIGOXIN 0.125 MG TAB PO SCH (09:17)
[2019-06-01] MEDS: RIVAROXABAN 10 MG TAB (XARELTO) PO SCH (18:06)
[2019-06-01] MEDS: MIRTAZAPINE 7.5MG PER 1/2 TABLET PO SCH (20:32)
[2019-06-01] MEDS: LATANOPROST 0.005% OPHTH SOLN 2.5 ML OU SCH (20:32)
[2019-06-02] VITALS (9 sets, daily range): BP systolic 91–114; BP diastolic 52–58; O2SAT 98
[2019-06-02] MEDS: PIPERACILLIN/TAZOBACTAM SOD 4.5 GM in D5W MINI-BAG PLUS 50 ML IV SCH ×5 (00:40→23:18)
[2019-06-02] MEDS: LEVALBUTEROL 1.25 MG/0.5 ML CONCENTRATE NEB INH SCH ×7 (01:32→23:45)
[2019-06-02] MEDS: HumaLOG INSULIN (NovoLOG) PER UNIT SC SCH ×4 (06:00→18:11)
[2019-06-02] MEDS: PANTOPRAZOLE 40MG INJ (PROTONIX) (C9113) IV SCH (06:03)
[2019-06-02] MEDS: ACETAMINOPHEN TAB 650MG DOSE (2X325MG) PO PRN ×2 (06:03→20:22)
[2019-06-02] MEDS: SYMBICORT 160/4.5MCG INHALER 6GM INH SCH ×2 (07:17→20:30)
[2019-06-02] MEDS: TIOTROPIUM INHALER/CAPSULE (SPIRIVA) INH SCH (07:17)
[2019-06-02] MEDS: methylPREDNISolone INJ 40 MG/1 ML VIAL (J2920) IV SCH (08:32)
[2019-06-02] MEDS: TAMSULOSIN 0.4 MG CAP PO SCH (08:33)
[2019-06-02] MEDS: NYSTATIN 500,000 U/5 ML SUSP UDC SS SCH ×4 (08:33→20:22)
[2019-06-02] MEDS: ROSUVASTATIN 10 MG TAB (CRESTOR) PO SCH (08:33)
[2019-06-02] MEDS: MONTELUKAST 10 MG TAB PO SCH (08:33)
[2019-06-02] MEDS: DIGOXIN 0.125 MG TAB PO SCH (08:35)
--- NOTE | 2019-06-02 14:42 | IPNPDOC ---
Date Seen The patient was seen on 06/02/19. Progress Note SUBJECTIVE: He is AAOx3 and says, "whatever we got to do, " when we discussed placing a feeding tube, but "don't reese it." Pt has a nasogastric tube, and tube feedings since 05/31/19 due to inability to protect his airway with signs of aspiration. He continues to have a lot of secretions which he suctions. [place] discontinued. Tele: Afib. on digoxin due to soft blood pressure. OBJECTIVE: PHYSICAL EXAMINATION: - Vitals: pls see below - General: central line. AAOx2, NG tube - HEENT: no JVD dry mucus membranes. - CVS: +S1S2 irregularly irregular - Lungs: Fair air entry bilaterally, left lung rhonchi, Mild wheezing - Abdomen: Soft, Non-distended, Non-tender scaphoid (+) bowel sounds. no rebound or guarding - Extremities: No calf tenderness no pitting edema - Neuro: No focal motor or sensory deficit - Skin:multiple ecchymotic areas on b/l upper and lower extremities - Neuro: AAOx2 person and place, no facial asymmetry, fluent speech 5/5 motor b/l UE. gait not tested LABORATORY DATA, IMAGING STUDIES, MICROBIOLOGY: PLS SEE BELOW EXAM: CT Angiography Chest With Contrast EXAM DATE/TIME: 05/28/2019 5:52 PM CLINICAL HISTORY: 83 years old, male; Chest pain; Additional info: Hypoxia TECHNIQUE: Imaging protocol: Axial computed tomographic angiography images of the chest with intravenous contrast using CT angiography protocol. Coronal and sagittal reformatted images were created and reviewed. 3D rendering: MIP reconstructed images were created and reviewed. Radiation optimization: All CT scans at this facility use at least one of these dose optimization techniques: automated exposure control; mA and/or kV adjustment per patient size (includes targeted exams where dose is matched to clinical indication); or iterative reconstruction. Contrast material: ISO 370; Contrast volume: 75 ml; Contrast route: IV; COMPARISON: CR PORTABLE CHEST X-RAY 05/27/2019 7:53 AM FINDINGS: Pulmonary arteries: Normal. No pulmonary emboli. Aorta: Moderate/severe atherosclerosis of the thoracic aorta without thoracic aortic aneurysm or dissection. Limited scans the upper abdomen demonstrates an infrarenal abdominal aortic aneurysm measuring 6.6 cm AP by 6.4 cm transverse. There is intraluminal thrombus and partial opacification of the aneurysm. The aneurysm is incompletely imaged on this examination. No retroperitoneal hematoma is identified. Lungs: Diffuse severe bilateral paraseptal and centrilobular pulmonary emphysema. A spiculated mass measuring 22 mm long by 17 mm transverse by 13 mm AP located in the peripheral aspect of the superior segment of the left lower lobe is consistent with pulmonary neoplasm until proven otherwise (axial images 49 through 56 of series 402). There are 2 nodules measuring 5 mm each within the right lower lobe on images 123 and 129 of series 401 and a 5 mm nodule within the right middle lobe on image 136 of 401. No pulmonary consolidation. Pleural space: There are small bilateral pleural effusions, larger on the left. Heart: Mild atherosclerosis of the coronary arteries. No cardiomegaly or pericardial effusion. Lymph nodes: Unremarkable. No enlarged lymph nodes. Bones/joints: There is degenerative spondylosis and accentuated kyphosis of the thoracic spine. No fracture or suspicious bone lesion is identified. 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 Soft tissues: Unremarkable. IMPRESSION: 1. No pulmonary arterial embolism. 2. Severe pulmonary emphysema. 3. Left lower lobe spiculated nodule measuring 22 mm x 17 mm x 13 mm, consistent with pulmonary neoplasm until proven otherwise. Highly suspicious nodule. Consider PET/CT, or tissue sampling.(Tigist, et al., Fleischner Society, 2017). 4. Small right lung pulmonary nodules. 5. Large infrarenal abdominal aortic aneurysm, measuring 6.6 cm, incompletely imaged. Electronically signed by: Momo Bueno On 05/28/2019 18:19:59 PM ASSESSMENT AND PLAN: Patient is an 83-year-old male with a PMHx of Chronic hypoxic respiratory failure, COPD on 2L O2 by Venessa BREWER (on Digoxin / Xarelto), HTN, DM2, DLP and BPH who presented to the emergency room visit shortness of breath.Patient was brought into the ER by his son after he reported that he needed a mental health evaluation because he was feeling crazy. Upon arrival to emergency room, patient was found to be hypoxic. Patient was placed on nasal cannula oxygen and brought up to 2 L. Patients breathing had improved and mentation had improved.Patient has reported that hes been experiencing shortness of breath that has been progressive over 2 weeks. Patient also reports that hes been expressing a productive cough with yellowish sputum. Denied any blood. Patient denies any chest pain or palpitations. Patient has been compliant with his inhaled therapy, however he is unable to recall all of his inhaled therapy. Does report that he uses Albuterol and Spiriva.Patient denies any nausea, vomiting, abdominal pain, diarrhea or discomfort with urination. Patient does report constipation. . He denies any fevers in the last 2 weeks, he does report chills. Patients family has also reported that he has experienced a weight loss of approximately 20 pounds over 1-2 months. Patient has reported a poor appetite. Patient currently lives alone. Patient reports that he may require further assistance moving forward and family is suggesting chcf placement. acute on chronic hypoxic respiratory failure - requiring intubation and mechanical ventilation 05/28/19 managed by Pulmonary, Dr. Cagle -extubated 05/30/19, awaiting fiberoptic swallow eval to rule out aspiration 05/30/19 - due to COPD exacerbation with pseudomonas, possible fluid overload with elevated bnp s/p lasix - Patient has reported shortness of breath associated with productive cough with yellow sputum on admission - Has reported subjective chills prior to admission - CXR 05/25: Diffuse interstitial infiltrate in left lung -s/p levaquin 05/25-05/28/19 - s/p IV Solu-Medrol lost iv access, changed to po prednisone 05/28/19, changed back to iv solumedrol 05/28/19 once iv access gained - nebs scheduled. -IV zosyn started 05/28/19 - remains hypotensive s/p levophed iv gtt from 05/28/19-05/30/19, s/p Iv fluids but maintaining a MAP >60 -05/30/19 post extubation 94% on face mask per pt preference, but per now on nasal cannula Left lung community acquired pneumonia -s/p levaquin 05/25-05/28 -sputum cx: pseudomonas pansensitive -zosyn renally dosed 05/28/19 to complete a 7 day course -slight increased in wbc 06/01/19, but due to solumedrol most likely Acute Metabolic Encephalopathy -in the setting of Pseudomonas pneumonia, hypoxia, copd exacerbation, and hyponatremia -peripheral iv line placed after it was lost on 05/28/19 -changed to iv solumedrol due to worsening hypoxia - ct chest: spiculated nodule -s/p tolvaptan and serial sodium monitoring -changed to iv zosyn and dc po prednisone due to worsening hypoxia. Hypotension -due to overdiuresis and propofol for sedation -s/p levophed iv gtt while on propofol 05/28-05/30/19 -s/p IVFluids - npo because failed fiberoptic swallow eval 05/30/19 Hyponatremia , improved to normal -s/p lasix 60mg iv 05/28/19 -s/p tolvaptan 05/28/19 Large infrarenal AAA -no signs of severe anemia -monitor blood pressure Pulmonary spiculated nodule -most likely malignancy in light of history of smoking -may have caused SIADH and hyponatremia -pt is not a candidate for biopsy and chemo/resection due to severe comorbid conditions A. 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 DLP - resume statin once safe for po intake. BPH - resume once safe for po intake. diet: npo hypoglycemic protocol failed fiberoptic swallow eval 05/31/19 and at risk of aspiration on tube feedings code status: full code disposition:pcu pt. VS, I&O, 24H, Fishbone Vital Signs/I&O Vital Signs Date Time Temp Pulse Resp B/P (MAP) Pulse Ox O2 Delivery O2 Flow Rate FiO2 06/02/19 12:00 98.0 112 24 114/56 (75) 96 2.0 06/02/19 05:06 Nasal Cannula 05/30/19 10:40 28 I&O- Last 24 Hours up to 6 AM 06/02/19 06:00 Intake Total 1540 ml Output Total 1575 ml Balance -35 ml Laboratory Data 24H LABS Laboratory Tests 2 06/01/19 17:57: Bedside Glucose (Misc Panel) 129H 06/02/19 00:39: Bedside Glucose (Misc Panel) 101 06/02/19 06:50: Bedside Glucose (Misc Panel) 90 06/02/19 12:54: Bedside Glucose (Misc Panel) 130H Microbiology Microbiology 05/25/19 Blood Culture - Final, Complete NO GROWTH AFTER 5 DAYS 05/25/19 Blood Culture - Final, Complete NO GROWTH AFTER 5 DAYS 05/25/19 Gram Stain - Final, Complete 05/25/19 Sputum Culture - Final, Complete Pseudomonas Aeruginosa JONNA GOLD MD Jun 02, 2019 14:42
[2019-06-02 15:18] LABS: DIGOXIN LEVEL 0.5 NG/ML (0.5-2.0)
[2019-06-02] MEDS: BRIMONIDINE 0.15% OPHTH SOLN 5 ML OU SCH ×2 (15:30→18:12)
[2019-06-02] MEDS: RIVAROXABAN 10 MG TAB (XARELTO) PO SCH (18:11)
[2019-06-02] MEDS: MIRTAZAPINE 7.5MG PER 1/2 TABLET PO SCH (20:21)
[2019-06-02] MEDS: LATANOPROST 0.005% OPHTH SOLN 2.5 ML OU SCH (20:23)
[2019-06-03] VITALS: BP 112/71
[2019-06-03] MEDS: ACETAMINOPHEN TAB 650MG DOSE (2X325MG) PO PRN ×2 (02:15→21:47)
[2019-06-03 04:00] VITALS: BP 109/74
[2019-06-03] MEDS: LEVALBUTEROL 1.25 MG/0.5 ML CONCENTRATE NEB INH SCH ×5 (04:00→19:58)
[2019-06-03] MEDS: HumaLOG INSULIN (NovoLOG) PER UNIT SC SCH ×4 (06:00→17:53)
[2019-06-03] MEDS: PIPERACILLIN/TAZOBACTAM SOD 4.5 GM in D5W MINI-BAG PLUS 50 ML IV SCH ×3 (06:07→18:34)
[2019-06-03] MEDS: PANTOPRAZOLE 40MG INJ (PROTONIX) (C9113) IV SCH (06:07)
[2019-06-03 08:00] VITALS: BP 114/50
[2019-06-03] MEDS: TIOTROPIUM INHALER/CAPSULE (SPIRIVA) INH SCH (08:26)
[2019-06-03] MEDS: SYMBICORT 160/4.5MCG INHALER 6GM INH SCH ×2 (08:26→19:59)
[2019-06-03] MEDS: TAMSULOSIN 0.4 MG CAP PO SCH (09:26)
[2019-06-03] MEDS: DIGOXIN 0.125 MG TAB PO SCH (09:26)
[2019-06-03] MEDS: NYSTATIN 500,000 U/5 ML SUSP UDC SS SCH ×4 (09:26→21:45)
[2019-06-03] MEDS: BRIMONIDINE 0.15% OPHTH SOLN 5 ML OU SCH ×2 (09:27→21:46)
[2019-06-03] MEDS: ROSUVASTATIN 10 MG TAB (CRESTOR) PO SCH (09:27)
[2019-06-03] MEDS: MONTELUKAST 10 MG TAB PO SCH (09:30)
[2019-06-03 09:58] LABS: BASO % 0.1 % (0.0-1.0); EOS # 0.1 10^3/uL (0.0-0.50); EOS % 1.3 % (0.0-3.0); HEMATOCRIT 36.2 % (42.0-52.0); HEMOGLOBIN 11.4 g/dl (13.5-17.5); LYMPH # 0.8 10^3/uL (1.5-4.5); LYMPH % 7.4 % (24.0-44.0); MEAN CORPUSCULAR HEMOGLOBIN 29.2 pg (27.0-33.0); MEAN CORPUSCULAR HGB CONC 31.5 g/dl (32.0-36.5); MEAN CORPUSCULAR VOLUME 92.8 fl (80.0-96.0); MONO # 1.3 10^3/uL (0.0-0.8); MONO % 12.1 % (0.0-5.0); NEUTROPHILS # 8.5 10^3/uL (1.8-7.7); NEUTROPHILS % 78.6 % (36.0-66.0); PLATELET COUNT, AUTOMATED 158 10^3/uL (150-450); WHITE BLOOD COUNT 10.8 10^3/uL (4.0-10.0)
[2019-06-03 10:40] LABS: ALT/SGPT 31 U/L (12-78); BILIRUBIN,TOTAL 0.8 MG/DL (0.2-1.0); BLOOD UREA NITROGEN 23 MG/DL (7-18); CALCIUM LEVEL 8.7 MG/DL (8.8-10.2); CARBON DIOXIDE LEVEL 40 MEQ/L (21-32); CHLORIDE LEVEL 93 MEQ/L (98-107); CREATININE FOR GFR 0.56 MG/DL (0.70-1.30); DIGOXIN LEVEL 1.4 NG/ML (0.5-2.0); GLOMERULAR FILTRATION RATE > 60.0 (>35); GLUCOSE, FASTING 103 MG/DL (70-100); SODIUM LEVEL 136 MEQ/L (136-145); TOTAL PROTEIN 5.9 GM/DL (6.4-8.2)
[2019-06-03 11:30] VITALS: BP 135/62
[2019-06-03] MEDS: methylPREDNISolone INJ 125 MG/2 ML VIAL (J2930) IV SCH ×2 (12:36→18:34)
--- NOTE | 2019-06-03 15:04 | IPNPDOC ---
Date Seen The patient was seen on 06/03/19. Progress Note SUBJECTIVE: Pt c/o sob on iv solumedrol. repeat cxr pending official report. no ches tpain, fever, chills. still w copious amount of secretions which he suctions with a yankuer. He is AAOx3 and says, "whatever we got to do, " when we discussed placing a feeding tube, but "don't reese it." Pt has a nasogastric tube, and tube feedings since 05/31/19 due to inability to protect his airway with signs of aspiration. OBJECTIVE: PHYSICAL EXAMINATION: - Vitals: pls see below - General: central line. AAOx2, NG tube - HEENT: no JVD dry mucus membranes. - CVS: +S1S2 irregularly irregular - Lungs: Fair air entry bilaterally, left lung rhonchi, Mild wheezing - Abdomen: Soft, Non-distended, Non-tender scaphoid (+) bowel sounds. no rebound or guarding - Extremities: No calf tenderness no pitting edema - Neuro: No focal motor or sensory deficit - Skin:multiple ecchymotic areas on b/l upper and lower extremities - Neuro: AAOx2 person and place, no facial asymmetry, fluent speech 5/5 motor b/l UE. gait not tested LABORATORY DATA, IMAGING STUDIES, MICROBIOLOGY: PLS SEE BELOW EXAM: CT Angiography Chest With Contrast EXAM DATE/TIME: 05/28/2019 5:52 PM CLINICAL HISTORY: 83 years old, male; Chest pain; Additional info: Hypoxia TECHNIQUE: Imaging protocol: Axial computed tomographic angiography images of the chest with intravenous contrast using CT angiography protocol. Coronal and sagittal reformatted images were created and reviewed. 3D rendering: MIP reconstructed images were created and reviewed. Radiation optimization: All CT scans at this facility use at least one of these dose optimization techniques: automated exposure control; mA and/or kV adjustment per patient size (includes targeted exams where dose is matched to clinical indication); or iterative reconstruction. Contrast material: ISO 370; Contrast volume: 75 ml; Contrast route: IV; COMPARISON: CR PORTABLE CHEST X-RAY 05/27/2019 7:53 AM FINDINGS: Pulmonary arteries: Normal. No pulmonary emboli. Aorta: Moderate/severe atherosclerosis of the thoracic aorta without thoracic aortic aneurysm or dissection. Limited scans the upper abdomen demonstrates an infrarenal abdominal aortic aneurysm measuring 6.6 cm AP by 6.4 cm transverse. There is intraluminal thrombus and partial opacification of the aneurysm. The aneurysm is incompletely imaged on this examination. No retroperitoneal hematoma is identified. Lungs: Diffuse severe bilateral paraseptal and centrilobular pulmonary emphysema. A spiculated mass measuring 22 mm long by 17 mm transverse by 13 mm AP located in the peripheral aspect of the superior segment of the left lower lobe is consistent with pulmonary neoplasm until proven otherwise (axial images 49 through 56 of series 402). There are 2 nodules measuring 5 mm each within the right lower lobe on images 123 and 129 of series 401 and a 5 mm nodule within the right middle lobe on image 136 of 401. No pulmonary consolidation. Pleural space: There are small bilateral pleural effusions, larger on the left. Heart: Mild atherosclerosis of the coronary arteries. No cardiomegaly or pericardial effusion. Lymph nodes: Unremarkable. No enlarged lymph nodes. Bones/joints: There is degenerative spondylosis and accentuated kyphosis of the thoracic spine. No fracture or suspicious bone lesion is identified. 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 Soft tissues: Unremarkable. IMPRESSION: 1. No pulmonary arterial embolism. 2. Severe pulmonary emphysema. 3. Left lower lobe spiculated nodule measuring 22 mm x 17 mm x 13 mm, consistent with pulmonary neoplasm until proven otherwise. Highly suspicious nodule. Consider PET/CT, or tissue sampling.(Tigist et al., Fleischner Society, 2017). 4. Small right lung pulmonary nodules. 5. Large infrarenal abdominal aortic aneurysm, measuring 6.6 cm, incompletely imaged. Electronically signed by: Momo Bueno On 05/28/2019 18:19:59 PM ASSESSMENT AND PLAN: Patient is an 83-year-old male with a PMHx of Chronic hypoxic respiratory failure, COPD on 2L O2 by Venessa BREWER (on Digoxin / Xarelto), HTN, DM2, DLP and BPH who presented to the emergency room visit shortness of breath.Patient was brought into the ER by his son after he reported that he nee ded a mental health evaluation because he was feeling crazy. Upon arrival to emergency room, patient was found to be hypoxic. Patient was placed on nasal cannula oxygen and brought up to 2 L. Patients breathing had improved and mentation had improved.Patient has reported that hes been experiencing shortness of breath that has been progressive over 2 weeks. Patient also reports that hes been expressing a productive cough with yellowish sputum. Denied any blood. Patient denies any chest pain or palpitations. Patient has been compliant with his inhaled therapy, however he is unable to recall all of his inhaled therapy. Does report that he uses Albuterol and Spiriva.Patient denies any nausea, vomiting, abdominal pain, diarrhea or discomfort with urination. Patient does report constipation. . He denies any fevers in the last 2 weeks, he does report chills. Patients family has also reported that he has experienced a weight loss of approximately 20 pounds over 1-2 months. Patient has reported a poor appetite. Patient currently lives alone. Patient reports that he may require further ass istance moving forward and family is suggesting [facility] placement. acute on chronic hypoxic respiratory failure - requiring intubation and mechanical ventilation 05/28/19 managed by Pulmonary, Dr. Cagle -extubated 05/30/19, awaiting fiberoptic swallow eval to rule out aspiration 05/30/19 - due to COPD exacerbation with pseudomonas, possible fluid overload with elevated bnp s/p lasix - Patient has reported shortness of breath associated with productive cough with yellow sputum on admission - Has reported subjective chills prior to admission - CXR 05/25: Diffuse interstitial infiltrate in left lung -s/p levaquin 05/25-05/28/19 - s/p IV Solu-Medrol lost iv access, changed to po prednisone 05/28/19, changed back to iv solumedrol 05/28/19 once iv access gained - nebs scheduled. -IV zosyn started 05/28/19 - remains hypotensive s/p levophed iv gtt from 05/28/19-05/30/19, s/p Iv fluids but maintaining a MAP >60 -05/30/19 post extubation 94% on face mask per pt preference, but per now on nasal cannula Acute COPD exacerbation -with pseudomonas in sputum cx-colonization, -possible fluid overload with elevated bnp s/p lasix - Patient has reported shortness of breath associated with productive cough with yellow sputum on admission - Has reported subjective chills prior to admission - CXR 05/25: Diffuse interstitial infiltrate in left lung -s/p levaquin 05/25-05/28/19 - s/p IV Solu-Medrol lost iv access, changed to po prednisone 05/28/19, changed back to iv solumedrol 05/28/19 once iv access gained - nebs scheduled. -IV zosyn started 05/28/19 - remains hypotensive s/p levophed iv gtt from 05/28/19-05/30/19, s/p Iv fluids but maintaining a MAP >60 -05/30/19 post extubation 94% on face mask per pt preference, but per now on nasal cannula Left lung community acquired pneumonia -s/p levaquin 05/25-05/28 -sputum cx: pseudomonas pansensitive -zosyn renally dosed 05/28/19 to complete a 7 day course -slight increased in wbc 06/01/19, but due to solumedrol most likely Acute Metabolic Encephalopathy -in the setting of Pseudomonas pneumonia, hypoxia, copd exacerbation, and hyponatremia -peripheral iv line placed after it was lost on 05/28/19 -changed to iv solumedrol due to worsening hypoxia - ct chest: spiculated nodule -s/p tolvaptan and serial sodium monitoring -changed to iv zosyn and dc po prednisone due to worsening hypoxia. Hypotension -due to overdiuresis and propofol for sedation -s/p levophed iv gtt while on propofol 05/28-05/30/19 -s/p IVFluids - npo because failed fiberoptic swallow eval 05/30/19 Hyponatremia , improved to normal -s/p lasix 60mg iv 05/28/19 -s/p tolvaptan 05/28/19 Large infrarenal AAA -no signs of severe anemia -monitor blood pressure Pulmonary spiculated nodule -most likely malignancy in light of history of smoking -may have caused SIADH and hyponatremia -pt is not a candidate for biopsy and chemo/resection due to severe comorbid conditions A. 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 DLP - resume statin once safe for po intake. BPH - resume once safe for po intake. diet: npo hypoglycemic protocol failed fiberoptic swallow eval 05/31/19 and at risk of aspiration on tube feedings code status: full code disposition:pcu pt. VS, I&O, [facility] Vital Signs/I&O Vital Signs Date Time Temp Pulse Resp B/P (MAP) Pulse Ox O2 Delivery O2 Flow Rate FiO2 06/03/19 11:30 97.9 114 20 135/62 (86) 95 2.0 06/02/19 05:06 Nasal Cannula 05/30/19 10:40 28 I&O- Last 24 Hours up to 6 AM 06/03/19 06:00 Intake Total 2265 ml Output Total 675 ml Balance 1590 ml Laboratory Data 24H LABS Laboratory Tests 2 06/02/19 17:00: Bedside Glucose (Misc Panel) 136H 06/03/19 06:31: Bedside Glucose (Misc Panel) 61L 06/03/19 09:49: Immature Granulocyte % (Auto) 0.5, White Blood Count 10.8H, Red Blood Count 3.90L, Hemoglobin 11.4L, Hematocrit 36.2L, Mean Corpuscular Volume 92.8, Mean Corpuscular Hemoglobin 29.2, Mean Corpuscular Hemoglobin Concent 31.5L, Red Cell Distribution Width 14.0, Platelet Count 158, Neutrophils (%) (Auto) 78.6H, Lymphocytes (%) (Auto) 7.4L, Monocytes (%) (Auto) 12.1H, Eosinophils (%) (Auto) 1.3, Basophils (%) (Auto) 0.1, Neutrophils # (Auto) 8.5H, Lymphocytes # (Auto) 0.8L, Monocytes # (Auto) 1.3H, Eosinophils # (Auto) 0.1, Basophils # (Auto) 0.0, Nucleated Red Blood Cells % (auto) 0.0, Anion Gap 3L, Glomerular Filtration Rate > 60.0, Blood Urea Nitrogen 23H, Creatinine 0.56L, Sodium Level 136, Potassium Level 4.0, Chloride Level 93L, Carbon Dioxide Level 40H, Calcium Level 8.7L, Aspartate Amino Transf (AST/SGOT) 20, Alanine Aminotransferase (ALT/SGPT) 31, Alkaline Phosphatase 43L, Total Bilirubin 0.8, Total Protein 5.9L, Albumin 3.0L, Albumin/Globulin Ratio 1.03, Digoxin Level 1.4 06/03/19 12:05: Bedside Glucose (Misc Panel) 105 CBC/BMP Laboratory Tests 06/03/19 09:49 Red Blood Count 3.90 L, Mean Corpuscular Volume 92.8, Mean Corpuscular Hemoglobin 29.2, Mean Corpuscular Hemoglobin Concent 31.5 L, Red Cell Distribution Width 14.0, Neutrophils (%) (Auto) 78.6 H, Lymphocytes (%) (Auto) 7.4 L, Monocytes (%) (Auto) 12.1 H, Eosinophils (%) (Auto) 1.3, Basophils (%) (Auto) 0.1, Neutrophils # (Auto) 8.5 H, Lymphocytes # (Auto) 0.8 L, Monocytes # (Auto) 1.3 H, Eosinophils # (Auto) 0.1, Basophils # (Auto) 0.0, Calcium Level 8.7 L, Aspartate Amino Transf (AST/SGOT) 20, Alanine Aminotransferase (ALT/SGPT) 31, Alkaline Phosphatase 43 L, Total Bilirubin 0.8, Total Protein 5.9 L, Albumin 3.0 L Microbiology Microbiology 05/25/19 Blood Culture - Final, Complete NO GROWTH AFTER 5 DAYS 05/25/19 Blood Culture - Final, Complete NO GROWTH AFTER 5 DAYS 05/25/19 Gram Stain - Final, Complete 05/25/19 Sputum Culture - Final, Complete Pseudomonas Aeruginosa JONNA GOLD MD Jun 03, 2019 15:04
--- NOTE | 2019-06-03 15:57 | REP ---
Clinical: Shortness of breath. Comparison: 05/31/2019. Findings: Nasogastric tube extends below left hemidiaphragm. Mediastinum and cardiac silhouette are stable. Lung payan demonstrate COPD and diffuse chronic interstitial changes. Asymmetric opacity involving the left mid to lower lung zone may reflect an acute infiltrate and warrants correlation/follow-up. No obvious effusion. No pneumothorax. Skeletal structures demonstrate osteopenia and degenerative change. Impression: 1. Asymmetric left lower lobe opacities may reflect an acute infiltrate and requires correlation/follow-up. Electronically Signed by Shailesh Cain MD 06/03/2019 10:41 A
[2019-06-03 16:00] VITALS: BP 159/77
[2019-06-03] MEDS: RIVAROXABAN 10 MG TAB (XARELTO) PO SCH (18:34)
[2019-06-03 18:49] VITALS: BP 149/71
[2019-06-03] MEDS: LATANOPROST 0.005% OPHTH SOLN 2.5 ML OU SCH (21:46)
[2019-06-03] MEDS: MIRTAZAPINE 7.5MG PER 1/2 TABLET PO SCH (21:46)
[2019-06-04] VITALS (7 sets, daily range): BP systolic 117–155; BP diastolic 60–84
[2019-06-04] MEDS: LEVALBUTEROL 1.25 MG/0.5 ML CONCENTRATE NEB INH SCH ×6 (00:37→20:00)
[2019-06-04] MEDS: methylPREDNISolone INJ 125 MG/2 ML VIAL (J2930) IV SCH ×4 (01:02→17:27)
[2019-06-04] MEDS: PIPERACILLIN/TAZOBACTAM SOD 4.5 GM in D5W MINI-BAG PLUS 50 ML IV SCH ×4 (01:03→17:28)
[2019-06-04] MEDS: HumaLOG INSULIN (NovoLOG) PER UNIT SC SCH ×4 (01:40→17:27)
[2019-06-04] MEDS: PANTOPRAZOLE 40MG INJ (PROTONIX) (C9113) IV SCH (05:36)
[2019-06-04] MEDS: SYMBICORT 160/4.5MCG INHALER 6GM INH SCH ×2 (07:15→20:14)
[2019-06-04] MEDS: TIOTROPIUM INHALER/CAPSULE (SPIRIVA) INH SCH (07:15)
[2019-06-04] MEDS: NYSTATIN 500,000 U/5 ML SUSP UDC SS SCH ×4 (08:55→21:52)
[2019-06-04] MEDS: ROSUVASTATIN 10 MG TAB (CRESTOR) PO SCH (08:57)
[2019-06-04] MEDS: TAMSULOSIN 0.4 MG CAP PO SCH (08:57)
[2019-06-04] MEDS: DIGOXIN 0.125 MG TAB PO SCH (09:00)
[2019-06-04] MEDS: BRIMONIDINE 0.15% OPHTH SOLN 5 ML OU SCH ×2 (09:01→21:52)
[2019-06-04] MEDS: MONTELUKAST 10 MG TAB PO SCH (09:01)
--- NOTE | 2019-06-04 15:56 | IPNPDOC ---
Text Note Date of Service The patient was seen on 06/04/19. NOTE SUBJECTIVE: States he feels well, denies any shortness of breath. No chest pain, fevers/chills. He does not still having increased secretions from his mouth which he is self-suctioning with yankeur. Pt has a nasogastric tube, and tube feedings since 05/31/19 due to inability to protect his airway with signs of aspiration. OBJECTIVE: PHYSICAL EXAMINATION: - General: central line. AAOx2, NG tube - HEENT: no JVD, MMM - CVS: +S1S2 irregularly irregular - Lungs: Good air entry bilaterally, no ronchi or wheezing appreciated. - Abdomen: Soft, Non-distended, Non-tender, bowel sounds present. no rebound or guarding - Extremities: No calf tenderness no pitting edema - Neuro: No focal motor or sensory deficit - Skin: multiple ecchymotic areas on b/l upper and lower extremities - Neuro: AAOx2 person and place, no facial asymmetry, fluent speech ASSESSMENT AND PLAN: Patient is an 83-year-old male with a PMHx of Chronic hypoxic respiratory failure, COPD on 2L O2 by Venessa BREWER (on Digoxin / Xarelto), HTN, DM2, DLP and BPH who presented to the emergency room visit shortness of breath. Patient was brought into the ER by his son after he reported that he needed a mental health evaluation because he was feeling crazy. Upon arrival to emergency room, patient was found to be hypoxic. Patient was placed on nasal cannula oxygen and brought up to 2 L. Patients breathing had improved and mentation had improved.Patient has reported that hes been experiencing shortness of breath that has been progressive over 2 weeks. Patient also reports that hes been expressing a productive cough with yellowish sputum. Denied any blood. Patient denies any chest pain or palpitations. Patient has been compliant with his inhaled therapy, however he is unable to recall all of his inhaled therapy. Does report that he uses Albuterol and Spiriva. Patient denies any nausea, vomiting, abdominal pain, diarrhea or discomfort with urination. Patient does report constipation. . He denies any fevers in the last 2 weeks, he does report chills. Patients family has also reported that he has experienced a weight loss of approximately 20 pounds over 1-2 months. Patient has reported a poor appetite. Patient currently lives alone. Patient reports that he may require further assistance moving forward and family is suggesting [facility] placement. acute on chronic hypoxic respiratory failure 2/2 COPD exacerbation. -intubated 05/28 and extubated 05/30. -Awaiting FEES scope to rule out aspiration, Speech therapy note appreciated. - CXR 05/25: Diffuse interstitial infiltrate in left lung -s/p levaquin 05/25-05/28/19, changed to Zosyn 05/28 - . - s/p IV Solu-Medrol lost iv access, changed to po prednisone 05/28/19, changed back to iv solumedrol 05/28/19 once iv access gained -CXR 06/03 with Asymmetric left lower lobe opacities may reflect an acute infiltrate and requires correlation/follow-up. Possible chronic aspiration, consider d/c antibiotics after FEES scope to rule out chronic aspiration. Acute COPD exacerbation -Continue tiotropium, symbicort, singulair. -Solumedrol 60mg q6 as can not take PO until speech has cleared him. -IV zosyn started 05/28/19 -extubated 05/30, maintaining saturations on 2L NC today. Will monitor Left lung community acquired pneumonia -s/p levaquin 05/25-05/28 -sputum cx: pseudomonas pansensitive -zosyn renally dosed 05/28/19 to complete a 7 day course. D/C tomorrow 06/05. -slight increased in wbc 06/01/19, but due to solumedrol most likely Acute Metabolic Encephalopathy: improved, stable. - ct chest: spiculated nodule Hypotension -due to overdiuresis and propofol for sedation -s/p levophed iv gtt while on propofol 05/28-05/30/19 -s/p IVFluids - npo because failed fiberoptic swallow eval 05/30/19. Reattempt 06/05. Hyponatremia , improved to normal -s/p lasix 60mg iv 05/28/19 -s/p tolvaptan 05/28/19 Large infrarenal AAA -no signs of severe anemia -monitor blood pressure Pulmonary spiculated nodule -most likely malignancy in light of history of smoking -may have caused SIADH and hyponatremia -pt is not a candidate for biopsy and chemo/resection due to severe comorbid conditions A. 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 DLP - resume statin once safe for po intake. BPH - resume once safe for po intake. diet: npo hypoglycemic protocol failed fiberoptic swallow eval 05/31/19 and at risk of aspiration on tube feedings. Requested re-evaluation by speech therapy prior to PEG, will attempt to get another fiberoptic swallow eval. code status: full code disposition:pcu pt. Laboratory Tests 06/03/19 09:49 Red Blood Count 3.90 L, Mean Corpuscular Volume 92.8, Mean Corpuscular Hemoglobin 29.2, Mean Corpuscular Hemoglobin Concent 31.5 L, Red Cell Distribution Width 14.0, Neutrophils (%) (Auto) 78.6 H, Lymphocytes (%) (Auto) 7.4 L, Monocytes (%) (Auto) 12.1 H, Eosinophils (%) (Auto) 1.3, Basophils (%) (Auto) 0.1, Neutrophils # (Auto) 8.5 H, Lymphocytes # (Auto) 0.8 L, Monocytes # (Auto) 1.3 H, Eosinophils # (Auto) 0.1, Basophils # (Auto) 0.0, Calcium Level 8.7 L, Aspartate Amino Transf (AST/SGOT) 20, Alanine Aminotransferase (ALT/SGPT) 31, Alkaline Phosphatase 43 L, Total Bilirubin 0.8, Total Protein 5.9 L, Albumin 3.0 L Vital Signs Date Time Temp Pulse Resp B/P (MAP) Pulse Ox O2 Delivery O2 Flow Rate FiO2 06/04/19 12:00 2.0 06/04/19 12:00 98.5 98 18 123/62 (82) 94 2.0 06/04/19 09:00 91 06/04/19 08:00 98.3 91 20 138/63 (88) 97 2.0 06/04/19 08:00 2.0 06/04/19 05:19 98.1 107 20 137/71 (93) 94 2.0 06/04/19 04:00 2.0 06/04/19 00:00 98.3 102 20 155/73 (100) 96 2.0 06/04/19 00:00 2.0 06/03/19 19:56 2.0 06/03/19 18:49 97.9 108 20 149/71 (97) 94 2.0 06/03/19 16:00 98.0 110 20 159/77 (104) 94 2.0 06/03/19 16:00 2.0 Intake & Output 06/04/19 05:59 Intake Total 1725 ml Output Total 300 ml Balance 1425 ml Laboratory Tests 06/03/19 17:20: Bedside Glucose (Misc Panel) 134H 06/04/19 01:11: Bedside Glucose (Misc Panel) 149H 06/04/19 06:57: Bedside Glucose (Misc Panel) 156H 06/04/19 13:00: Bedside Glucose (Misc Panel) 128H Microbiology 05/25/19 Blood Culture - Final, Complete NO GROWTH AFTER 5 DAYS 05/25/19 Blood Culture - Final, Complete NO GROWTH AFTER 5 DAYS 05/25/19 Gram Stain - Final, Complete 05/25/19 Sputum Culture - Final, Complete Pseudomonas Aeruginosa Current Medications Medications (Trade) Dose Ordered Sig/Tong Route PRN Reason Start Time Stop Time Status Last Admin Dose Admin Acetaminophen (Tylenol Tab) 650 mg Q4H PRN PO PAIN OR FEVER 05/25/19 17:15 06/03/19 21:47 650 MG Brimonidine Tartrate (Alphagan P 0.15%) 1 drop BID OU 05/25/19 21:00 06/04/19 09:01 1 DROP Budesonide/ Formoterol Fumarate (Symbicort 160/ 4.5mcg) 2 puff RBID INH 05/25/19 20:00 06/04/19 07:15 2 PUFF Calcium Carbonate (Tums) 1,000 mg Q8H PRN PO Indigestion 05/26/19 23:15 05/27/19 00:25 1,000 MG Digoxin (Lanoxin) 0.125 mg DAILY PO 05/26/19 09:00 06/04/19 09:00 0.125 MG Insulin Human Lispro (HumaLOG INSULIN) SEE PROTOCOL TABLE Q6H SC 05/29/19 18:00 06/04/19 13:02 2 UNITS Latanoprost (Xalatan 0.005% Op Soln) 1 drop QHS OU 05/25/19 21:00 06/03/19 21:46 1 DROP Levalbuterol HCl (Xopenex Neb) 1.25 mg RQ4H INH 05/28/19 20:00 06/04/19 11:46 1.25 MG Methylprednisolone (SOLUmedrol) 60 mg Q6H IV 06/03/19 12:00 06/04/19 13:01 60 MG Mirtazapine (Remeron) 7.5 mg QHS PO 05/28/19 21:00 06/03/19 21:46 7.5 MG Montelukast Sodium (Singulair) 10 mg DAILY PO 05/26/19 09:00 06/04/19 09:01 10 MG Nystatin (Mycostatin) 5 ml QID SS 05/28/19 11:00 06/04/19 13:02 5 ML Oxymetazoline HCl (Afrin) 2 spray ONCE PRN NA NEEDED FOR DISCOMFORT 05/30/19 06:00 06/01/19 09:16 2 SPRAY Pantoprazole Sodium (Protonix) 40 mg DAILY@0600 IV 05/29/19 06:00 06/04/19 05:36 40 MG Piperacillin Sod/ Tazobactam Sod 4.5 gm/Dextrose 50 ml @ 50 mls/hr Q6H IV 05/28/19 18:00 06/04/19 13:01 50 MLS/HR Rivaroxaban (Xarelto) 10 mg DAILY@18 PO 06/01/19 18:00 06/03/19 18:34 10 MG Rosuvastatin Calcium (Crestor) 5 mg DAILY PO 05/26/19 09:00 06/04/19 08:57 5 MG Tamsulosin HCl (Flomax) 0.4 mg DAILY PO 05/26/19 09:00 06/04/19 08:57 0.4 MG Tiotropium [place] (Spiriva Handihaler) 1 inhalation DAILY@0800 INH 05/26/19 08:00 06/04/19 07:15 1 INHALATION VS,Fishbone, I+O VS, Fishbone, I+O Vital Signs Date Time Temp Pulse Resp B/P (MAP) Pulse Ox O2 Delivery O2 Flow Rate FiO2 06/04/19 12:00 2.0 06/04/19 12:00 98.5 98 18 123/62 (82) 94 06/02/19 05:06 Nasal Cannula 05/30/19 10:40 28 I&O- Last 24 Hours up to 6 AM 06/04/19 05:59 Intake Total 1725 ml Output Total 300 ml Balance 1425 ml EB BRADSHAW MD Jun 04, 2019 15:56
[2019-06-04] MEDS: RIVAROXABAN 10 MG TAB (XARELTO) PO SCH (17:27)
[2019-06-04] MEDS: LATANOPROST 0.005% OPHTH SOLN 2.5 ML OU SCH (21:52)
[2019-06-04] MEDS: MIRTAZAPINE 7.5MG PER 1/2 TABLET PO SCH (21:52)
[2019-06-05] VITALS (21 sets, daily range): BP systolic 91–176; BP diastolic 51–85
[2019-06-05] MEDS: HumaLOG INSULIN (NovoLOG) PER UNIT SC SCH ×4 (00:49→18:00)
[2019-06-05] MEDS: methylPREDNISolone INJ 125 MG/2 ML VIAL (J2930) IV SCH ×4 (01:13→18:27)
[2019-06-05] MEDS: PIPERACILLIN/TAZOBACTAM SOD 4.5 GM in D5W MINI-BAG PLUS 50 ML IV SCH ×4 (01:13→20:06)
[2019-06-05] MEDS: LEVALBUTEROL 1.25 MG/0.5 ML CONCENTRATE NEB INH SCH ×5 (02:59→15:23)
[2019-06-05 05:49] LABS: ABG BASE EXCESS 9.6 (-2.0-2.0); ABG O2 SATURATION 47.9 % (95.0-99.0); ABG PARTIAL PRESSURE CO2 81.8 mmHg (35.0-45.0); ABG STANDARD HCO3 32.2 MEQ/L (22.0-26.0); ABG TOTAL CO2 41.5 MEQ/L (23.0-31.0); ABG pH (ARTERIAL) 7.296 UNITS (7.350-7.450)
[2019-06-05 05:50] LABS: ABG PARTIAL PRESSURE O2 30.7 mmHg (75.0-100.0)
[2019-06-05 06:18] LABS: HEMATOCRIT 36.4 % (42.0-52.0); HEMOGLOBIN 11.4 g/dl (13.5-17.5); MEAN CORPUSCULAR HEMOGLOBIN 28.8 pg (27.0-33.0); MEAN CORPUSCULAR HGB CONC 31.3 g/dl (32.0-36.5); MEAN CORPUSCULAR VOLUME 91.9 fl (80.0-96.0); PLATELET COUNT, AUTOMATED 170 10^3/uL (150-450); RED BLOOD COUNT 3.96 10^6/uL (4.30-6.10); WHITE BLOOD COUNT 9.5 10^3/uL (4.0-10.0)
[2019-06-05] MEDS: PANTOPRAZOLE 40MG INJ (PROTONIX) (C9113) IV SCH (06:33)
[2019-06-05 06:48] LABS: ALT/SGPT 30 U/L (12-78); BILIRUBIN,TOTAL 0.5 MG/DL (0.2-1.0); BLOOD UREA NITROGEN 21 MG/DL (7-18); CALCIUM LEVEL 8.7 MG/DL (8.8-10.2); CARBON DIOXIDE LEVEL 38 MEQ/L (21-32); CHLORIDE LEVEL 96 MEQ/L (98-107); CREATININE FOR GFR 0.38 MG/DL (0.70-1.30); GLOMERULAR FILTRATION RATE > 60.0 (>35); GLUCOSE, FASTING 107 MG/DL (70-100); SODIUM LEVEL 137 MEQ/L (136-145); TOTAL PROTEIN 6.4 GM/DL (6.4-8.2)
[2019-06-05] MEDS ORDERED: OXYMETAZOLINE NASAL SPRAY (AFRIN) PRN (07:00)
[2019-06-05] MEDS: TIOTROPIUM INHALER/CAPSULE (SPIRIVA) INH SCH (07:58)
[2019-06-05] MEDS: SYMBICORT 160/4.5MCG INHALER 6GM INH SCH (07:58)
[2019-06-05 08:43] LABS: ABG BASE EXCESS 12.2 (-2.0-2.0); ABG HCO3 40.4 MEQ/L (22.0-26.0); ABG O2 SATURATION 78.8 % (95.0-99.0); ABG STANDARD HCO3 35.6 MEQ/L (22.0-26.0); ABG TOTAL CO2 42.6 MEQ/L (23.0-31.0); ABG pH (ARTERIAL) 7.363 UNITS (7.350-7.450)
[2019-06-05 08:44] LABS: ABG PARTIAL PRESSURE CO2 72.6 mmHg (35.0-45.0); ABG PARTIAL PRESSURE O2 45.9 mmHg (75.0-100.0)
[2019-06-05] MEDS: NYSTATIN 500,000 U/5 ML SUSP UDC SS SCH ×2 (09:26→12:45)
[2019-06-05] MEDS: DIGOXIN 0.125 MG TAB PO SCH (09:27)
[2019-06-05] MEDS: ROSUVASTATIN 10 MG TAB (CRESTOR) PO SCH (09:27)
[2019-06-05] MEDS: TAMSULOSIN 0.4 MG CAP PO SCH (09:27)
[2019-06-05] MEDS: MONTELUKAST 10 MG TAB PO SCH (09:27)
[2019-06-05] MEDS: BRIMONIDINE 0.15% OPHTH SOLN 5 ML OU SCH ×2 (09:28→21:06)
[2019-06-05] MEDS ORDERED: SLF 3 ML SYR IV PRN (11:30)
[2019-06-05 12:10] LABS: ABG BASE EXCESS 10.2 (-2.0-2.0); ABG HCO3 39.3 MEQ/L (22.0-26.0); ABG O2 SATURATION 83.4 % (95.0-99.0); ABG PARTIAL PRESSURE O2 53.6 mmHg (75.0-100.0); ABG STANDARD HCO3 33.6 MEQ/L (22.0-26.0); ABG TOTAL CO2 41.7 MEQ/L (23.0-31.0); ABG pH (ARTERIAL) 7.305 UNITS (7.350-7.450)
[2019-06-05 12:11] LABS: ABG PARTIAL PRESSURE CO2 80.7 mmHg (35.0-45.0)
[2019-06-05] MEDS ORDERED: SLF 3 ML SYR IV SCH (14:00)
[2019-06-05 15:47] LABS: ABG BASE EXCESS 10.4 (-2.0-2.0); ABG HCO3 40.4 MEQ/L (22.0-26.0); ABG O2 SATURATION 82.3 % (95.0-99.0); ABG STANDARD HCO3 33.8 MEQ/L (22.0-26.0); ABG TOTAL CO2 43.2 MEQ/L (23.0-31.0)
--- NOTE | 2019-06-05 16:14 | IPNPDOC ---
Date Seen The patient was seen on 06/05/19. Progress Note SUBJECTIVE: Patient is a 83 yo male who was admitted for copd exacerbation 2/2 pna - currently on abx but has been having a lot of sputum production and worsening (decreasing) ph and (increasing) pco2 level . OBJECTIVE PHYSICAL EXAMINATION: VITAL SIGNS: Please see below. Physical exam Gen: NAD, healthy appearing , HEENT: normocephalic, atraumatic, no discharge from ears or nose, no oropharyngeal erythema or exudate, neck is supple, no lymphadenopathy, trachea midline CVS: RRR, normal S1n S2, no murmur, rubs, or gallops, no edema, no jvd Resp: moderately diffused rhonchi b/l, lots of sputum production , but no wheezes or crackles Abd : soft nontender, normal bowel sounds, no rebound tenderness or guarding MSK: no swelling, full range of motion, strength 5/5 - generalized weakness Neuro: no confusion, no focal deficit Psych: normal mood and affect LABORATORY DATA, IMAGING STUDIES, MICROBIOLOGY: Please see below. 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 -intubated 05/28 and extubated 05/30. -CXR 05/25: Diffuse interstitial infiltrate in left lung -s/p levaquin 05/25-05/28/19, changed to Zosyn 05/28 - -CXR 06/03 with Asymmetric left lower lobe opacities may reflect an acute infil trate and - on methylprednisolone 60mg q6h - will change to q8h - diffuse rhonchi and copious amount of sputum production - chest pt -c/w zosyn for now - already received >7 days of abx , but given ?new opacity on 06/03, will /w with abx for now , will add vanco for mrsa coverage since pt was already in hospital >48hours - will resent sputum and mrsa test -abg - shows worsening acute on chronic hypoxic and hypercapnic resp failure -transfer to icu -currently on 3 L nc -Dr. Pineda contacted for bipap mgt - will see pt and place order -hold tube feed for now Hypotension- resolved -s/p levophed iv gtt while on propofol 05/28-05/30/19 -s/p IVFluids A. fib - rate controlled on digoxin -beta griselda could not be used due to hypotension -c/w full anticoagulation with Xarelto DM2 - Patient is reported that he has a history of diabetes but is currently not on any medications - reviewd A1c5.7 -episode of hypoglycemia 05/30/19 60 due to npo status , s/p d50 per hypoglycemic protocol -tube feedings discontinued 05/30/19 after extubation, but NG tube placed 05/31/19 due to aspiration risk after failing fiberoptic swallow eval. HLD - resume statin once safe for po intake. BPH - resume once safe for po intake. diet//funtional status generalized weakness npo - due to aspiration risks hypoglycemic protocol failed fiberoptic swallow eval 05/31/19 and at risk of aspiration on tube f eedings. getting OT will likely need peg tube placement holding ngt for now - pt will be placed on bipap Large infrarenal AAA -no signs of severe anemia -monitor blood pressure Pulmonary spiculated nodule -most likely malignancy in light of history of smoking -pt is not a candidate for biopsy and chemo/resection due to severe comorbid conditions code status: full code - spoke with zeferino Anand today- [phone] - still wants patient to be full code disposition:pcu pt. VS, I&O, 24H, [facility] Vital Signs/I&O Vital Signs Date Time Temp Pulse Resp B/P (MAP) Pulse Ox O2 Delivery O2 Flow Rate FiO2 06/05/19 12:00 97.4 111 18 124/64 (84) 95 2.0 06/05/19 02:59 Nasal Cannula 05/30/19 10:40 28 I&O- Last 24 Hours up to 6 AM 06/05/19 06:00 Intake Total 1430 ml Output Total 900 ml Balance 530 ml Laboratory Data 24H LABS Laboratory Tests 2 06/04/19 17:18: Bedside Glucose (Misc Panel) 136H 06/05/19 00:44: Bedside Glucose (Misc Panel) 123H 06/05/19 05:29: Nucleated Red Blood Cells % (auto) 0.0, Anion Gap 3L, Glomerular Filtration Rate > 60.0, Blood Urea Nitrogen 21H, Creatinine 0.38L, Sodium Level 137, Potassium Level 4.0, Chloride Level 96L, Carbon Dioxide Level 38H, Calcium Level 8.7L, Aspartate Amino Transf (AST/SGOT) 18, Alanine Aminotransferase (ALT/SGPT) 30, Alkaline Phosphatase 42L, Total Bilirubin 0.5, Total Protein 6.4, Albumin 3.0L, Albumin/Globulin Ratio 0.88L 06/05/19 05:41: Blood Gas Bicarbonate Standard 32.2H, Arterial Blood pH 7.296L, Arterial Blood Partial Pressure CO2 81.8*H, Arterial Blood Partial Pressure O2 30.7*L, Arterial Blood Total CO2 41.5H, Arterial Blood HCO3 39.0H, Arterial Blood Base Excess 9.6H, Arterial Blood Oxygen Saturation 47.9L 06/05/19 07:44: Bedside Glucose (Misc Panel) 119H 06/05/19 08:26: Blood Gas Bicarbonate Standard 35.6H, Arterial Blood pH 7.363, Arterial Blood Partial Pressure CO2 72.6*H, Arterial Blood Partial Pressure O2 45.9*L, Arterial Blood Total CO2 42.6H, Arterial Blood HCO3 40.4H, Arterial Blood Base Excess 12.2H, Arterial Blood Oxygen Saturation 78.8L 06/05/19 11:56: Blood Gas Bicarbonate Standard 33.6H, Arterial Blood pH 7.305L, Arterial Blood Partial Pressure CO2 80.7*H, Arterial Blood Partial Pressure O2 53.6L, Arterial Blood Total CO2 41.7H, Arterial Blood HCO3 39.3H, Arterial Blood Base Excess 10.2H, Arterial Blood Oxygen Saturation 83.4L 06/05/19 12:03: Bedside Glucose (Misc Panel) 148H 06/05/19 15:28: Blood Gas Bicarbonate Standard 33.8H, Arterial Blood pH 7.270L, Arterial Blood Partial Pressure CO2 90.0*H, Arterial Blood Partial Pressure O2 55.0L, Arterial Blood Total CO2 43.2H, Arterial Blood HCO3 40.4H, Arterial Blood Base Excess 10.4H, Arterial Blood Oxygen Saturation 82.3L CBC/BMP Laboratory Tests 06/05/19 05:29 Red Blood Count 3.96 L, Mean Corpuscular Volume 91.9, Mean Corpuscular Hemoglobin 28.8, Mean Corpuscular Hemoglobin Concent 31.3 L, Red Cell Distribution Width 13.9, Calcium Level 8.7 L, Aspartate Amino Transf (AST/SGOT) 18, Alanine Aminotransferase (ALT/SGPT) 30, Alkaline Phosphatase 42 L, Total Bilirubin 0.5, Total Protein 6.4, Albumin 3.0 L SAMAN CAMPOS MD Jun 05, 2019 16:14
[2019-06-05] MEDS ORDERED: SUCCINYLCHOLINE INJ 200 MG/10 ML VIAL (J0330) As Ordered ONE (16:49)
[2019-06-05] MEDS ORDERED: ETOMIDATE INJ 20MG/10ML VIAL As Ordered ONE (16:49)
--- NOTE | 2019-06-05 17:26 | REP ---
Portable chest x-ray: Single view. History: Intubation. Comparison study: June 03, 2019. Findings: There is extensive pleural opacity in the left hemithorax consistent with pleural effusion. Perihilar infiltrate is difficult to exclude. An endotracheal tube is seen in good position at the level of the transverse aorta. An NG tube enters left upper quadrant of the abdomen terminating in the gastric fundus. The right lung appears clear. Impression: Endotracheal tube in good position. Electronically Signed by Mukesh Argueta MD 06/05/2019 05:18 P
[2019-06-05] MEDS ORDERED: ETOMIDATE INJ 20MG/10ML VIAL IV STA (17:28)
[2019-06-05] MEDS ORDERED: SUCCINYLCHOLINE INJ 200 MG/10 ML VIAL (J0330) IV STA (17:28)
[2019-06-05] MEDS ORDERED: NS 1,000 ML IV ONE ×2 (17:30→20:00)
[2019-06-05] MEDS ORDERED: MORPHINE 4 MG/ML 1ML VIAL/SYRINGE (J2270) IV PRN (17:30)
[2019-06-05] MEDS: MIDAZOLAM INJ 2 MG/2 ML VIAL (J2250) IV PRN ×5 (17:48→23:28)
--- NOTE | 2019-06-05 18:39 | RO ---
DATE OF PROCEDURE: 06/05/2019 PROCEDURE: Endotracheal tube intubation. PROCEDURALIST: Dr. Pineda. ROUTE CDL DRIVER: No assistants. PROCEDURE DIAGNOSIS: Respiratory arrest. POSTPROCEDURE DIAGNOSIS: Respiratory arrest. DESCRIPTION OF PROCEDURE: The patient was a full code. The patient had ineffective ventilation. He was bagged and he was unconscious. Even with bagging. We had minimal oxygen saturations into the high 70s, low 80s therefore he was intubated. DESCRIPTION OF INTUBATION: RSI was used for intubation. The patient was placed in the sniffing position. A pre oxygenation was performed with bag mask ventilation. After correct positioning Etomidate was administered followed directly by succinylcholine. I then used the GlideScope with #3 blade to view the posterior pharynx. There was a grade 1 view despite it being an anterior airway. The 8.0 endotracheal tube passed fairly easily through the vocal cords there were no vocal cord lesions. No posterior pharyngeal lesions. The stylus was removed and the placement of the endotracheal tube was confirmed with auscultation, end-tidal CO2 monitoring, and chest x-ray. Chest x-ray was slightly deep therefore this was moved back to 21 cm at the lip. After intubation, oxygen saturations continued to climb to 100% then FIO2 was decreased and the patient was placed on mechanical ventilation. There is no postop hypotension as the patient was treated with IV fluids during the time of intubation. There were no observed complications. MTDD
--- NOTE | 2019-06-05 18:42 | CCN ---
DATE: 06/05/2019 CRITICAL CARE TIME: One hour and 32 minutes. I was called to attend Mr. Petty for acute hypoxic hypercarbic respiratory failure. Expecting to place the patient on bilevel positive airway pressure (BiPAP) as I arrived to the intensive care unit (ICU), the patient presented shortly after to the ICU and had obvious difficulty with ventilation and then became unresponsive, unable to ventilate. He was bag mask ventilated and intubated as he had recently confirmed advanced directives through his son who is the healthcare proxy, Gideon. He was therefore intubated and placed on mechanical ventilation. On review of the chart, the patient presented and was admitted on 05/25/2019 for a chronic obstructive pulmonary disease (COPD) exacerbation presenting with cough and sputum. He was intubated on 05/29/2019, extubated 05/30/2019 after a similar episode. His sputum grew Pseudomonas. However, the patient remained on one antibiotic in the form of Zosyn. He has a known history of chronic atrial fibrillation on anticoagulation. Prior to intubation, I noticed tongue fasciculations. These were new according to the primary physician who was attending him that day, Dr. Dickens. Also, it was noted that the patient had significant pulmonary cachexia, significant muscle wasting, chronic wounds. According to Dr. Dickens, the patient had not been doing well all day and had worsening hypercarbic respiratory failure, hence the reason I was called to initiate bilevel therapy. Please see Dr. Cagle's note for past medical history which includes Gold stage IV COPD, atrial fibrillation, hypertension, diabetes, dyslipidemia, and benign prostatic hypertrophy (BPH). PHYSICAL EXAMINATION: Temperature is 97.4, pulse currently is irregular with a heart rate of 111 with a respiratory rate of 14. Blood pressure is 135/90 and this after a 600 mL bolus during the time of intubation. GENERAL: The patient was unresponsive to any stimuli prior to intubation. After intubation, the patient had coughing and would move extremities independently. HEENT: Sclerae clear. Mucous membranes are moist. Tongue midline. No longer fasciculations after intubation. However, the patient did receive succinylcholine as part of his rapid sequence intubation. Mallampati one airway. Neck is supple. There is elevated jugular venous pulse (JVP). Therefore, IV fluids were stopped. There is a strong carotid pulse, although variable in intensity. LYMPHATICS: No cervical, supraclavicular or axillary adenopathy. CARDIAC: Irregularly irregular without murmur, rub or gallop. Point of maximal impulse (PMI) is difficult to palpate due to body habitus. He has a chest wall extreme increase in anteroposterior (AP) diameter, hyperinflation, a scaphoid abdomen. PULMONARY: Decreased breath sounds throughout without rales, rhonchi or wheezes. No dullness to percussion. No accessory muscle use. ABDOMEN: Scaphoid, soft, nontender, nondistended with prominent aortic pulsations. EXTREMITIES: Multiple wounds. He has bilateral dependent heel ulcerations, currently with Tegaderm over them. He has necrotic toe ulcerations at the tips of his toes. Dorsalis pedis, posterior tibialis pulses are difficult to palpate. There is no cyanosis. SKIN: Currently no mottling. MUSCULOSKELETAL: Severe muscle wasting as mentioned above. No evidence of tremor or seizure activity. NEUROLOGIC: As mentioned above, pupils are reactive to light. There were some tongue fasciculations that have stopped. There is no evidence of unilateral weakness or tremor. LABORATORY EVALUATION: Shows a sodium of 137, potassium 4.0, chloride 96, bicarbonate of 38, BUN of 21, creatinine of 0.38, glucose of 107, rechecked at bedside was 135. Albumin of 3.0. White blood cell count of 9.5, hemoglobin 11.4 with a platelet count of 170. Arterial blood gas this morning shows a pH of 7.30, pCO2 of 82, pO2 of 31. This was again repeated at 11:56 showing persistent worsening hypercarbia but improved hypoxia 7.31, pCO2 of 81, pAO2 of 54. Again repeated at 1528 showing a pH of 727, pCO2 of 90 and a pAO2 of 55. Sputum culture from 05/25/2019 showed Pseudomonas. I did review the CT angiogram that was performed on 05/28/2019 which shows advanced end-stage COPD, diffuse emphysema throughout both lung payan, bilateral pleural effusions without new infiltrate. Chest x-ray that was obtained post intubation as remarked above. The endotracheal tube was slightly deep and this was moved back to 21 cm at the lip. There does appear to be a left-sided infiltrate, although no dense consolidation. There is blunting of the left costophrenic angle, hyperinflation of the lungs as consistent with his known emphysema. IMPRESSION: 1. Acute hypoxic hypercarbic respiratory failure with likely inability to compensate or handle secretions. Overall poor prognosis. The patient has very severe end-stage lung disease. I am not optimistic he will be able to be successfully extubated. 2. History of Pseudomonal sputum culture. He has been on Zosyn. He has not been on dual therapy, therefore I have added levofloxacin despite his history of delirium, so therefore he will have dual Pseudomonal coverage. 3. Severe protein malnourishment, pulmonary cachexia. Creatinine is only 0.38 reflecting the low muscle mass. 4. Multiple wounds. No obvious infection. We will ensure skin protection as much as possible. However, given the severe malnourishment, the fact that the patient has not had any successful nourishment while in the hospital, has been attempted tube feeds without success, it makes wound healing unlikely. 3. Atrial fibrillation. We will continue digoxin. 4. Hypertension. At this point in time, we will hold antihypertensive therapy. 5. History of benign prostatic hypertrophy (BPH). I am holding his Flomax due to see where his blood pressure settles out. This may need to be reinitiated. [place] is in place. 6. Dyslipidemia. I do not see an indication to continue statin therapy while the patient is on mechanical ventilation. 7. Diabetes. Blood sugar is adequate. We will attempt to initiate tube feeds in the morning. 8. Deep vein thrombosis (DVT) prophylaxis with Lovenox. 9. Gastrointestinal (GI) prophylaxis with Protonix. Overall, a very guarded prognosis. I am awaiting arrival of the family. Dr. Dickens has spoken to the family around the time of intubation. They had wanted all forms of resuscitation done at this point in time. Currently there is no one present at the hospital now to discuss the ongoing care. However, there is an extremely poor prognosis and I do not expect the patient to survive over the next six months, he may not survive this hospitalization, and may not be able to be successfully extubated. MADONNA
[2019-06-05 18:47] LABS: ABG BASE EXCESS 8.5 (-2.0-2.0); ABG HCO3 35.5 MEQ/L (22.0-26.0); ABG O2 LITER FLOW 50; ABG O2 SATURATION 98.7 % (95.0-99.0); ABG PARTIAL PRESSURE O2 143.3 mmHg (75.0-100.0); ABG PULSE OX 97; ABG STANDARD HCO3 32.3 MEQ/L (22.0-26.0); ABG TOTAL CO2 37.5 MEQ/L (23.0-31.0)
[2019-06-05 18:49] LABS: ABG PARTIAL PRESSURE CO2 62.9 mmHg (35.0-45.0)
[2019-06-05] MEDS: ALBUTEROL SULFATE 2.5 MG/0.5 ML INH NEB SOLN NEB SCH ×2 (19:24→23:17)
[2019-06-05] MEDS: CHLORHEXIDINE GLUCONATE 0.12 % 15ML UDC (PERIDEX ORAL RINSE) MT SCH (20:05)
[2019-06-05] MEDS: LevoFLOXacin IV 500 MG in APPROPRIATE DILUENT 1 EA IV SCH (21:03)
[2019-06-05] MEDS: LATANOPROST 0.005% OPHTH SOLN 2.5 ML OU SCH (21:06)
[2019-06-06] VITALS (20 sets, daily range): BP systolic 84–132; BP diastolic 47–65; O2SAT 100
[2019-06-06] MEDS: MIDAZOLAM INJ 2 MG/2 ML VIAL (J2250) IV PRN ×12 (00:04→23:28)
[2019-06-06] MEDS: PIPERACILLIN/TAZOBACTAM SOD 4.5 GM in D5W MINI-BAG PLUS 50 ML IV SCH ×4 (00:05→17:56)
[2019-06-06] MEDS: methylPREDNISolone INJ 125 MG/2 ML VIAL (J2930) IV SCH ×4 (00:05→17:56)
[2019-06-06] MEDS: HumaLOG INSULIN (NovoLOG) PER UNIT SC SCH ×4 (00:29→17:56)
[2019-06-06] MEDS: ALBUTEROL SULFATE 2.5 MG/0.5 ML INH NEB SOLN NEB SCH ×5 (04:07→20:15)
[2019-06-06] MEDS: PANTOPRAZOLE 40MG INJ (PROTONIX) (C9113) IV SCH (05:35)
[2019-06-06 07:01] LABS: ABG BASE EXCESS 12.8 (-2.0-2.0); ABG HCO3 39.2 MEQ/L (22.0-26.0); ABG O2 SATURATION 99.1 % (95.0-99.0); ABG PARTIAL PRESSURE CO2 60.8 mmHg (35.0-45.0); ABG PARTIAL PRESSURE O2 142.2 mmHg (75.0-100.0); ABG STANDARD HCO3 36.6 MEQ/L (22.0-26.0); ABG pH (ARTERIAL) 7.427 UNITS (7.350-7.450)
[2019-06-06 07:27] LABS: HEMATOCRIT 30.7 % (42.0-52.0); HEMOGLOBIN 9.6 g/dl (13.5-17.5); MEAN CORPUSCULAR HEMOGLOBIN 29.8 pg (27.0-33.0); MEAN CORPUSCULAR HGB CONC 31.3 g/dl (32.0-36.5); MEAN CORPUSCULAR VOLUME 95.3 fl (80.0-96.0); PLATELET COUNT, AUTOMATED 133 10^3/uL (150-450); RED BLOOD COUNT 3.22 10^6/uL (4.30-6.10)
--- NOTE | 2019-06-06 07:39 | REP ---
Portable chest, 06:50 a.m., single AP view with the patient semi upright: Comparisons are the chest CT of 05/28/2019 and portable chest 06/05/2019. There is opacification of the left hemithorax , compatible with infiltrate/effusion/combination, unchanged. Right lung is clear except that the right costophrenic angle is excluded. Cardiac size is normal. There is an endotracheal tube terminates satisfactorily at the level of the aortic arch. There is a nasogastric tube terminating satisfactorily in the upper abdomen. Impression: There is no interval change. Electronically Signed by Parminder Rodriguez MD 06/06/2019 07:30 A
[2019-06-06 07:45] LABS: BLOOD UREA NITROGEN 21 MG/DL (7-18); CALCIUM LEVEL 7.9 MG/DL (8.8-10.2); CARBON DIOXIDE LEVEL 38 MEQ/L (21-32); CHLORIDE LEVEL 99 MEQ/L (98-107); CREATININE FOR GFR 0.36 MG/DL (0.70-1.30); GLOMERULAR FILTRATION RATE > 60.0 (>35); GLUCOSE, FASTING 90 MG/DL (70-100); POTASSIUM SERUM 3.8 MEQ/L (3.5-5.1); SODIUM LEVEL 141 MEQ/L (136-145)
[2019-06-06] MEDS: ENOXAPARIN 40 MG/0.4 ML SYRINGE (J1650) SC SCH (09:37)
[2019-06-06] MEDS: DIGOXIN 0.125 MG TAB PO SCH (09:37)
[2019-06-06] MEDS: CHLORHEXIDINE GLUCONATE 0.12 % 15ML UDC (PERIDEX ORAL RINSE) MT SCH ×2 (09:37→20:06)
[2019-06-06] MEDS: BRIMONIDINE 0.15% OPHTH SOLN 5 ML OU SCH ×2 (09:38→20:06)
--- NOTE | 2019-06-06 09:39 | CCN ---
DATE: 06/06/2019 CRITICAL CARE TIME: 1 hour and 4 minutes. This excludes all procedures. At bedside this morning the patient is awake, able to follow some commands. Overnight received 11 doses of Versed. Currently on volume control tidal volume of 400, respiratory rate of 14, PEEP of 5 with FiO2 of 0.35. There is a son by the name of Pietro in the room, however, he states now that Wellington is the decision maker. We do not have this documented healthcare proxy within the chart. Pietro was updated in the room today. At bedside I attempted a spontaneous breathing trial pressure support 5/5. The patient has very low tidal volumes ranging from 130 to 230. This was after a few minutes, still had no improvement in his tidal volumes. Therefore we switched back to volume control. The tube feeds were started this morning. He has had low urine output. However, no evidence of renal failure. I conducted bedside ultrasound due to a blunting of the left costophrenic angle and there is at least moderate left pleural effusion. However, the patient has been on Eliquis. His Eliquis is now on hold to consider a potential thoracentesis once we identified healthcare proxy who is able to make decisions. PHYSICAL EXAMINATION: Pulse is 107-127 in atrial fibrillation, blood pressure is 127/64, oxygen saturation is 97% of 0.35 FiO2, respiratory rate 15, temperature is 98.9. GENERAL: The patient is calm on mechanical ventilation with eyes open tracking. Occasionally biting the tube. HEENT: Sclerae clear and anicteric. Pupils are 3 mm bilaterally pinpoint but reactive to light. Tongue is moist. Less tongue fasciculations today. Neck is supple. There is elevated jugular venous pulse (JVP). Carotid pulse is fairly prominent. The trachea is midline. PULMONARY: Decreased breath sounds throughout, especially at the left base. There is no accessory muscle use. The patient is barrel-chested. CARDIAC: Distant, irregularly irregular, S1, S2 with a point of maximum impulse (PMI) that is difficult to palpate. There is elevated JVP. Very minimal dependent edema. ABDOMEN: Scaphoid, soft, nontender, nondistended with prominent aortic pulsations. EXTREMITIES: Continues to have bilateral heel ulcerations and small areas of necrosis of the toes. SKIN: Pale without rashes or jaundice. Multiple pressure ulcers as described above. MUSCULOSKELETAL: Significant muscle wasting. No evidence of joint effusion or recent fracture. Laboratory evaluation shows a white blood cell count of 6.0, hemoglobin 9.6, platelet count of 133. Sodium 141 potassium 3.8, chloride 99, bicarb of 38, BUN of 21, creatinine 0.36. Arterial blood gas performed an FiO2 of 0.50 shows a pH of 7.43, pCO2 of 61, pAO2 of 142. Fingerstick this morning shows a glucose of 90. IMPRESSION: 1. Acute on chronic hypercarbic hypoxic respiratory failure. At this point in time the patient is unable to maintain adequate ventilation on his own. He failed spontaneous breathing trial. He does have a left pleural effusion. However, he was recently on Eliquis and therefore I have stopped his Eliquis anticipation for possible thoracentesis. At this point in time, the risk of the procedure outweighs the benefit as he does not have any fever and he has been on antibiotics. Therefore, it does not appear that the patient has sepsis from an un-diagnosed empyema. The pleural effusion is more likely secondary to volume status, possibly congestive heart failure versus hypoalbuminemia. 2. History of Pseudomonas sputum after presenting with respiratory symptoms consistent with pneumonia. I have added levofloxacin to his regimen so he has dual Pseudomonas coverage. 3. Malnutrition with poor oral intake over the past few weeks. The patient has been unable to tolerate tube feeds, therefore will start Reglan and Jevity at 1.5 at 30 mL an hour. 4. Chronic nonhealing wounds; no evidence of cellulitis at this point in time. Will continually monitor for signs and symptoms of ongoing infection and provide wound care and preventative measures towards skin breakdown. 5. Gastrointestinal (GI) prophylaxis on Protonix. 6. Deep venous thrombosis (DVT) prophylaxis on Lovenox.
[2019-06-06] MEDS: METOCLOPRAMIDE INJ 10MG/2ML VIAL (J2765) IV SCH ×2 (09:49→20:06)
[2019-06-06] MEDS: LevoFLOXacin IV 500 MG in APPROPRIATE DILUENT 1 EA IV SCH (20:06)
[2019-06-06] MEDS: LATANOPROST 0.005% OPHTH SOLN 2.5 ML OU SCH (20:06)
[2019-06-07] VITALS (10 sets, daily range): BP systolic 97–120; BP diastolic 55–72; O2SAT 98–100
[2019-06-07] MEDS: methylPREDNISolone INJ 125 MG/2 ML VIAL (J2930) IV SCH ×2 (00:08→06:45)
[2019-06-07] MEDS: PIPERACILLIN/TAZOBACTAM SOD 4.5 GM in D5W MINI-BAG PLUS 50 ML IV SCH ×3 (00:08→11:52)
[2019-06-07] MEDS: ALBUTEROL SULFATE 2.5 MG/0.5 ML INH NEB SOLN NEB SCH ×7 (00:20→23:52)
[2019-06-07] MEDS: MIDAZOLAM INJ 2 MG/2 ML VIAL (J2250) IV PRN ×3 (02:25→05:55)
[2019-06-07 03:51] LABS: HEMATOCRIT 28.5 % (42.0-52.0); HEMOGLOBIN 9.3 g/dl (13.5-17.5); LYMPH % 2.9 % (24.0-44.0); MEAN CORPUSCULAR HEMOGLOBIN 29.2 pg (27.0-33.0); MEAN CORPUSCULAR HGB CONC 32.6 g/dl (32.0-36.5); MEAN CORPUSCULAR VOLUME 89.6 fl (80.0-96.0); MONO # 0.4 10^3/uL (0.0-0.8); MONO % 5.8 % (0.0-5.0); NEUTROPHILS # 5.6 10^3/uL (1.8-7.7); NEUTROPHILS % 90.7 % (36.0-66.0); PLATELET COUNT, AUTOMATED 154 10^3/uL (150-450); RED BLOOD COUNT 3.18 10^6/uL (4.30-6.10); WHITE BLOOD COUNT 6.2 10^3/uL (4.0-10.0)
[2019-06-07 04:03] LABS: LYMPH # 0.2 10^3/uL (1.5-4.5)
[2019-06-07 04:12] LABS: ALBUMIN 2.5 GM/DL (3.2-5.2); ALT/SGPT 44 U/L (12-78); BILIRUBIN,TOTAL 0.8 MG/DL (0.2-1.0); BLOOD UREA NITROGEN 24 MG/DL (7-18); CARBON DIOXIDE LEVEL 40 MEQ/L (21-32); CHLORIDE LEVEL 99 MEQ/L (98-107); CREATININE FOR GFR 0.44 MG/DL (0.70-1.30); GLOMERULAR FILTRATION RATE > 60.0 (>35); GLUCOSE, FASTING 181 MG/DL (70-100); POTASSIUM SERUM 3.4 MEQ/L (3.5-5.1); SODIUM LEVEL 141 MEQ/L (136-145)
[2019-06-07 05:55] LABS: ABG BASE EXCESS 11.3 (-2.0-2.0); ABG HCO3 36.4 MEQ/L (22.0-26.0); ABG O2 SATURATION 98.1 % (95.0-99.0); ABG PARTIAL PRESSURE CO2 50.4 mmHg (35.0-45.0); ABG PARTIAL PRESSURE O2 100.1 mmHg (75.0-100.0); ABG STANDARD HCO3 35.1 MEQ/L (22.0-26.0); ABG TOTAL CO2 37.9 MEQ/L (23.0-31.0); ABG pH (ARTERIAL) 7.476 UNITS (7.350-7.450)
[2019-06-07] MEDS: HumaLOG INSULIN (NovoLOG) PER UNIT SC SCH ×3 (06:00→11:53)
[2019-06-07] MEDS: PANTOPRAZOLE 40MG INJ (PROTONIX) (C9113) IV SCH (06:44)
--- NOTE | 2019-06-07 08:03 | REP ---
Clinical: Respiratory failure. Comparison: 06/06/2019. Findings: Endotracheal tube extends to the right mainstem bronchus and requires repositioning. Nasogastric tube courses below left hemidiaphragm. Hyperinflation to the right hemithorax is noted. Diffuse chronic interstitial changes and mild left basilar atelectasis noted. Skeletal structures demonstrate degenerative changes primarily involving the thoracic spine and left shoulder. Impression: 1. Endotracheal tube extends into the right mainstem bronchus and requires repositioning. Electronically Signed by Shailesh Cain MD 06/07/2019 07:55 A
[2019-06-07] MEDS: CHLORHEXIDINE GLUCONATE 0.12 % 15ML UDC (PERIDEX ORAL RINSE) MT SCH (08:13)
[2019-06-07] MEDS: ENOXAPARIN 40 MG/0.4 ML SYRINGE (J1650) SC SCH (08:13)
[2019-06-07] MEDS: DIGOXIN 0.125 MG TAB PO SCH (08:14)
[2019-06-07] MEDS: METOCLOPRAMIDE INJ 10MG/2ML VIAL (J2765) IV SCH (08:14)
[2019-06-07] MEDS: BRIMONIDINE 0.15% OPHTH SOLN 5 ML OU SCH (08:15)
[2019-06-07 09:40] LABS: ABG pH (ARTERIAL) 7.488 UNITS (7.350-7.450)
[2019-06-07 09:41] LABS: ABG BASE EXCESS 9.1 (-2.0-2.0); ABG HCO3 33.4 MEQ/L (22.0-26.0); ABG O2 SATURATION 94.8 % (95.0-99.0); ABG PARTIAL PRESSURE CO2 45.1 mmHg (35.0-45.0); ABG PARTIAL PRESSURE O2 71.6 mmHg (75.0-100.0); ABG STANDARD HCO3 32.8 MEQ/L (22.0-26.0); ABG TOTAL CO2 34.8 MEQ/L (23.0-31.0)
[2019-06-07 09:42] LABS: ABG SITE RT BRACHIAL
[2019-06-07] MEDS: KCL 10MEQ/100ML SWI (KRUN) 10 MEQ in APPROPRIATE DILUENT 1 EA IV SCH ×2 (11:52→12:44)
--- NOTE | 2019-06-07 12:06 | CCN ---
DATE: 06/07/2019 Mr. Petty remains critically ill with acute and chronic hypercapnic respiratory failure leading to intubation. This a second intubation since 05/29/2019. This morning he is alert and awake. He is nodding to questions but it is not clear that the answer is appropriate. He is synchronous with the ventilator. His secretions remain copious and are described as stringy in character. He is described as having a good cough. In reviewing the notes by speech therapy, he has been aspirating and they recommended nothing by mouth diet and tube feedings. He was not tolerating those earlier but since Reglan has been intubated, he has been tolerating tube feeds at a low rate. No hemodynamic events overnight. He remains in atrial fibrillation. OBJECTIVE: PHYSICAL EXAMINATION: GENERAL: Mr. Petty is lying in bed synchronous with the ventilator in no acute distress. There is generalized muscle wasting. VITAL SIGNS: Temperature 99.2 with a T-max of 100.7, pulse 116, respiratory rate 16, sPO2 95% on FiO2 0.3, blood pressure 115/57 with a MAP of 76. HEENT: Anicteric, nares: Patent bilaterally. Oropharynx: Endotracheal (ET) tube and orogastric (OG) tube in place. Moist mucosa. NECK: Patent without thyromegaly or masses, trachea is midline. Limited mobility but not rigid. CHEST: Increased AP diameter and kyphosis. LUNGS: Symmetric excursion, generalized diminished air entry. No wheeze, rhonchi or crackle on tidal excursion. Prolonged expiratory phase. No accessory muscle use or retractions. CARDIOVASCULAR: Irregular regular rate, tachycardiac, no murmur, rub or gallop appreciated. ABDOMEN: Positive but diminished bowel sounds, soft, nondistended, no hepatosplenomegaly or masses appreciated. EXTREMITIES: Warm and well-perfused, without clubbing or cyanosis. He does have bilateral heel ulcers and small areas of necrosis on his toes. Palpable pedal pulses bilaterally. LABORATORY DATA: CBC from this morning showed a hemoglobin 9.3, hematocrit 28.5, platelet count 154,000, white blood cell count 6200 with a differential of 91% neutrophils, 3% lymphocytes, and 6% monocytes. Chemistry shows sodium 141, potassium 3.5, chloride 99, bicarbonate 40, anion gap 2, BUN 24, creatinine 0.404, glucose 181, calcium 8.0, total bilirubin 0.8, AST 25, ALT 44, alkaline phosphatase 32, total protein 5.0, albumin 2.5. Arterial blood gas this morning on assist control with a tidal volume 400, rate of 14, PEEP 5 and FiO2 of 0.435 was 7.48/36/50/100 with a measured saturation 98.1 and a base excess 11.3. Blood cultures remained negative since admission. There was a sputum culture from 06/03/2019 showed moderate growth of quick sensitive Pseudomonas aeruginosa. Most recent digoxin level from 06/03/2019 was 1.4. Yesterday's input and output showed 570 in, and 720 out making him -150. Thus far today, 180 in and 520 out making him -340. Weight 53.9 kg. I reviewed his chest x-ray as well as report from earlier today. That x-ray showed normal-appearing cardiac silhouette and pulmonary vascular shadows. There are normal-appearing mediastinum regions with chronic interstitial changes. No consolidated regions. There is evidence of hyperinflation. The endotracheal tube is pointed toward the right mainstem and needs to be pulled back. I also reviewed his chest CT pulmonary angiogram from 05/28/2019 and agree with the radiology read. ASSESSMENT/PLAN: 1. Acute on chronic respiratory hypercapnic and hypoxemic respiratory failure leading to mechanical ventilation. He has end-stage lung disease. I suspect that some, if not all, of his difficulties are secondary to inability to handle airway secretions +/- component of aspiration. I suspect that he has time periods when he has mucous plugging and given his severe lung disease, it would not take much to have worsened hypercapnia. 2. 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 Pulmonary cachexia. 4. Positive Pseudomonas sputum culture, though only moderate growth, and no evidence of significant infiltrate on CT scan when this culture was done. 5. Chronic nonhealing wounds. 6. Delirium. 7. Deep venous thrombosis (DVT) and stress ulcer prophylaxis in place. 8. Nutrition, tolerating low level tube feeds. Receiving Reglan. RECOMMENDATIONS 1. Will go on to a weaning trial to assess mechanical ability to tolerate extubation. 2. Will pull the endotracheal tube back a couple of centimeters. 3. However, I am concerned that even if he does mechanically qualify for extubation, he will not be able to manage his secretions and likely continue to have time periods of mucus plugging leading to worsening hypercapnia and respiratory failure. 4. It is not clear for me in the notes, whether or not the secretions are because of an acute bronchitis versus chronic bronchitis which we would not anticipate to get better. 5. If this is chronic bronchitis, there is nothing further to optimize and we would proceed with extubation once it is clarified from family as to the goals. If the goal is to continue to intubate him every time his has acute hypercapnic and chronic hypercapnic respiratory failure and his lungs are felt to be at baseline, I would recommend going on tracheostomy and percutaneous endoscopic gastrostomy (PEG) at this point. 6. PEG is also likely to be considered regardless because of his difficulties tolerating tube feeds. 7. However, given his overall comorbidities, I am not certain that is the best choice for this individual. He already has evidence of significant malnutrition and pulmonary wasting and it is unlikely that, even with these interventions, that his life would be prolonged for any significant period of time. ADDENDUM: Mr. Petty went on to a weaning trial with a PEEP of 5 and a pressure support of 5. On this trial, he did well. His rapid shallow breathing index was in the 40s which would predict success. An arterial blood gas on this setup with an FiO2 of 0.3 was 7.49/45/72 with a measured saturation of 95% and base excess of 9. As noted above, I would not proceed with extubation at this point because of the amount of secretions. If it is learned that is his baseline, then difficult decisions will need to be made prior to consideration of extubation or tracheostomy as outlined above. Critical care time 40 minutes not including procedure time. [facility]
[2019-06-07] MEDS ORDERED: HYOSCYAMINE SULFATE 0.125 MG SUBL TABLET PO PRN (13:45)
[2019-06-07] MEDS ORDERED: LORazepam 2 MG/ML VIAL (J2060) IV PRN (13:45)
[2019-06-07] MEDS ORDERED: ONDANSETRON 4MG/2ML VIAL (J2405) IV PRN (13:45)
[2019-06-07] MEDS ORDERED: SCOPOLAMINE 1MG TRANSDERMAL PATCH TOP PRN (13:45)
[2019-06-07] MEDS ORDERED: ACETAMINOPHEN 650 MG SUPP PR PRN (13:45)
[2019-06-07] MEDS ORDERED: FLEET ENEMA PR PRN (13:45)
[2019-06-07] MEDS ORDERED: ACETAMINOPHEN TAB 650MG DOSE (2X325MG) PO PRN (13:45)
[2019-06-07] MEDS ORDERED: BISACODYL 10 MG SUPP PR PRN (13:45)
[2019-06-07] MEDS ORDERED: ATROPINE SULFATE 1% OP SOLN 2 ML BTL SL PRN (13:45)
--- NOTE | 2019-06-07 15:25 | IPN ---
DATE: 06/07/2019 I had a discussion with Mr. Petty's family which included two of his sons, his daughter, and one of his son's significant other. We discussed how he had been prior to presenting to the hospital. Difficulties he had been having included significant weight loss over the past 6 months. He has a chronic cough with copious amount on secretions. He is described as "rattley" by his son's significant other. I discussed with them that he had passed a mechanical trial for extubation but that he has copious secretions which are likely his baseline based on the history they were giving me, he was most likely going to continue to have difficulty with mucous plugging, Given his severe lung disease this would likely cause worsened ventilation and eventually culminate in acute on chronic respiratory failure. I discussed with them that if they wanted to continue all cares, given his copious secretions and history of copious secretions it would be appropriate to go on a tracheostomy and gastric tube (G tube) at this time. I also reviewed with them, speech pathology's findings that he is aspirating and they recommended nothing by mouth diet. Another option would be to extubate him and do what we could in regards to decreasing the likelihood of mucous plugging but would make him a DO NOT RESUSCITATE/DO NOT INTUBATE. I discussed with them that this meant that all treatments would be offered short of intubation and cardiac resuscitation. A final option discussed was to extubate him and go to comfort cares. His daughter states that food is a big comfort to him and this status would allow him to eat as he wished. I discussed with them that the focus would be on him and his comfort rather than on medical optimization. I discussed with them that would be in discontinuing of labs and vital signs, as well as all medications short of comfort medications. The family approached me after they had discussed these options and requested comfort care. The decision was supported by the family members present (one son was not present). There was no healthcare proxy so the healthcare agent became his oldest child, which is one of his sons. Another son's significant other asked of he would be allowed to have oxygen and I assured her that he would. His daughter requested the oxygen not be elevated above his baseline level which is 2 liters and I agreed with her recommendation. He was then made comfort care. Total time: Fifteen minutes. HEDYD
[2019-06-07] MEDS ORDERED: methylPREDNISolone INJ 125 MG/2 ML VIAL (J2930) IV SCH (18:00)
[2019-06-08] MEDS: ALBUTEROL SULFATE 2.5 MG/0.5 ML INH NEB SOLN NEB SCH ×5 (04:00→19:24)
--- NOTE | 2019-06-08 11:11 | IPNPDOC ---
Date Seen The patient was seen on 06/08/19. Progress Note SUBJECTIVE: reports breathing is improved OBJECTIVE PHYSICAL EXAMINATION: VITAL SIGNS: Please see below. Gen: appears, appears somewhat dyspneic, easily fatigued with speaking Lungs: coarse breath sounds/rales bl Ext: no c/c/e LABORATORY DATA, IMAGING STUDIES, MICROBIOLOGY: Please see below. ASSESSMENT AND PLAN: PROBLEMS: # acute on chronic hypoxic and hypercapnic respiratory failure 2/2 COPD exacerbation. #Afib #DM #HL #BPH - transitioned yesterday to comfort care - comfort by mouth feeding, failed prior swallow eval - oxygen support - nebs - morphine prn VS, I&O, 24H, Fishbone Vital Signs/I&O Vital Signs Date Time Temp Pulse Resp B/P (MAP) Pulse Ox O2 Delivery O2 Flow Rate FiO2 06/07/19 20:15 2.0 06/07/19 12:00 99.2 112 20 120/65 (83) 95 06/07/19 12:00 35 06/07/19 04:20 Ventilator I&O- Last 24 Hours up to 6 AM 06/08/19 06:00 Intake Total 520 ml Output Total 540 ml Balance -20 ml Laboratory Data 24H LABS Laboratory Tests 2 06/07/19 11:23: Bedside Glucose (Misc Panel) 175H Microbiology Microbiology 06/05/19 Blood Culture - Preliminary, Resulted No Growth after 48 hours. All Specime... FAUSTO RODRIGUEZ MD Jun 08, 2019 11:11
[2019-06-09] MEDS: ALBUTEROL SULFATE 2.5 MG/0.5 ML INH NEB SOLN NEB SCH ×2 (04:00)
--- NOTE | 2019-06-09 11:16 | DS.PDOC ---
Discharge Summary General Date of Admission May 25, 2019 at 17:09 Date of Discharge June 08 2019 Attending Physician: FAUSTO RODRIGUEZ MD Discharge Summary PROCEDURES PERFORMED DURING STAY: [None]. ADMITTING DIAGNOSES: # acute on chronic hypoxic and hypercapnic respiratory failure 2/2 COPD exacerbation. #Afib #DM #HL #BPH DISCHARGE DIAGNOSES: # acute on chronic hypoxic and hypercapnic respiratory failure 2/2 COPD exacerbation. #Afib #DM #HL #BPH COMPLICATIONS/CHIEF COMPLAINT: Copd Exacerbation. HISTORY OF PRESENT ILLNESS: Patient is an 83-year-old male with a PMHx of Chronic hypoxic respiratory failure, COPD on 2L O2 by Venessa BREWER (on Digoxin / Xarelto), HTN, DM2, DLP and BPH who presented to the emergency room visit shortness of breath. Patient was brought into the ER by his son after he reported that he needed a mental health evaluation because he was feeling crazy. Upon arrival to emergency room, patient was found to be hypoxic. Patient was placed on nasal cannula o xygen and brought up to 2 L. Patients breathing had improved and mentation had improved. Patient has reported that hes been experiencing shortness of breath that has been progressive over 2 weeks. Patient also reports that hes been expressing a productive cough with yellowish sputum. Denied any blood. Patient denies any chest pain or palpitations. Patient has been compliant with his inhaled therapy, however he is unable to recall all of his inhaled therapy. Does report that he uses Albuterol and Spiriva. Patient denies any nausea, vomiting, abdominal pain, diarrhea or discomfort with urination. Patient does report constipation. . He denies any fevers in the last 2 weeks, he does report chills. Patients family has also reported that he has experienced a weight loss of approximately 20 pounds over 1-2 months. Patient has reported a poor appetite. Patient currently lives alone. Patient reports that he may require further assistance moving forward and family is suggesting intermediate placement. HOSPITAL COURSE: Pt was intubated and managed for end stage COPD while in the ICU. While patient was in the ICU a family meeting was held where his continued difficulty with mucous plugging and severe lung disease causing worsenig ventilation was discussed and that even if he was extubated he would likely need to be reintubated due to copious secretions. He also failed a swallow evaluation. Trach + PEG was discussed with family but family decided on comfort care. Patient was extubated and comfort measures initiated. He on 06/08/2019. DISCHARGE MEDICATIONS na ALLERGIES: Please see below. PHYSICAL EXAMINATION ON DISCHARGE: n/a LABORATORY DATA: Please see below. DISPOSITION: . TIME SPENT ON DISCHARGE: Greater than 30 minutes. Vital Signs/I&Os Vital Signs Date Time Temp Pulse Resp B/P (MAP) Pulse Ox O2 Delivery O2 Flow Rate FiO2 06/08/19 09:00 2.0 06/07/19 12:00 99.2 112 20 120/65 (83) 95 06/07/19 12:00 35 06/07/19 04:20 Ventilator I&O- Last 24 Hours up to 6 AM 06/09/19 06:00 Intake Total 180 ml Output Total 325 ml Balance -145 ml Microbiology Microbiology 06/05/19 Blood Culture - Preliminary, Resulted No Growth after 72 hours. All specime... Discharge Medications Scheduled Brimonidine Tartrate (Brimonidine Tartrate) 0.15% 5ML Drops, 1 DROP OU BID, (Reported) Brinzolamide (Azopt) 1% 10ML Drops.susp, 1 DROP OU BID, (Reported) Budesonide/Formoterol (Symbicort 160-4.5 Mcg Inhaler) 6 Gm Hfa.aer.ad, 2 PUFF INH BID, (Reported) Digoxin (Digoxin) 125 Mcg Tablet, 125 MCG PO DAILY, (Reported) Montelukast Sodium (Montelukast Sodium) 10 Mg Tablet, 10 MG PO DAILY, (Reported) Rivaroxaban (Xarelto) 10 Mg Tablet, 10 MG PO DAILY, (Reported) Rosuvastatin Calcium (Rosuvastatin Calcium) 5 Mg Tablet, 5 MG PO DAILY, (Repor mariely) Tamsulosin Hcl (Tamsulosin HCl) 0.4 Mg Capsule, 0.4 MG PO DAILY, (Reported) Tiotropium [place] (Spiriva) 18 Mcg Cap.w.dev, 18 MCG INH DAILY, (Reported) Travoprost (Travatan Z) 0.004% 2.5ML Drops, 1 DROP OU QHS, (Reported) Scheduled PRN Albuterol Sulfate (Ventolin Hfa) 18 Gm Hfa.aer.ad, 2 PUFF INH Q4H PRN for SHORTNESS OF BREATH, (Reported) Allergies Coded Allergies: No Known Allergies (Verified , 11/18/09) FAUSTO RODRIGUEZ MD Jun 09, 2019 11:16
--- NOTE | 2019-06-13 05:35 | IPNPDOC ---
Date Seen The patient was seen on 06/06/19. Progress Note SUBJECTIVE: Patient is a 83 yo male who was admitted for copd exacerbation 2/2 pna - currently on abx but has been having a lot of sputum production and worsening (decreasing) ph and (increasing) pco2 level. Yesterday patient was transfered to ICU for worsened co2 retention and decreasing pH . The initial intention was for him to be placed on bipap; however , when the icu attending saw him , he became unresponsive and was intubated. I both with both sons via tele re his goals of care and both said he would want to be intubated because he always said he wanted eveything to be done. I saw with his daughter at bedside who thinks he was going through too much and she said she will talk to her other siblings to make him dni/dnr and comfortable rather than recurrent intubations. OBJECTIVE PHYSICAL EXAMINATION: VITAL SIGNS: Please see below. Physical exam Gen: NAD, chronic ill appearance HEENT: normocephalic, atraumatic, no discharge from ears or nose, no oropharyngeal erythema or exudate, neck is supple, no lymphadenopathy, trachea midline CVS: RRR, normal S1n S2, no murmur, rubs, or gallops, no edema, no jvd Resp: moderately diffused rhonchi b/l, lots of sputum production - improved pt is intubated but awake , but no wheezes or crackles Abd : soft nontender, normal bowel sounds, no rebound tenderness or guarding MSK: no swelling, full range of motion, strength 5/5 - generalized weakness skin -- stage 2 heel preswsure ulcers, b/l tip of great toe with cyanosis Neuro: no confusion, no focal deficit Psych: normal mood and affect LABORATORY DATA, IMAGING STUDIES, MICROBIOLOGY: Please see below. 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 -intubated 05/28 and extubated 05/30. reintubated yesterday -CXR 05/25: Diffuse interstitial infiltrate in left lung -s/p levaquin 05/25-05/28/19, changed to Zosyn 05/28 - -CXR 06/03 with Asymmetric left lower lobe opacities may reflect an acute infiltrate and - on methylprednisolone 60mg q6h - will change to q8h - diffuse rhonchi and copious amount of sputum production - chest pt -c/w zosyn for now - already received >7 days of abx , but given ?new opacity on 06/03, will differ abx to critical care attending -abg - improving A. fib - rate controlled on digoxin -beta griselda could not be used due to hypotension -c/w full anticoagulation with Xarelto DM2 - Patient is reported that he has a history of diabetes but is currently not on any medications - reviewd A1c5.7 - ngt restarted HLD - resume statin once safe for po intake. BPH - resume once safe for po intake. diet//funtional status generalized weakness npo - due to aspiration risks hypoglycemic protocol getting OT Large infrarenal AAA -no signs of severe anemia -monitor blood pressure Pulmonary spiculated nodule -most likely malignancy in light of history of smoking -pt is not a candidate for biopsy and chemo/resection due to severe comorbid conditions code status: full code - VS, I&O, 24H, Fishbone Vital Signs/I&O Vital Signs Date Time Temp Pulse Resp B/P (MAP) Pulse Ox O2 Delivery O2 Flow Rate FiO2 06/06/19 20:00 35 06/06/19 20:00 99.2 112 112/65 (81) 95 06/06/19 16:00 15 06/05/19 16:33 2.0 06/05/19 02:59 Nasal Cannula I&O- Last 24 Hours up to 6 AM 06/06/19 06:00 Intake Total 2560 ml Output Total 640 ml Balance 1920 ml Laboratory Data 24H LABS Laboratory Tests 2 06/06/19 00:18: Bedside Glucose (Misc Panel) 128H 06/06/19 05:34: Bedside Glucose (Misc Panel) 88 06/06/19 06:40: Blood Gas Bicarbonate Standard 36.6H, Arterial Blood pH 7.427, Arterial Blood Partial Pressure CO2 60.8*H, Arterial Blood Partial Pressure O2 142.2H, Arterial Blood Total CO2 41.0H, Arterial Blood HCO3 39.2H, Arterial Blood Base Excess 12.8H, Arterial Blood Oxygen Saturation 99.1H 06/06/19 07:04: Nucleated Red Blood Cells % (auto) 0.0, Anion Gap 4L, Glomerular Filtration Rate > 60.0, Blood Urea Nitrogen 21H, Creatinine 0.36L, Sodium Level 141, Potassium Level 3.8, Chloride Level 99, Carbon Dioxide Level 38H, Calcium Level 7.9L 06/06/19 11:44: Bedside Glucose (Misc Panel) 131H 06/06/19 17:44: Bedside Glucose (Misc Panel) 156H CBC/BMP Laboratory Tests 06/06/19 07:04 Red Blood Count 3.22 L, Mean Corpuscular Volume 95.3, Mean Corpuscular Hemoglob in 29.8, Mean Corpuscular Hemoglobin Concent 31.3 L, Red Cell Distribution Width 13.8, Calcium Level 7.9 L Microbiology Microbiology 06/05/19 Blood Culture - Preliminary, Resulted No growth after 24 hours . All specim... SAMAN CAMPOS MD Jun 06, 2019 23:00
--- NOTE | 2019-06-13 05:39 | IPNPDOC ---
Date Seen The patient was seen on 06/07/19. Progress Note SUBJECTIVE: Patient is a 83 yo male who was admitted for copd exacerbation 2/2 pna - currently on abx but has been having a lot of sputum production and worsening (decreasing) ph and (increasing) pco2 level. intubation x2 on this admission due to copius amount of mucous which patient is not likely to clear adequtely and recurrent co2 retention with hypercapnic and hypoxia resp failure. Patient looked better today. He is awake and responsive.weening trial was planned in the AM, but later in the day, I was informed by the nurse that the family requested extubation and made the patient comfort care. OBJECTIVE PHYSICAL EXAMINATION: VITAL SIGNS: Please see below. Physical exam Gen: NAD, chronic ill appearance HEENT: normocephalic, atraumatic, no discharge from ears or nose, no carmella pharyngeal erythema or exudate, neck is supple, no lymphadenopathy, trachea midline CVS: RRR, normal S1n S2, no murmur, rubs, or gallops, no edema, no jvd Resp: moderately diffused rhonchi b/l, lots of sputum production - improved pt is intubated but awake , but no wheezes or crackles Abd : soft nontender, normal bowel sounds, no rebound tenderness or guarding MSK: no swelling, full range of motion, strength 5/5 - generalized weakness skin -- stage 2 heel pressure ulcers, b/l tip of great toe with cyanosis Neuro: no confusion, no focal deficit Psych: normal mood and affect LABORATORY DATA, IMAGING STUDIES, MICROBIOLOGY: Please see below. 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 -intubated 05/28 and extubated 05/30. reintubated yesterday -CXR 05/25: Diffuse interstitial infiltrate in left lung -s/p levaquin 05/25-05/28/19, changed to Zosyn 05/28 - -CXR 06/03 with Asymmetric left lower lobe opacities may reflect an acute infiltrate and - on methylprednisolone 60mg q6h - will change to q8h - diffuse rhonchi and copious amount of sputum production - chest pt -c/w zosyn for now - already received >7 days of abx , but given ?new opacity on 06/03, will differ abx to critical care attending -abg - improving A. fib - rate controlled on digoxin -beta griselda could not be used due to hypotension -c/w full anticoagulation with Xarelto DM2 - Patient is reported that he has a history of diabetes but is currently not on any medications DNR/DNI - comfort care VS, I&O, 24H, Fishbone Vital Signs/I&O Vital Signs Date Time Temp Pulse Resp B/P (MAP) Pulse Ox O2 Delivery O2 Flow Rate FiO2 06/07/19 05:00 100.7 101 22 111/72 (85) 99 06/07/19 04:20 Ventilator 35 06/05/19 16:33 2.0 I&O- Last 24 Hours up to 6 AM 06/07/19 06:00 Intake Total 590 ml Output Total 965 ml Balance -375 ml Laboratory Data 24H LABS Laboratory Tests 2 06/06/19 11:44: Bedside Glucose (Misc Panel) 131H 06/06/19 17:44: Bedside Glucose (Misc Panel) 156H 06/07/19 00:12: Bedside Glucose (Misc Panel) 134H 06/07/19 03:26: Immature Granulocyte % (Auto) 0.6, White Blood Count 6.2, Red Blood Count 3.18L, Hemoglobin 9.3L, Hematocrit 28.5L, Mean Corpuscular Volume 89.6, Mean Corpuscular Hemoglobin 29.2, Mean Corpuscular Hemoglobin Concent 32.6, Red Cell Distribution Width 14.0, Platelet Count 154, Neutrophils (%) (Auto) 90.7H, Lymphocytes (%) (Auto) 2.9L, Monocytes (%) (Auto) 5.8H, Eosinophils (%) (Auto) 0.0, Basophils (%) (Auto) 0.0, Neutrophils # (Auto) 5.6, Lymphocytes # (Auto) 0.2L, Monocytes # (Auto) 0.4, Eosinophils # (Auto) 0.0, Basophils # (Auto) 0.0, Nucleated Red Blood Cells % (auto) 0.0, Anion Gap 2L, Glomerular Filtration Rate > 60.0, Blood Urea Nitrogen 24H, Creatinine 0.44L, Sodium Level 141, Potassium Level 3.4L, Chloride Level 99, Carbon Dioxide Level 40H, Calcium Level 8.0L, Aspartate Amino Transf (AST/SGOT) 25, Alanine Aminotransferase (ALT/SGPT) 44, Alkaline Phosphatase 32L, Total Bilirubin 0.8#, Total Protein 5.0#L, Albumin 2.5L, Albumin/Globulin Ratio 1.00 06/07/19 05:38: Blood Gas Bicarbonate Standard 35.1H, Arterial Blood pH 7.476H, Arterial Blood Partial Pressure CO2 50.4H, Arterial Blood Partial Pressure O2 100.1H, Arterial Blood Total CO2 37.9H, Arterial Blood HCO3 36.4H, Arterial Blood Base Excess 11.3H, Arterial Blood Oxygen Saturation 98.1 06/07/19 06:51: Bedside Glucose (Misc Panel) 138H CBC/BMP Laboratory Tests 06/07/19 03:26 Red Blood Count 3.18 L, Mean Corpuscular Volume 89.6, Mean Corpuscular Hemoglobin 29.2, Mean Corpuscular Hemoglobin Concent 32.6, Red Cell Distribution Width 14.0, Neutrophils (%) (Auto) 90.7 H, Lymphocytes (%) (Auto) 2.9 L, Monocytes (%) (Auto) 5.8 H, Eosinophils (%) (Auto) 0.0, Basophils (%) (Auto) 0.0, Neutrophils # (Auto) 5.6, Lymphocytes # (Auto) 0.2 L, Monocytes # (Auto) 0.4, Eosinophils # (Auto) 0.0, Basophils # (Auto) 0.0, Calcium Level 8.0 L, Aspartate Amino Transf (AST/SGOT) 25, Alanine Aminotransferase (ALT/SGPT) 44, Alkaline Phosphatase 32 L, Total Bilirubin 0.8 #, Total Protein 5.0 #L, Albumin 2.5 L Microbiology Microbiology 06/05/19 Blood Culture - Preliminary, Resulted No growth after 24 hours . All specim... SAMAN CAMPOS MD Jun 07, 2019 07:36
== END 2019-06-08 19:17 | disposition expired | DRG 208 ==
LOC: M ED 15:30 → M ED INP 17:09 → M MS5PR 18:35 → M PCU 05-28 17:53 → M ICU 05-28 23:02 → M PCU 06-02 05:38 → M ICU 06-05 16:33 → M MSPAV 06-07 16:48
PROVIDERS: ADMIT Internal Medicine; ATTEND Internal Medicine
PROC: 5A1945Z Respiratory Ventilation, 24-96 Consecutive Hours (ICD-10-PCS; principal; 2019-05-29)
PROC: 0BH17EZ Insertion of Endotracheal Airway into Trachea, Via Natural or Artificial Opening (ICD-10-PCS; 2019-05-29)
PROC: 06HM33Z Insertion of Infusion Device into Right Femoral Vein, Percutaneous Approach (ICD-10-PCS; 2019-05-29)
PROC: 0BH17EZ Insertion of Endotracheal Airway into Trachea, Via Natural or Artificial Opening (ICD-10-PCS; 2019-06-05)
DX: J15.1 Pneumonia due to Pseudomonas (principal); G93.41 Metabolic encephalopathy; J96.21 Acute and chronic respiratory failure with hypoxia; J96.22 Acute and chronic respiratory failure with hypercapnia; J44.0 Chronic obstructive pulmonary disease with (acute) lower respiratory infection; E87.1 Hypo-osmolality and hyponatremia; E87.2 Acidosis; J44.1 Chronic obstructive pulmonary disease with (acute) exacerbation; C34.32 Malignant neoplasm of lower lobe, left bronchus or lung; E46 Unspecified protein-calorie malnutrition; Z51.5 Encounter for palliative care; Z66 Do not resuscitate; I48.91 Unspecified atrial fibrillation; G31.84 Mild cognitive impairment of uncertain or unknown etiology; I71.4 Abdominal aortic aneurysm, without rupture; E11.9 Type 2 diabetes mellitus without complications; E87.6 Hypokalemia; N40.0 Benign prostatic hyperplasia without lower urinary tract symptoms; F32.89 Other specified depressive episodes; E78.5 Hyperlipidemia, unspecified; K59.00 Constipation, unspecified; Z98.41 Cataract extraction status, right eye; Z98.42 Cataract extraction status, left eye; Z87.891 Personal history of nicotine dependence; Z79.01 Long term (current) use of anticoagulants; Z99.81 Dependence on supplemental oxygen; Z79.899 Other long term (current) drug therapy